=== PATIENT | female | born 1955 ===

== ENCOUNTER 2020-03-05 14:12 | Outpatient (REF) | payer MEDICARE, MEDICAID, SELFPAY ==
--- NOTE | 2020-03-05 15:22 | XR_ITS ---
EXAMINATION: XR CHEST CLINICAL INFORMATION: Asthma. COMPARISON: Chest x-ray 04/08/2008. TECHNIQUE: 2 views of the chest were obtained. FINDINGS: Lungs are clear. No pulmonary vascular congestion. There is no pleural effusion. The heart size is normal. The cardiac and mediastinal contours are normal. There are multilevel degenerative changes of dorsal spine. Orthopedic plate and screw at lower cervical spine. XR/XR chest 2V IMPRESSION: Unremarkable examination.
== END 2020-03-05 14:13 | disposition home or self-care (01) ==
LOC: HO.XRAY 14:12
PROVIDERS: PCP Internal Medicine; Visit Provider Internal Medicine
DX: J45.909 Unspecified asthma, uncomplicated (principal); R06.00 Dyspnea, unspecified; J98.4 Other disorders of lung; E66.9 Obesity, unspecified
CPT/HCPCS: 71046; 99202

== ENCOUNTER 2020-03-18 09:00 | Outpatient (RCR) | payer MEDICARE, MEDICAID, SELFPAY | END 2020-05-19 11:53 | disposition home or self-care (01) | LOC: HO.PTCHIC 09:00 | PROVIDERS: PCP Internal Medicine; Visit Provider Physician Assistant | DX: M54.5 Low back pain (principal) | CPT/HCPCS: 97014; 97110; 97140 ==

== ENCOUNTER 2020-04-08 08:39 | Outpatient (REF) | payer MEDICARE, MEDICAID, SELFPAY | END 2020-04-08 08:40 | disposition home or self-care (01) | LOC: HO.HMGCLDS 08:39 | PROVIDERS: PCP Internal Medicine; Visit Provider Internal Medicine | DX: Z20.828 Contact with and (suspected) exposure to other viral communicable diseases (principal) | CPT/HCPCS: C9803; U0003 ==

== ENCOUNTER 2020-05-01 09:34 | Outpatient (REF) | payer MEDICARE, MEDICAID, SELFPAY ==
[2020-05-01 11:25] LABS: Hematocrit 42.6 % (37-47); Hemoglobin 13.6 g/dl (12.0-16.0); Mean Corpuscular HGB Conc 31.9 g/dl (31.0-35.0); Mean Corpuscular Hemoglobin 28.5 pg (27.0-33.0); Mean Corpuscular Volume 89.1 fL (80-98); Mean Platelet Volume 11.4 fL (9.4-12.3); Platelet Count 288 X10*3/uL (160-400); Red Blood Count 4.78 X10*6/uL (4.20-5.50); Red Cell Distribution Width 13.7 % (11.0-16.0); White Blood Count 8.8 X10*3/uL (4.8-10.8)
[2020-05-01 11:38] LABS: Estimated Average Glucose 160 mg/dL; Hemoglobin A1c % 7.2 %
[2020-05-01 12:05] LABS: Thyroid Stimulating Hormone 2.32 uIU/mL (0.32-4.0)
[2020-05-01 12:07] LABS: Alanine Aminotransferase 25 U/L (0-31); Alkaline Phosphatase 86 U/L (39-117); Anion Gap 12 (12-20); Aspartate Amino Transferase 23 U/L (5-31); Bilirubin Direct 0.2 mg/dL (0.0-0.5); Bilirubin Total 0.4 mg/dL (0.0-1.0); Blood Urea Nitrogen 13 mg/dL (9-16); Calcium 8.9 mg/dL (8.4-10.2); Carbon Dioxide 31 mmol/L (22-29); Chloride 101 mmol/L (96-108); Cholesterol 164 mg/dL; Estimated Glomerular Filt Rate > 60; Glucose Random 167 mg/dL (60-115); HDL Cholesterol 66 mg/dL; LDL Cholesterol Calculated 79 mg/dl; Potassium 4.3 mmol/l (3.3-5.1); Sodium 140 mmol/L (135-145); Total Protein 6.4 g/dL (6.5-8.0); Triglycerides 99 mg/dL
== END 2020-05-01 09:35 | disposition home or self-care (01) ==
LOC: HO.HMGCLDS 09:34
PROVIDERS: PCP Internal Medicine; Visit Provider Internal Medicine
DX: E11.9 Type 2 diabetes mellitus without complications (principal); F33.2 Major depressive disorder, recurrent severe without psychotic features
CPT/HCPCS: 36415; 80048; 80061; 80076; 83036; 84443; 85027

== ENCOUNTER 2020-05-26 | Outpatient (REF) | payer MEDICARE, MEDICAID, SELFPAY ==
--- NOTE | 2020-05-26 11:56 | PFT_ITS ---
Forced vital capacity, FEV1, [id number], and MVV are all normal. Post bronchodilator therapy, there is no change. Total lung capacity is slightly decreased, the residual volume moderately decreased. Diffusion capacity normal. CONCLUSION: Mild restrictive pulmonary disorder. No evidence of obstructive airway disorder. Brissa Chirinos MD MSB/MODL / [id number]
== END 2020-05-26 00:01 | disposition home or self-care (01) ==
LOC: HO.RESP
PROVIDERS: PCP Internal Medicine; Visit Provider Internal Medicine
DX: R06.00 Dyspnea, unspecified (principal); F17.210 Nicotine dependence, cigarettes, uncomplicated; J45.909 Unspecified asthma, uncomplicated
CPT/HCPCS: 94060; 94727; 94729

== ENCOUNTER 2020-06-17 12:29 | Outpatient (REF) | payer MEDICARE, MEDICAID, SELFPAY ==
[2020-06-17 13:41] LABS: Anion Gap 15 (12-20); Blood Urea Nitrogen 13 mg/dL (9-16); Calcium 8.9 mg/dL (8.4-10.2); Carbon Dioxide 28 mmol/L (22-29); Chloride 103 mmol/L (96-108); Estimated Glomerular Filt Rate > 60; Glucose Random 139 mg/dL (60-115); Sodium 142 mmol/L (135-145)
== END 2020-06-17 12:30 | disposition home or self-care (01) ==
LOC: HO.LAB 12:29
PROVIDERS: PCP Internal Medicine; Visit Provider Internal Medicine Cardiovascular Disease
DX: I10 Essential (primary) hypertension (principal)
CPT/HCPCS: 36415; 80048

== ENCOUNTER → 2020-06-20 09:45 | Outpatient (BNVA) | payer MEDICARE, MEDICAID, SELFPAY | PROVIDERS: PCP Internal Medicine; Visit Provider Nurse Practitioner Gerontology | DX: E11.42 Type 2 diabetes mellitus with diabetic polyneuropathy (principal); I10 Essential (primary) hypertension; E78.5 Hyperlipidemia, unspecified; E66.9 Obesity, unspecified | CPT/HCPCS: 82947; 99212 ==

== ENCOUNTER → 2020-07-17 09:00 | Outpatient (BNVA) | payer MEDICARE, MEDICAID, SELFPAY | PROVIDERS: PCP Internal Medicine; Visit Provider Nurse Practitioner Gerontology | DX: Z13.89 Encounter for screening for other disorder (principal) | CPT/HCPCS: Q3014 ==

== ENCOUNTER → 2020-09-04 07:55 | Outpatient (REF) | payer MEDICARE, MEDICAID, SELFPAY ==
--- NOTE | ~2020-09-04 | NM_ITS ---
Myocardial perfusion study Indication: Chest pain to evaluate for myocardial ischemia Technique: The patient was brought in for a Lexiscan perfusion study on 09/04/2020. Patient performed low-level exercise and was injected 0.4 mg of Lexiscan intravenously. Within a minute of injection, 30 mCi of sestamibi was given intravenously. Images were obtained using the SPECT gamma camera interlaced with the gating device. Images were obtained in supine position. Resting perfusion study was performed on 09/05/2020. Patient was administered 30 mCi of sestamibi intravenously at rest. Images were then obtained in supine position. Images obtained with and without CT attenuation. Total DLP 112 mGy-cm. Images were processed with the software and compared side to side in short axis, horizontal long axis and vertical long axis views. Findings: The stress perfusion study showed non attenuated images show mildly to moderately reduced uptake in the lateral and anterolateral wall of the LV myocardium. Is also mildly reduced uptake in the basal inferior wall of the LV myocardium. Mildly reduced attenuation corrected images show some thinning of the distal anterior and mildly reduced uptake in the apex of the LV myocardium.. The gated study shows normal LV systolic function with calculated LVEF of 58%. LV cavity is mildly dilated size. The gated study shows normal systolic wall thickening and contraction of segments. Resting study shows non attenuated images show improved uptake in the lateral and anterolateral wall of the LV myocardium. Remainder of the LV myocardium is normally perfused. Attenuation corrected images show mildly reduced uptake in the apex of the LV myocardium.. Gating at rest reveals normal systolic wall motion with ejection fraction at 52%. The findings are consistent with mild to moderate intensity reversible defect of the lateral anterolateral wall non attenuated images, with normalized uptake on attenuated corrected images there is equivocal finding.. NM/NM misa perf SPECT rest & str Impression: 1. Myocardial perfusion imaging study shows equivocal for anterolateral and lateral ischemia. 2. Gated LVEF is 58% 3. Transient ischemic dilatation not present EKG is nondiagnostic for ischemia
--- NOTE | 2020-09-04 08:00 | CA_ITS ---
Acquisition Time: 2020-09-04 08:03:47 Total Exercise Time: 00:02:00 Test Indications: Chest Pain Medications: SEE H Protocol: LEXISCAN Max HR: 102 BPM 65% of Pred: 155 BPM Max BP: 124/070 mmHG Max Work Load: 1.6 METS Pharmacological stress test using Lexiscan while walking ontreadmill for 2 min. Pt tolerated well, Reports chest heaviness after Lexiscan injection 11/01, down to 3/10. Reserved with Aminophyline 75 mg IV. EKG with multiple multifocle PVC's, non-diagnostic for ischemia. Nuclear images to follow. Normotensive response to test. Test reviewed with Dr. Samuel. Referred By: Kris Barnes Overread By: Joana Bardales NP
== END ==
LOC: HO.CARD 07:55
PROVIDERS: PCP Internal Medicine; Visit Provider Internal Medicine Cardiovascular Disease
DX: R07.9 Chest pain, unspecified (principal)
CPT/HCPCS: 78452; 93016; 93017; 93018; A9500; J0280; J2785

== ENCOUNTER → 2020-09-16 09:52 | Outpatient (BNVA) | payer MEDICARE, MEDICAID, SELFPAY | PROVIDERS: PCP Internal Medicine; Visit Provider Nurse Practitioner Gerontology | DX: E11.42 Type 2 diabetes mellitus with diabetic polyneuropathy (principal); I10 Essential (primary) hypertension; E78.5 Hyperlipidemia, unspecified; E66.9 Obesity, unspecified | CPT/HCPCS: 82947; 99212 ==

== ENCOUNTER 2020-10-08 08:48 | Outpatient (REF) | payer MEDICARE, MEDICAID, SELFPAY ==
--- NOTE | ~2020-10-08 | XR_ITS ---
EXAMINATION: XR HIP, LEFT CLINICAL INFORMATION: Primary osteoarthritis. COMPARISON: None TECHNIQUE: Two views of the left hip. FINDINGS: There is minimal loss of left hip joint space without periarticular spurring. No loose bodies or joint effusion seen. There are enthesophytes along the greater trochanter. XR/XR hip LT min 2V IMPRESSION: Minimal loss of left hip joint space, likely early degenerative osteoarthritic changes. No visible acute fracture or dislocation. Mild enthesophytes along the greater trochanter.
== END 2020-10-08 08:49 | disposition home or self-care (01) ==
LOC: HO.XRAY 08:48
PROVIDERS: PCP Internal Medicine; Visit Provider Nurse Practitioner Family
DX: M53.3 Sacrococcygeal disorders, not elsewhere classified (principal); M16.12 Unilateral primary osteoarthritis, left hip
CPT/HCPCS: 73502; 99212

== ENCOUNTER → 2020-10-21 09:54 | Outpatient (BNVA) | payer MEDICARE, MEDICAID, SELFPAY | PROVIDERS: PCP Internal Medicine; Visit Provider Dietitian, Registered | DX: E11.42 Type 2 diabetes mellitus with diabetic polyneuropathy (principal) | CPT/HCPCS: 97802 ==

== ENCOUNTER → 2020-10-22 09:25 | Outpatient (BNVA) | payer MEDICARE, MEDICAID, SELFPAY | PROVIDERS: PCP Internal Medicine; Visit Provider Nurse Practitioner Family | DX: M53.3 Sacrococcygeal disorders, not elsewhere classified (principal); M16.12 Unilateral primary osteoarthritis, left hip | CPT/HCPCS: 99212 ==

== ENCOUNTER → 2020-11-07 08:49 | Outpatient (BNVA) | payer MEDICARE, MEDICAID, SELFPAY | PROVIDERS: PCP Internal Medicine; Visit Provider Nurse Practitioner Family | DX: M53.3 Sacrococcygeal disorders, not elsewhere classified (principal); M16.12 Unilateral primary osteoarthritis, left hip; Z79.899 Other long term (current) drug therapy | CPT/HCPCS: 99212 ==

== ENCOUNTER 2020-12-03 06:33 | Outpatient (REF) | payer MEDICARE, MEDICAID, SELFPAY ==
--- NOTE | ~2020-12-03 | FL_ITS ---
EXAMINATION: XR FLUOROSCOPY WITH IMAGES CLINICAL INFORMATION: M53.3 - Sacrococcygeal disorders, not elsewhere classified COMPARISON: MR lumbar spine 12/02/2017 TECHNIQUE: Fluoroscopy performed by Any Rodarte NP. Fluoroscopy time: 0.4 minutes DAP: 5.44 Gycm2 Images: 3 FINDINGS: There are spinal needles overlying the lower aspect of the left SI joint and the right SI joint. There is another needle coarsening midline, possibly overlying the patient. FL/FL guidance in treatment room IMPRESSION: Fluoroscopy for pain management procedures.
== END 2020-12-03 06:34 | disposition home or self-care (01) ==
LOC: HO.RADIR 06:33
PROVIDERS: Visit Provider Internal Medicine
DX: M53.3 Sacrococcygeal disorders, not elsewhere classified (principal)
CPT/HCPCS: 27096; J1040; Q9967

== ENCOUNTER → 2020-12-04 08:36 | Outpatient (BNVA) | payer MEDICARE, MEDICAID, SELFPAY | PROVIDERS: PCP Internal Medicine; Visit Provider Nurse Practitioner Family | DX: M53.3 Sacrococcygeal disorders, not elsewhere classified (principal); M16.12 Unilateral primary osteoarthritis, left hip | CPT/HCPCS: 99212 ==

== ENCOUNTER → 2021-01-02 13:57 | Outpatient (BNVA) | payer MEDICARE, MEDICAID, SELFPAY | PROVIDERS: PCP Internal Medicine; Visit Provider Nurse Practitioner Family | DX: M96.1 Postlaminectomy syndrome, not elsewhere classified (principal); M54.2 Cervicalgia; M54.16 Radiculopathy, lumbar region | CPT/HCPCS: 99212 ==

== ENCOUNTER → 2021-01-15 08:55 | Outpatient (BNVA) | payer MEDICARE, MEDICAID, SELFPAY | PROVIDERS: PCP Internal Medicine; Visit Provider Dietitian, Registered | DX: E11.42 Type 2 diabetes mellitus with diabetic polyneuropathy (principal) | CPT/HCPCS: 97803 ==

== ENCOUNTER → 2021-01-30 12:53 | Outpatient (BNVA) | payer MEDICARE, MEDICAID, SELFPAY | PROVIDERS: Visit Provider Nurse Practitioner Family | DX: Z51.81 Encounter for therapeutic drug level monitoring (principal); M53.3 Sacrococcygeal disorders, not elsewhere classified; M16.12 Unilateral primary osteoarthritis, left hip | CPT/HCPCS: 99212 ==

== ENCOUNTER → 2021-02-27 09:49 | Outpatient (BNVA) | payer MEDICARE, MEDICAID, SELFPAY | PROVIDERS: Visit Provider Nurse Practitioner Family | DX: Z51.81 Encounter for therapeutic drug level monitoring (principal); M54.16 Radiculopathy, lumbar region; M54.2 Cervicalgia; M96.1 Postlaminectomy syndrome, not elsewhere classified | CPT/HCPCS: 99212 ==

== ENCOUNTER → 2021-03-24 10:02 | Outpatient (BNVA) | payer MEDICARE, MEDICAID, SELFPAY | PROVIDERS: PCP Internal Medicine; Visit Provider Nurse Practitioner Gerontology | DX: M54.2 Cervicalgia (principal); M96.1 Postlaminectomy syndrome, not elsewhere classified; M47.819 Spondylosis without myelopathy or radiculopathy, site unspecified; E11.42 Type 2 diabetes mellitus with diabetic polyneuropathy; E78.5 Hyperlipidemia, unspecified; E66.9 Obesity, unspecified; I10 Essential (primary) hypertension; Z68.32 Body mass index [BMI] 32.0-32.9, adult | CPT/HCPCS: 82947; 99212; Q3014 ==

== ENCOUNTER 2021-04-14 06:12 | Outpatient (REF) | payer MEDICARE, MEDICAID, SELFPAY ==
--- NOTE | ~2021-04-14 | FL_ITS ---
EXAMINATION: XR FLUOROSCOPY WITH IMAGES CLINICAL INFORMATION: M47.819 - Spondylosis without myelopathy or radiculopathy COMPARISON: MR lumbar spine 12/02/2017 TECHNIQUE: Fluoroscopy performed by Dr. Olvin Quijano. Fluoroscopy time: 0.5 minutes DAP: 5.94 Gycm2 Images: 6 FINDINGS: There are spinal needles overlying the bilateral outer L3, L4, and L5 neural foramen. There is contrast seen in the respective nerve sheaths. Some early transforaminal epidural extension is suggested. No visible vascular communication. FL/FL guidance in treatment room IMPRESSION: Fluoroscopy for pain management procedures.
== END 2021-04-14 06:13 | disposition home or self-care (01) ==
LOC: HO.RADIR 06:12
PROVIDERS: Visit Provider Anesthesiology
DX: M47.816 Spondylosis without myelopathy or radiculopathy, lumbar region (principal); M54.2 Cervicalgia; M96.1 Postlaminectomy syndrome, not elsewhere classified
CPT/HCPCS: 64493; 64494; Q9967

== ENCOUNTER → 2021-04-28 16:29 | Outpatient (BNVA) | payer MEDICARE, MEDICAID, SELFPAY | PROVIDERS: PCP Internal Medicine; Visit Provider Nurse Practitioner Family | DX: M54.2 Cervicalgia (principal); M96.1 Postlaminectomy syndrome, not elsewhere classified; M47.819 Spondylosis without myelopathy or radiculopathy, site unspecified | CPT/HCPCS: Q3014 ==

== ENCOUNTER 2021-06-08 08:48 | Outpatient (REF) | payer MEDICARE, MEDICAID, SELFPAY ==
[2021-06-08 09:31] LABS: Hematocrit 43.4 % (37.0-47.0); Hemoglobin 14.3 g/dl (12.0-16.0); Mean Corpuscular HGB Conc 32.9 g/dl (31.0-35.0); Mean Corpuscular Hemoglobin 28.4 pg (27.0-33.0); Mean Corpuscular Volume 86.3 fL (80.0-98.0); Mean Platelet Volume 10.7 fL (9.4-12.3); Platelet Count 286 X10*3/uL (160-400); Red Blood Count 5.03 X10*6/uL (4.20-5.50); White Blood Count 8.4 X10*3/uL (4.8-10.8)
[2021-06-08 09:33] LABS: Appearance Urine CLEAR; Color Urine YELLOW; Glucose Urine UA NEG (NEG); Leukocyte Esterase Urine NEG (NEG); Nitrite Urine NEG (NEG); Specific Gravity - Urine >= 1.030 (1.005-1.025); Urine Blood 1+ (NEG); Urine Ketones NEG (NEG); Urine Protein TRACE MG/DL (NEG-TRACE)
[2021-06-08 09:54] LABS: Creatinine Urine 158.56 mg/dL; Microalbum/Creatinine Ratio Ur 64.3 ug/mg cr
[2021-06-08 09:58] LABS: Alanine Aminotransferase 19 U/L (0-31); Alkaline Phosphatase 98 U/L (39-117); Anion Gap 11 (12-20); Aspartate Amino Transferase 17 U/L (5-31); Bilirubin Direct 0.2 mg/dL (0.0-0.5); Bilirubin Total 0.5 mg/dL (0.0-1.0); Blood Urea Nitrogen 18 mg/dL (9-16); Calcium 9.2 mg/dL (8.4-10.2); Carbon Dioxide 29 mmol/L (22-29); Chloride 104 mmol/L (96-108); Cholesterol 212 mg/dL; Estimated Glomerular Filt Rate > 60; Glucose Random 117 mg/dL (60-115); HDL Cholesterol 69 mg/dL; LDL Cholesterol Calculated 111 mg/dl; Potassium 4.2 mmol/L (3.3-5.1); Sodium 140 mmol/L (135-145); Total Protein 6.5 g/dL (6.5-8.0); Triglycerides 161 mg/dL
[2021-06-08 10:04] LABS: Bacteria Urine TRACE /LPF; Squamous Epithelial Cell Urine 1+ /LPF
[2021-06-08 10:20] LABS: Thyroid Stimulating Hormone 1.34 uIU/mL (0.32-4.0)
[2021-06-08 10:35] LABS: Folate 6.7 ng/mL (> or = 4.0); Vitamin B12 390 pg/mL (200-900)
[2021-06-12 13:03] LABS: Vitamin D 25-OH, D2 <4 ng/mL; Vitamin D 25-OH, D3 27 ng/mL; Vitamin D 25-OH, Total 27 ng/mL (30-100)
== END 2021-06-08 08:49 | disposition home or self-care (01) ==
LOC: HO.LAB 08:48
PROVIDERS: Absent Provider Nurse Practitioner Gerontology; PCP Internal Medicine; Visit Provider Internal Medicine
DX: F09 Unspecified mental disorder due to known physiological condition (principal); E11.42 Type 2 diabetes mellitus with diabetic polyneuropathy
CPT/HCPCS: 36415; 80048; 80061; 80076; 81001; 82043; 82306; 82607; 82746; 84443; 85027

== ENCOUNTER 2021-06-17 11:48 | Day surgery (SDC) | payer MEDICARE, MEDICAID, SELFPAY ==
[2021-06-11 09:55] VITALS: BMI 32.3
--- NOTE | 2021-06-16 11:49 | P.CONAN_ITS ---
Documented by User: Amy Schulz NP 06/16/21 11:57 HPI - Anesthesia Eval Consult details Narrative: 65yo F for Bilateral L3-L4-DR L5 Medial Branches Radiofrequency AB Stable at 03/2021 cardiol office visit [facility] Active Problems Active Problems: All Active Problems (Updated 05/15/21 @ 10:47 by SAMRA Berger) Postlaminectomy syndrome, lumbar (Acute) Cervicalgia (Acute) Left lumbar radiculopathy (Acute) Left ear pain (Acute) Facet arthropathy, multilevel (Acute) Sinusitis (Acute) Otitis media of left ear (Acute) Chronic sinusitis (Acute) Osteopenia (Acute) Mild cognitive disorder (Acute) Type 2 diabetes mellitus with diabetic polyneuropathy (Acute) Essential hypertension (Acute) Hyperlipidemia LDL goal <70 (Acute) Obesity, Class I, BMI 30-34.9 (Acute) Endogenous depression (Acute) Asthma (Acute) Restrictive lung disease (Acute) Obesity (BMI 30-39.9) (Acute) Dyspnea on exertion (Acute) Asthma (Acute) Past Medical History Medical History (Updated 05/15/21 @ 10:47 by SAMRA Berger) Annual physical exam Asthma Asthma Dyspnea on exertion Endogenous depression Essential hypertension Fibromyalgia Hypercholesterolemia Hyperlipidemia LDL goal <70 Lower thoracic back pain Lumbar facet arthropathy Mild cognitive disorder Mitral valve prolapse Obesity (BMI 30-39.9) Obesity, Class I, BMI 30-34.9 Osteoarthritis of left hip Osteopenia Restrictive lung disease RLS (restless legs syndrome) Sacroiliac joint pain Type 2 diabetes mellitus with diabetic polyneuropathy Venous insufficiency Family History Family History Father Lung cancer Diabetes Mother Colon cancer Diabetes Maternal Grandmother Breast cancer Brother S/P triple vessel bypass Diabetes Family/Other Hypertension Hyperlipidemia Surgical History Surgical History (Updated 06/11/21 @ 09:54 by Brandy Stoner RN) H/O total cystectomy History of bone graft History of cataract surgery History of cervical spinal surgery History of cholecystectomy History of hand surgery History of hysterectomy History of lumbar surgery History of shoulder surgery History of total abdominal hysterectomy and bilateral salpingo-oophorectomy Hx of repair of rotator cuff Status post surgical removal of malignant neoplasm of skin Social History Social History Household Members: None Housing: House Are you a primary client care consultant to a significant other at home: No Do you presently have visiting nurse or other home services: Yes (SUPPORT SERVICES MANAGER 3x week) Alcohol intake: current Alcohol intake frequency: does not drink Patient Tobacco Use Status: Never used Tobacco e-Cigarette/Vaping Use: Never Used Second Hand Smoke Exposure: No Use of substances other than those prescribed or required for medical reasons: No Have you been hit, kicked, punched, or otherwise hurt by someone within the past year? If so, by whom?: No Are you DNR?: No Advance Directives: No Advance Directives Information Provided: Yes Advance Directives on File: No Recently lost weight without trying: No service: No Current occupational status: disabled Cognitive needs: Yes (cane) Hearing needs: Yes (hearing aides) Vision needs: Yes (Reading glasses) Meds Allergies Allergy/AdvReac Type Severity Reaction Status Date / Time duloxetine [Cymbalta] Allergy Intermediate spasms Verified 06/11/21 09:49 oxycodone [From PERCOCET] Allergy Intermediate sensitivity, Verified 06/11/21 09:49 dizziness Home Medications Medication Instructions Recorded Confirmed Last Taken Type lancets 28 gauge #100 ea 03/05/20 05/15/21 Unknown History carvedilol 6.25 mg tablet 6.25 mg PO BID 03/24/21 06/11/21 06/17/21 History atorvastatin 20 mg tablet 20 mg PO BEDTIME 06/11/21 06/11/21 Unknown History escitalopram oxalate 10 mg tablet 10 mg PO BEDTIME 06/11/21 06/11/21 Unknown History fluticasone propionate 50 1 spray INTRANASAL DAILY PRN 06/11/21 06/11/21 Unknown History mcg/actuation nasal spray,suspension (Flonase Allergy Relief) Exam Exam Date and Time: June 16, 2021 1149 Height,Weight and Vital Signs: Height 5 ft 6 in Weight 90.718 kg Narrative Narrative: NM misa perf SPECT rest & str 08/2020 Impression: ? 1.? Myocardial perfusion imaging study shows equivocal for anterolateral and lateral ischemia. 2.? Gated LVEF is 58% 3. Transient ischemic dilatation not present ? EKG is nondiagnostic for ischemia Per cardiology note, pt referred for cardiac cath which revealed nonobstruction. ECHO 10/2020 Overall LV systolic function is low-normal with EF 50-55% (No mitral regurg or stenosis) EKG 10/2020 NSR @ [address] abnormality Assessment and Plan Assessment Anesthesia Assessment: Chart Reviewed Documented by User: Bob Arevalo MD 06/17/21 15:53 [facility] Past Medical History Medical History (Updated 05/15/21 @ 10:47 by SAMRA Berger) Annual physical exam Asthma Asthma Dyspnea on exertion Endogenous depression Essential hypertension Fibromyalgia Hypercholesterolemia Hyperlipidemia LDL goal <70 Lower thoracic back pain Lumbar facet arthropathy Mild cognitive disorder Mitral valve prolapse Obesity (BMI 30-39.9) Obesity, Class I, BMI 30-34.9 Osteoarthritis of left hip Osteopenia Restrictive lung disease RLS (restless legs syndrome) Sacroiliac joint pain Type 2 diabetes mellitus with diabetic polyneuropathy Venous insufficiency Family History Family History Father Lung cancer Diabetes Mother Colon cancer Diabetes Maternal Grandmother Breast cancer Brother S/P triple vessel bypass Diabetes Family/Other Hypertension Hyperlipidemia Family history of problems with anesthesia: No Surgical History Surgical History (Updated 06/11/21 @ 09:54 by Brandy Stoner, JEAN) H/O total cystectomy History of bone graft History of cataract surgery History of cervical spinal surgery History of cholecystectomy History of hand surgery History of hysterectomy History of lumbar surgery History of shoulder surgery History of total abdominal hysterectomy and bilateral salpingo-oophorectomy Hx of repair of rotator cuff Status post surgical removal of malignant neoplasm of skin History of Problems with Anesthesia: Yes (Ponv ) Social History Social History Household Members: None Housing: House Are you a primary client care consultant to a significant other at home: No Do you presently have visiting nurse or other home services: Yes (SUPPORT SERVICES MANAGER 3x week) Alcohol intake: current Alcohol intake frequency: does not drink Patient Tobacco Use Status: Never used Tobacco e-Cigarette/Vaping Use: Never Used Second Hand Smoke Exposure: No Use of substances other than those prescribed or required for medical reasons: No Have you been hit, kicked, punched, or otherwise hurt by someone within the past year? If so, by whom?: No Are you DNR?: No Advance Directives: No Advance Directives Information Provided: Yes Advance Directives on File: No Recently lost weight without trying: No service: No Current occupational status: disabled Cognitive needs: Yes (cane) Hearing needs: Yes (hearing aides) Vision needs: Yes (Reading glasses) Meds Allergies Allergy/AdvReac Type Severity Reaction Status Date / Time duloxetine [Cymbalta] Allergy Intermediate spasms Verified 06/11/21 09:49 oxycodone [From PERCOCET] Allergy Intermediate sensitivity, Verified 06/11/21 09:49 dizziness Home Medications Medication Instructions Recorded Confirmed Last Taken Type lancets 28 gauge #100 ea 03/05/20 05/15/21 Unknown History carvedilol 6.25 mg tablet 6.25 mg PO BID 03/24/21 06/11/21 06/17/21 History atorvastatin 20 mg tablet 20 mg PO BEDTIME 06/11/21 06/11/21 Unknown History escitalopram oxalate 10 mg tablet 10 mg PO BEDTIME 06/11/21 06/11/21 Unknown History fluticasone propionate 50 1 spray INTRANASAL DAILY PRN 06/11/21 06/11/21 Unknown History mcg/actuation nasal spray,suspension (Flonase Allergy Relief) Exam Airway Mallampati Class: II TM Dist: >3cm Neck ROM: Full Denture: Upper Loose/Missing/Broken Teeth: Yes Heart: rrr Lungs: bl breath sounds Assessment and Plan Assessment Anesthesia Assessment: Anesthesia Plan Discussed Final Anesthetic Review Family History of Problems with Anesthesia: No History of Problems with Anesthesia: Yes (Ponv ) NPO: Yes ASA Class: III Final Preanesthetic Review: No Changes in Pt Med Stat, Meds/Allgs Chart Reviewed, Consent Obtained/Reviewed and Anes Risks/Benef Reviewed Patient Risk: High Procedure Risk: Intermediate Anesthetic Plan Anesthetic Plan: MAC: Disposition: Standard PACU
[2021-06-17] VITALS (9 sets, daily range): BP systolic 157–213; BP diastolic 69–105; PULSE 68–81; RESP 12–20; TEMP 36.5–37.7; O2SAT 93–97
--- NOTE | ~2021-06-17 | FL_ITS ---
EXAMINATION: FL guidance in OR INDICATION: Reason for Exam l3 l4 dr [id number] branches radiofrequency ab bilat COMPARISON: No pertinent prior studies are currently available for comparison. TECHNIQUE: Multiple fluoroscopic OR images were provided. FLUOROSCOPY TIME: 0.8 minutes DOSE AREA PRODUCT: 7.32 Gy-cm2 FINDINGS: Intraoperative fluoroscopy was provided. No radiologist was in attendance. Please refer to operative report for complete evaluation. FL/FL guidance in OR IMPRESSION: Intraoperative fluoroscopy was provided. No radiologist was in attendance. Please refer to operative report for complete evaluation.
[2021-06-17 12:22] LABS: Glucose, Whole Blood 109 mg/dL (60-115)
[2021-06-17] MEDS: Lactated Ringers 1,000 ML 100 ML IVCONT (12:28)
--- NOTE | 2021-06-17 13:25 | MHC.SHP ---
Pre-Procedural Eval Section A Date of Service: 06/17/21 The patient is an INPATIENT: No Changes since office visit: Yes Patient answered all questions The History & Physical has been completed within 30 days and I have reviewed it.: Yes Section B Chief Complaint: Facet Arthropathy, Multilevel Relevant Family History (Specify if Yes): No History of Previous Operations: No relevant previous surgery Allergies: Allergies Allergy/AdvReac Type Severity Reaction Status Date / Time duloxetine [Cymbalta] Allergy Intermediate spasms Verified 06/11/21 09:49 oxycodone [From PERCOCET] Allergy Intermediate sensitivity, Verified 06/11/21 09:49 dizziness Review of Systems Sugical H&P ROS: Negative: Constitution Plan Diagnosis/Plan: Unchanged I have reviewed the history and physical and performed a pertinent physical examination on my patient. No changes have occurred unless specified. Proceed with bilateral lumbar RFA of the medial branches; patient in agreement.
--- NOTE | 2021-06-17 13:26 | P.OP_ITS ---
Operative Note Operative Note Date of Service: 06/17/21 Narrative: Radiofrequency lesioning medial branch nerves, Bilateral L3, L4 medial branches and L5 dorsal ramus (L4/5 and L5/S1) (2 levels, 3 nerves) After obtaining written consent, pre-procedure blood pressure and heart rate were stable and recorded in the nursing record. Standard monitors were applied. The patient was placed in the prone position and sedated by the police and fire dispatcher. The lumbar area was prepped with chloraprep and draped in sterile fashion. The skin over the target for each medial branch nerve was anesthetized with 0.5% lidocaine. An 18 gauge radiofrequency cannula was advanced to each target site u nder fluoroscopic guidance. No paresthesias were elicited with needle placement and aspiration was negative for heme and CSF. Impedences were verified under 600 ohms. Motor testing (2 Hz) confirmed needle placement at each site within the appropriate voltage thresholds. Each site was injected with 0.5 ml 2% preservative-free lidocaine. Radiofrequency lesioning was performed for 90 seconds at 80 deg Celcius. The needle was removed, skin cleansed and a sterile bandage was applied. The patient tolerated the procedure well and no complications were encountered. Following the procedure the patient's vital signs were stable in the PACU. The patient was discharged home in good condition with post-procedural instructions. Time Out: Immediately prior to the procedure, the following was verbally co nfirmed that there is a signed consent form and that the correct patient, planned procedure, site and side are consistent with documentation and that necessary equipment and/or blood products are available prior to the start of the case. Complications: none EBL: <1 cc
--- NOTE | 2021-06-17 13:27 | P.BOP_ITS ---
Brief Operative Note Date of Service: 06/17/21 Pre-op diagnosis: Lumbar spondylosis Post-op diagnosis: same Procedure: Bilateral lumbar medial branch L3, L4, L5 Dorsal Ramus radiofrequency ablation Implants: None Surgeon: Herber Heart MD Anesthesia: MAC Was an Felt Hat Flanging Operator used for this Procedure?: No Estimated blood loss (mL): 1 Pathology: none sent Condition: stable Disposition: PACU
[2021-06-17] MEDS: hydrALAZINE HCl 20 MG/ML VIAL 5 MG IVPUSH ×3 (15:24→15:46)
--- NOTE | 2021-06-17 15:48 | PC.NURSE ---
PATIENT OOB AMBULATED TO BATHROOM TO VOID. DR. RENTERIA AWARE OF B/P SLIGHTLY IMPROVED ADDITIONAL DOSE OF IV HYDRALAZING ORDERED
[2021-06-17] MEDS: carvediloL 6.25 MG TABLET PO (16:11)
== END 2021-06-17 17:08 | disposition home or self-care (01) ==
PROVIDERS: PCP Internal Medicine; Visit Provider Internal Medicine
PROC: (CPT 64635; principal; 2021-06-17 13:20)
DX: M47.816 Spondylosis without myelopathy or radiculopathy, lumbar region (principal); M54.50 Low back pain, unspecified; M96.1 Postlaminectomy syndrome, not elsewhere classified; M54.2 Cervicalgia; Z98.890 Other specified postprocedural states; M53.3 Sacrococcygeal disorders, not elsewhere classified; M79.7 Fibromyalgia; M85.80 Other specified disorders of bone density and structure, unspecified site; M16.12 Unilateral primary osteoarthritis, left hip; I10 Essential (primary) hypertension; J45.909 Unspecified asthma, uncomplicated; E11.42 Type 2 diabetes mellitus with diabetic polyneuropathy; G31.84 Mild cognitive impairment of uncertain or unknown etiology; E66.9 Obesity, unspecified; Z79.4 Long term (current) use of insulin; Z79.51 Long term (current) use of inhaled steroids; Z79.899 Other long term (current) drug therapy; Z88.8 Allergy status to other drugs, medicaments and biological substances
CPT/HCPCS: 64635; 64636 ×2; 82947; J1100; J2250; J2405; J3010; J3300; Q9967

== ENCOUNTER → 2021-07-17 10:11 | Outpatient (BNVA) | payer MEDICARE, MEDICAID, SELFPAY | PROVIDERS: PCP Internal Medicine; Visit Provider Nurse Practitioner Family | DX: Z13.89 Encounter for screening for other disorder (principal) | CPT/HCPCS: Q3014 ==

== ENCOUNTER 2021-08-12 08:59 | Outpatient (REF) | payer MEDICARE, MEDICAID, SELFPAY ==
--- NOTE | ~2021-08-12 | MM_ITS ---
EXAMINATION: BONE DENSITOMETRY CLINICAL INDICATION: Osteopenia. COMPARISON: Previous BD dated 05/21/2011 and baseline BD dated 03/07/2009. TECHNIQUE: Using a [employer] DXA System (software version: 13.1) manufactured by [employer], dual-energy x-ray absorptiometry was performed of the lumbar spine and left hip. The images are of good technical quality. Summary results are attached. FINDINGS: AP SPINE L1-L4: Current: BMD 0.980 g/cm2, Z-score -1.1, T-score -1.7, osteopenia, 2.7% increase from previous, 0.6% increase from baseline (<5% change is not significant). Prior: BMD 0.954 g/cm2. Baseline: BMD 0.974 g/cm2. LEFT FEMUR, NECK: Current: BMD 0.885 g/cm2, Z-score -0.3, T-score -1.1, osteopenia. Prior: BMD 0.830 g/cm2. Baseline: BMD 0.870 g/cm2. LEFT FEMUR, TOTAL: Current: BMD 0.900 g/cm2, Z-score -0.3, T-score -0.9, normal, 3.1% increase from previous, 1.7% increase from baseline (<5% change is not significant). Prior: BMD 0.873 g/cm2. Baseline: BMD 0.885 g/cm2. IDENTIFIED RISK FACTORS: Early menopause, family history (parent hip fracture), height loss, bilateral oophorectomy, hysterectomy, osteoporosis, secondary osteoporosis. HISTORY OF FRACTURE: None listed. MEDICATIONS: Vitamin D. MM/XR DEXA axial skeleton IMPRESSION: 1. DIAGNOSIS: Osteopenia based on the lowest T-score value of -1.7 in the lumbar spine applying World Health Organization criteria. 2. 10-YEAR FRACTURE RISK PREDICTION, FRAX: Major osteoporotic fracture (clinical spine, forearm, hip or shoulder) 14.1%. Hip fracture 0.9%. 3. Treatment Recommendations: NOF guidelines recommend consideration for treatment in postmenopausal women and men age 50 and older presenting with the following: -A hip or vertebral (clinical or morphometric) fracture. -T-score less than or equal to -2.5 at the femoral neck or spine after appropriate evaluation to exclude secondary causes. -Low bone mass at the hip or spine and a 10-year fracture probability by FRAX of greater than or equal to 3% for hip fracture or greater than or equal to 20% for major osteoporotic fracture based on the [place] adapted WHO algorithm. 4. Other Recommendations: All treatment decisions require clinical judgment and consideration of individual patient factors, including patient preferences, comorbidities, previous drug use, risk factors not captured in the FRAX model (e.g. frailty, falls, vitamin D deficiency, increased bone turnover, interval significant decline in bone density) and possible under or overestimation of fracture risk by FRAX. Additional medical evaluation for secondary cause of low bone mineral density may be appropriate. FUTURE SCAN RECOMMENDATION: People with diagnosed cases of osteoporosis or at high risk for fracture should have regular bone mineral density tests. For patients eligible for Medicare, routine testing is allowed once every 2 years. The testing frequency can be increased to one year for patients who have rapidly progressing disease, those who are receiving or discontinuing medical therapy to restore bone mass, or have additional risk factors.
== END 2021-08-12 09:00 | disposition home or self-care (01) ==
LOC: HO.MAMMO 08:59
PROVIDERS: PCP Internal Medicine; Visit Provider Nurse Practitioner Family
DX: Z13.820 Encounter for screening for osteoporosis (principal); M85.80 Other specified disorders of bone density and structure, unspecified site; Z78.0 Asymptomatic menopausal state; Z90.722 Acquired absence of ovaries, bilateral; Z90.710 Acquired absence of both cervix and uterus
CPT/HCPCS: 77080

== ENCOUNTER 2021-10-22 10:00 | Outpatient (RCR) | payer MEDICARE, MEDICAID, SELFPAY ==
--- NOTE | 2021-07-28 08:58 | MHC.PT.EP ---
[facility] [place] Office [place] Office [place] Office [address] Rhett Banerjee [address] [phone] F: [phone] F: [phone] F: [phone] F: [phone] Physical Therapy Plan of Care Date of Evaluation: Date of Surgery: 06/17/21 Diagnosis: post laminectomy syndrome Assessment: Patient is a 65 year old R handed female who presents with s/s consistent with low back pain, post laminectomy syndrome. She does not work but has a new puppy she likes to walk during the day. This task has been getting more and more difficult as her functional mobility has deteriorated. Patient past medical history is complex, including multiple surgeries and comorbidities. Current impairments include pain, posture, ROM, strength, activity tolerance, flexibility, and functional mobility. Functional limitations include decreased ability to sit, stand, walk, lay supine, exercise, and tend to house/yard. Patient is motivated with good rehab potential. Skilled PT will address impairments and functional limitations in order to achieve goals. Frequency and Duration: The patient will be seen 2x/week for 5 weeks Short Term Goals: I with HEP - 2 weeks HS and gastroc flex WNL - 3 weeks Lumbar rotation 50% - 3 weeks [facility]ci Goals: Able to walk 20 minutes without increased pain, or rest - 5 weeks Oswestry 20% or less - 5 weeks Able to perform all ADLs 3/10 pain or less - 5 weeks Treatment Plan: Modalities to reduce pain, spasms and effusion. Manual therapy to restore motion and function. Therapeutic exercise to improve strength and flexibility. Neuromuscular re-education for posture and balance. Therapeutic activities to return to functional activities of daily living. Electronically signed by: Chauncey Shelton, PT Please sign and return to therapist. Thank you for your referral.
--- NOTE | 2022-01-14 09:58 | MHC.PT.DC ---
[facility] [place] Office [place] [facility] [place] [facility] [address] Rhett Banerjee [address] [phone] F: [phone] F: [phone] F: [phone] F: [phone] Physical Therapy Discharge Report Diagnosis: post laminectomy syndrome Date of Surgery: 06/17/21 Date of Evaluation: 07/28/21 Date of Discharge: 10/26/21 Treatments to Date: 16 Cancellations to Date: No Shows to Date: Discharge Status: Improved Function Independent with HEP Discharge Summary: ISsued updated HEP. having appt with MD and procedure so we will hold on PT at this time until pt follwos up. She is I with HEP. HS and gastroc flex wNL. Lumbar rotation 50% b/l. She is able to walk 10 minutes at this time before increased pain. She has been having more pain this week due to other reasons. Electronically signed by: Chauncey Shelton, PT Please sign and return to therapist. Thank you for your referral.
== END 2022-01-14 09:59 | disposition home or self-care (01) ==
LOC: HO.PTCHIC 10:00
PROVIDERS: PCP Internal Medicine; Visit Provider Nurse Practitioner Family
DX: M47.819 Spondylosis without myelopathy or radiculopathy, site unspecified (principal); M54.6 Pain in thoracic spine; M96.1 Postlaminectomy syndrome, not elsewhere classified
CPT/HCPCS: 97110; 97112; 97140; 97163

== ENCOUNTER 2021-12-10 13:44 | Outpatient (REF) | payer MEDICARE, MEDICAID, SELFPAY | END 2021-12-10 13:45 | disposition home or self-care (01) | LOC: HO.LNP 13:44 | PROVIDERS: Visit Provider Internal Medicine | DX: R31.9 Hematuria, unspecified (principal); M54.9 Dorsalgia, unspecified; R30.0 Dysuria | CPT/HCPCS: 87086; 87088; 87186 ==

== ENCOUNTER 2021-12-24 08:54 | Outpatient (REF) | payer MEDICARE, MEDICAID, SELFPAY ==
[2021-12-24 09:53] LABS: Hematocrit 44.4 % (37.0-47.0); Hemoglobin 14.6 g/dl (12.0-16.0); Mean Corpuscular HGB Conc 32.9 g/dl (31.0-35.0); Mean Corpuscular Hemoglobin 28.9 pg (27.0-33.0); Mean Corpuscular Volume 87.9 fL (80.0-98.0); Mean Platelet Volume 10.5 fL (9.4-12.3); Platelet Count 277 X10*3/uL (160-400); Red Blood Count 5.05 X10*6/uL (4.20-5.50); Red Cell Distribution Width 13.4 % (11.0-16.0); White Blood Count 10.3 X10*3/uL (4.8-10.8)
[2021-12-24 10:03] LABS: Estimated Average Glucose 146 mg/dL; Hemoglobin A1c % 6.7 %
[2021-12-24 10:32] LABS: Alanine Aminotransferase 20 U/L (0-31); Albumin Level 4.3 g/dL (3.5-5.0); Alkaline Phosphatase 100 U/L (39-117); Anion Gap 17 (12-20); Aspartate Amino Transferase 18 U/L (5-31); Bilirubin Direct 0.2 mg/dL (0.0-0.5); Bilirubin Total 0.5 mg/dL (0.0-1.0); Blood Urea Nitrogen 13 mg/dL (9-16); Calcium 9.5 mg/dL (8.4-10.2); Carbon Dioxide 27 mmol/L (22-29); Chloride 102 mmol/L (96-108); Cholesterol 211 mg/dL; Estimated Glomerular Filt Rate > 60; Glucose Random 141 mg/dL (60-115); HDL Cholesterol 69 mg/dL; LDL Cholesterol Calculated 112 mg/dl; Potassium 4.9 mmol/L (3.3-5.1); Sodium 141 mmol/L (135-145); Total Protein 6.8 g/dL (6.5-8.0); Triglycerides 153 mg/dL
[2021-12-24 12:04] LABS: Color Urine Yellow; Glucose Urine UA Negative (Negative); Leukocyte Esterase Urine Moderate (2+) (Negative); Nitrite Urine Negative (Negative); Urine Blood Negative (Negative); Urine Ketones Negative (Negative); Urine Protein Negative (Neg-Trace)
[2021-12-24 12:09] LABS: Appearance Urine Hazy
[2021-12-24 12:12] LABS: Bacteria Urine None Seen (None Seen); Hyaline Casts Urine 0-2 /LPF (0-2); RBC Urine 0-2 /HPF (0-2); WBC Urine 21-50 /HPF (0-5)
[2021-12-24 12:31] LABS: Creatinine Urine 151.02 mg/dL; Microalbum/Creatinine Ratio Ur 21.1 ug/mg cr
== END 2021-12-24 08:55 | disposition home or self-care (01) ==
LOC: HO.LAB 08:54
PROVIDERS: PCP Internal Medicine; Visit Provider Internal Medicine
DX: E11.42 Type 2 diabetes mellitus with diabetic polyneuropathy (principal); N20.0 Calculus of kidney
CPT/HCPCS: 36415; 80048; 80061; 80076; 81001; 81003; 82043; 83036; 85027

== ENCOUNTER 2022-01-19 11:03 | Outpatient (REF) | payer MEDICARE, MEDICAID, SELFPAY ==
--- NOTE | ~2022-01-19 | CT_ITS ---
EXAMINATION: CT ABDOMEN AND PELVIS WITHOUT CONTRAST CLINICAL INFORMATION: Kidney stone COMPARISON: Previous CT of the abdomen and pelvis May 2014 TECHNIQUE: Multidetector volumetric imaging was performed from the superior aspect of the liver through the pubic symphysis. Sagittal and coronal reformatted images were obtained on the technologist's workstation. This CT examination was performed using dose optimization techniques as appropriate, variously including the following: *Automated exposure control *Adjustment of mA and/or kV according to patient size (this includes techniques or standardized protocols for targeted exams where dose is matched to indication/reason for exam; i.e. extremities or head) *Use of iterative reconstruction technique DLP: 672 mGy-cm FINDINGS: LUNG BASES: The visualized lung bases are unremarkable. LIVER, GALLBLADDER, AND BILIARY TREE: The liver is normal in size, shape, and attenuation. No focal hepatic lesion or biliary ductal dilatation is present. The gallbladder has been removed. PANCREAS: There is a small 1 cm cyst tail of the pancreas. This is similar to May 2014 SPLEEN: Unremarkable. ADRENAL GLANDS: Unremarkable. KIDNEYS AND URETERS: The kidneys are normal in size, shape, and attenuation. No hydronephrosis, hydroureter, or calculi seen. No perinephric stranding. BLADDER: Unremarkable. GASTROINTESTINAL TRACT: The small and large bowel are unremarkable. The appendix is not seen. No inflammatory changes in the right lower quadrant. Normal stomach. ABDOMINAL WALL: Small umbilical hernia containing fat. LYMPH NODES: Normal. VASCULAR: Unremarkable. PELVIC VISCERA: The uterus appears to have been removed. No pelvic mass. OSSEOUS STRUCTURES: There are degenerative changes of the spine. Spinal stimulator has been removed. CT/CT abdomen pelvis wo IV con IMPRESSION: No renal stone. Stable small 1 cm cyst in the tail of the pancreas 2014 suggestive of a benign finding. Small umbilical hernia containing fat. Fleischner guidelines were followed.
== END 2022-01-19 11:04 | disposition home or self-care (01) ==
LOC: HO.CT 11:03
PROVIDERS: PCP Internal Medicine; Visit Provider Internal Medicine
DX: N20.0 Calculus of kidney (principal)
CPT/HCPCS: 74176

== ENCOUNTER 2022-02-15 12:12 | Outpatient (REF) | payer MEDICARE, MEDICAID, SELFPAY ==
[2022-02-15 13:42] LABS: Appearance Urine Cloudy; Color Urine Yellow; Glucose Urine UA Negative (Negative); Leukocyte Esterase Urine Large (3+) (Negative); Nitrite Urine Negative (Negative); UMIC TRIGGER UA YES; Urine Blood Trace (Negative); Urine Ketones Negative (Negative); Urine Protein Negative (Neg-Trace)
[2022-02-15 13:47] LABS: Bacteria Urine None Seen (None Seen); Hyaline Casts Urine 0-2 /LPF (0-2); RBC Urine 0-2 /HPF (0-2); Squamous Epithelial Cell Urine 0-2 /HPF (0-2); WBC Urine >50 /HPF (0-5)
== END 2022-02-15 12:13 | disposition home or self-care (01) ==
LOC: HO.LAB 12:12
PROVIDERS: PCP Internal Medicine; Visit Provider Internal Medicine
DX: N39.0 Urinary tract infection, site not specified (principal)
CPT/HCPCS: 81001

== ENCOUNTER 2022-04-12 09:18 | Outpatient (REF) | payer MEDICARE, MEDICAID, SELFPAY ==
[2022-04-12 12:46] LABS: Influenza A PCR NEGATIVE (Negative); Influenza B PCR NEGATIVE (Negative); Resp Syncy Virus RNA Qual PCR NEGATIVE (Negative); SARS COV2 PCR INHOUSE NEGATIVE (Negative)
== END 2022-04-12 09:19 | disposition home or self-care (01) ==
LOC: HO.LAB 09:18
PROVIDERS: Visit Provider Internal Medicine
DX: Z20.822 Contact with and (suspected) exposure to COVID-19 (principal); R09.89 Other specified symptoms and signs involving the circulatory and respiratory systems
CPT/HCPCS: 0241U

== ENCOUNTER 2022-05-11 13:05 | Outpatient (REF) | payer MEDICARE, MEDICAID, SELFPAY | END 2022-05-11 13:06 | disposition home or self-care (01) | LOC: HO.LAB 13:05 | PROVIDERS: PCP Internal Medicine; Visit Provider Physician Assistant Medical | DX: R06.02 Shortness of breath (principal) | CPT/HCPCS: 36415; 84443 ==

== ENCOUNTER 2022-06-28 16:03 | Outpatient (REF) | payer MEDICARE, MEDICAID, SELFPAY ==
[2022-06-28 16:31] LABS: Hematocrit 45.3 % (37.0-47.0); Hemoglobin 14.9 g/dl (12.0-16.0); Mean Corpuscular HGB Conc 32.9 g/dl (31.0-35.0); Mean Corpuscular Hemoglobin 29.2 pg (27.0-33.0); Mean Corpuscular Volume 88.6 fL (80.0-98.0); Mean Platelet Volume 10.5 fL (9.4-12.3); Platelet Count 276 X10*3/uL (160-400); Red Blood Count 5.11 X10*6/uL (4.20-5.50); Red Cell Distribution Width 12.4 % (11.0-16.0); White Blood Count 11.4 X10*3/uL (4.8-10.8)
[2022-06-28 16:38] LABS: Estimated Average Glucose 166 mg/dL; Hemoglobin A1c % 7.4 %
[2022-06-28 17:06] LABS: Alanine Aminotransferase 25 U/L (0-31); Albumin Level 4.3 g/dL (3.5-5.0); Alkaline Phosphatase 93 U/L (39-117); Anion Gap 13 (12-20); Aspartate Amino Transferase 17 U/L (5-31); Bilirubin Direct < 0.2 mg/dL (0.0-0.5); Bilirubin Total 0.4 mg/dL (0.0-1.0); Blood Urea Nitrogen 12 mg/dL (9-16); Calcium 9.1 mg/dL (8.4-10.2); Carbon Dioxide 29 mmol/L (22-29); Chloride 104 mmol/L (96-108); Cholesterol 204 mg/dL; Estimated Glomerular Filt Rate > 60; Glucose Random 169 mg/dL (60-115); HDL Cholesterol 67 mg/dL; LDL Cholesterol Calculated 116 mg/dl; Potassium 4.8 mmol/L (3.3-5.1); Sodium 141 mmol/L (135-145); Total Protein 6.6 g/dL (6.5-8.0); Triglycerides 106 mg/dL
[2022-06-28 17:23] LABS: Thyroid Stimulating Hormone 1.92 uIU/mL (0.32-4.0)
[2022-06-28 17:36] LABS: Appearance Urine Clear; Color Urine Yellow; Glucose Urine UA Negative (Negative); Leukocyte Esterase Urine Small (1+) (Negative); Nitrite Urine Negative (Negative); PH 6.5 (5.0-9.0); Specific Gravity - Urine 1.015 (1.005-1.025); UMIC TRIGGER UA YES; Urine Blood Negative (Negative); Urine Ketones Negative (Negative); Urine Protein Negative (Neg-Trace)
[2022-06-28 17:43] LABS: Bacteria Urine None Seen (None Seen); Hyaline Casts Urine 0-2 /LPF (0-2); RBC Urine 0-2 /HPF (0-2)
[2022-06-28 17:43] LABS: Creatinine Urine 93.62 mg/dL; Microalbum/Creatinine Ratio Ur 28.8 ug/mg cr
== END 2022-06-28 16:04 | disposition home or self-care (01) ==
LOC: HO.LAB 16:03
PROVIDERS: Visit Provider Internal Medicine
DX: E11.42 Type 2 diabetes mellitus with diabetic polyneuropathy (principal)
CPT/HCPCS: 36415; 80048; 80061; 80076; 81001; 82043; 83036; 84443; 85027

== ENCOUNTER → 2022-07-05 14:44 | Outpatient (BNVA) | payer MEDICARE, MEDICAID, SELFPAY | PROVIDERS: PCP Internal Medicine; Visit Provider Nurse Practitioner Family | DX: M47.812 Spondylosis without myelopathy or radiculopathy, cervical region (principal); M54.12 Radiculopathy, cervical region; M47.819 Spondylosis without myelopathy or radiculopathy, site unspecified; M96.1 Postlaminectomy syndrome, not elsewhere classified; M62.838 Other muscle spasm; M54.50 Low back pain, unspecified; M85.80 Other specified disorders of bone density and structure, unspecified site; G89.29 Other chronic pain | CPT/HCPCS: 99212 ==

== ENCOUNTER 2022-07-26 07:26 | Outpatient (REF) | payer MEDICARE, MEDICAID, SELFPAY ==
--- NOTE | ~2022-07-26 | MR_ITS ---
EXAMINATION: MR CERVICAL SPINE WITHOUT CONTRAST CLINICAL INFORMATION: Post laminectomy syndrome. COMPARISON: Cervical spine MRI 12/02/2017. TECHNIQUE: MRI of the cervical spine was obtained using routine sequences without contrast. FINDINGS: There are chronic postoperative changes of an anterior cervical discectomy and fusion with hardware and bridging bone fusing the C5-C7 vertebra. There is also bridging bone that fuses the articular facet joints at C2-C3. There is slight grade 1 anterolisthesis of C7 on T1 that appears to be related to advanced facet degenerative changes at this level. Alignment is otherwise normal. Vertebral heights are preserved. No acute bone marrow signal changes. There is disc desiccation at multiple levels without substantial loss of intervertebral disc height. The cervicomedullary junction is normal. Limited visualization of the posterior fossa reveals no abnormal finding. Occipital condyles and lateral C1 masses are intact. There is advanced degenerative arthrosis of the atlantodental joint. C1-C2 articular facets are unremarkable. At C2-C3 there is no canal or neuroforaminal compromise. At C3-C4 there is a diffusely bulging disc and buckling of ligamenta flava causing moderate canal stenosis. Uncovertebral joint spurring and facet degenerative change causes moderate to severe bilateral neural foramen encroachment. At C4-C5 there is a bulging disc and buckling of the ligamenta flava causing moderate canal stenosis. Uncovertebral joint spurring and facet degenerative change causes moderate to severe bilateral neuroforaminal encroachment. At C5-C6 there is no canal or neuroforaminal compromise. At C6-C7 there is no canal or neuroforaminal compromise. At C7-T1 there is a slightly bulging disc. Advanced facet degenerative change. No canal stenosis. Mild bilateral neuroforaminal encroachment. Visualized soft tissues of the neck are normal. Vascular flow voids are maintained. MR/MR cervical spine wo con IMPRESSION: There are chronic postoperative changes of an anterior cervical discectomy and fusion with hardware and bridging bone fusing the C5-C7 vertebra. There is also bridging bone that fuses the articular facet joints at C2-C3. There is junctional spondylosis resulting in moderate canal stenosis at C3-C4 and C4-C5. There is also moderate to severe neuroforaminal encroachment at each of these 2 levels. No overt cord compression and no abnormal intramedullary signal changes.
== END 2022-07-26 07:27 | disposition home or self-care (01) ==
LOC: HO.MRI 07:26
PROVIDERS: PCP Internal Medicine; Visit Provider Nurse Practitioner Family
DX: M47.812 Spondylosis without myelopathy or radiculopathy, cervical region (principal); M96.1 Postlaminectomy syndrome, not elsewhere classified
CPT/HCPCS: 72141

== ENCOUNTER → 2022-07-27 14:36 | Outpatient (BNVA) | payer MEDICARE, MEDICAID, SELFPAY | PROVIDERS: PCP Internal Medicine; Visit Provider Nurse Practitioner Family | DX: M96.1 Postlaminectomy syndrome, not elsewhere classified (principal); M54.12 Radiculopathy, cervical region; M47.812 Spondylosis without myelopathy or radiculopathy, cervical region; M48.02 Spinal stenosis, cervical region | CPT/HCPCS: Q3014 ==

== ENCOUNTER → 2022-08-20 09:52 | Outpatient (BNVA) | payer MEDICARE, MEDICAID, SELFPAY | PROVIDERS: PCP Nurse Practitioner Family; Visit Provider Physician Assistant | DX: M96.1 Postlaminectomy syndrome, not elsewhere classified (principal); M47.812 Spondylosis without myelopathy or radiculopathy, cervical region; M54.12 Radiculopathy, cervical region; M54.81 Occipital neuralgia; M48.02 Spinal stenosis, cervical region | CPT/HCPCS: 99202; Q3014 ==

== ENCOUNTER 2022-09-03 11:11 | Day surgery (SDC) | payer MEDICARE, MEDICAID, SELFPAY ==
--- NOTE | 2022-09-02 11:00 | HO.ANESPROP2 ---
Documented by User: Amy Schulz NP 09/02/22 11:04 HPI - Anesthesia Eval Consult details Narrative: 66yo F for Bilateral Therapeutic C2-C3-C4 Medial Branch Block, Bilateral Lesser and greater Occipital Nerve Block Follows Dr Barnes for cardiology. Last office visit 08/24/22, htn, venous insufficiency, SOB, DM, Leg swelling stable s/p lumbar medial branch RFA 05/2021 with [facility] Active Problems Active Problems: All Active Problems (Updated 09/01/22 @ 14:22 by Porsche Young, JEAN) Asthma (Acute) Postlaminectomy syndrome, lumbar (Acute) Cervicalgia (Acute) Left lumbar radiculopathy (Acute) Left ear pain (Acute) Facet arthropathy, multilevel (Acute) Chronic sinusitis (Acute) Thoracic back pain (Acute) Post-menopausal (Acute) Adult general medical exam (Acute) Blood in urine (Acute) Mid back pain (Acute) Dysuria (Acute) Pyelonephritis (Acute) Chronic lower back pain (Acute) Renal calculus (Acute) Tinea corporis (Acute) Urinary tract infection (Acute) URI (upper respiratory infection) (Acute) Cervical spondylosis (Acute) Cervical radiculopathy (Acute) Failed back syndrome of cervical spine (Acute) Muscle spasms of neck (Acute) Degenerative cervical spinal stenosis (Acute) Carpal tunnel syndrome (Acute) Bilateral occipital neuralgia (Acute) Osteopenia (Acute) Mild cognitive disorder (Acute) Type 2 diabetes mellitus with diabetic polyneuropathy (Acute) Essential hypertension (Acute) Hyperlipidemia LDL goal <70 (Acute) Obesity, Class I, BMI 30-34.9 (Acute) Endogenous depression (Acute) Restrictive lung disease (Acute) Obesity (BMI 30-39.9) (Acute) Dyspnea on exertion (Acute) Asthma (Acute) Past Medical History Medical History (Updated 09/01/22 @ 14:22 by Porsche Yougn RN) Asthma Bilateral occipital neuralgia Dyspnea on exertion Endogenous depression Essential hypertension Fibromyalgia Hypercholesterolemia Hyperlipidemia LDL goal <70 Lower thoracic back pain Lumbar facet arthropathy Mild cognitive disorder Mitral valve prolapse Obesity (BMI 30-39.9) Obesity, Class I, BMI 30-34.9 Osteoarthritis of left hip Osteopenia Otitis media of left ear Restrictive lung disease RLS (restless legs syndrome) Sacroiliac joint pain Sinusitis Type 2 diabetes mellitus with diabetic polyneuropathy Venous insufficiency Family History Family History Father Lung cancer Diabetes Mother Colon cancer Diabetes Maternal Grandmother Breast cancer Brother S/P triple vessel bypass Diabetes Family/Other Hypertension Hyperlipidemia Family history of problems with anesthesia: No Surgical History Surgical History H/O total cystectomy History of back surgery History of bone graft History of cataract surgery History of cervical spinal surgery History of cholecystectomy History of colonoscopy History of hand surgery History of hysterectomy History of lumbar surgery History of shoulder surgery History of total abdominal hysterectomy and bilateral salpingo-oophorectomy Hx of repair of rotator cuff Status post surgical removal of malignant neoplasm of skin History of Problems with Anesthesia: Yes Social History Social History Household Members: None Housing: House Are you a primary health care sanitary technician to a significant other at home: No Do you presently have visiting nurse or other home services: Yes ([employer] EXPL[employer] 3x week) Alcohol intake: current Alcohol intake frequency: holidays/special occasions only Patient Tobacco Use Status: Never used Tobacco e-Cigarette/Vaping Use: Never Used Second Hand Smoke Exposure: No service: No Current occupational status: disabled Cognitive needs: Yes Hearing needs: Yes (hearing aides) Vision needs: Yes (Reading glasses) Meds Allergies Allergy/AdvReac Type Severity Reaction Status Date / Time duloxetine [Cymbalta] Allergy Intermediate spasms Verified 08/20/22 15:05 oxycodone [From PERCOCET] Allergy Intermediate sensitivity, Verified 08/20/22 15:05 dizziness Exam Exam Date and Time: September 02, 2022 1100 Pertinent Lab Results Pertinent Lab Results: Laboratory Tests 06/28/22 06/28/22 16:19 16:19 WBC 11.4 H Hgb 14.9 Hct 45.3 Plt Count 276 Sodium 141 Potassium 4.8 Chloride 104 Carbon Dioxide 29 BUN 12 Creatinine 0.79 Narrative Narrative: NM misa perf SPECT rest & str 2020 Impression: ? 1.? Myocardial perfusion imaging study shows equivocal for anterolateral and lateral ischemia. 2.? Gated LVEF is 58% 3. Transient ischemic dilatation not present ? EKG is nondiagnostic for ischemia Assessment and Plan Assessment Anesthesia Assessment: Chart Reviewed Final Anesthetic Review Family History of Problems with Anesthesia: No History of Problems with Anesthesia: Yes Documented by User: Renu Braxton MD 09/03/22 12:23 [facility] Past Medical History Medical History (Updated 09/01/22 @ 14:22 by Porsche Young, JEAN) Asthma Bilateral occipital neuralgia Dyspnea on exertion Endogenous depression Essential hypertension Fibromyalgia Hypercholesterolemia Hyperlipidemia LDL goal <70 Lower thoracic back pain Lumbar facet arthropathy Mild cognitive disorder Mitral valve prolapse Obesity (BMI 30-39.9) Obesity, Class I, BMI 30-34.9 Osteoarthritis of left hip Osteopenia Otitis media of left ear Restrictive lung disease RLS (restless legs syndrome) Sacroiliac joint pain Sinusitis Type 2 diabetes mellitus with diabetic polyneuropathy Venous insufficiency Family History Family History Father Lung cancer Diabetes Mother Colon cancer Diabetes Maternal Grandmother Breast cancer Brother S/P triple vessel bypass Diabetes Family/Other Hypertension Hyperlipidemia Surgical History Surgical History H/O total cystectomy History of back surgery History of bone graft History of cataract surgery History of cervical spinal surgery History of cholecystectomy History of colonoscopy History of hand surgery History of hysterectomy History of lumbar surgery History of shoulder surgery History of total abdominal hysterectomy and bilateral salpingo-oophorectomy Hx of repair of rotator cuff Status post surgical removal of malignant neoplasm of skin Social History Social History Household Members: None Housing: House Are you a primary health care sanitary technician to a significant other at home: No Do you presently have visiting nurse or other home services: Yes (W[employer] EXPLOSION 3x week) Alcohol intake: current Alcohol intake frequency: holidays/special occasions only Patient Tobacco Use Status: Never used Tobacco e-Cigarette/Vaping Use: Never Used Second Hand Smoke Exposure: No service: No Current occupational status: disabled Cognitive needs: Yes Hearing needs: Yes (hearing aides) Vision needs: Yes (Reading glasses) Meds Allergies Allergy/AdvReac Type Severity Reaction Status Date / Time duloxetine [Cymbalta] Allergy Intermediate spasms Verified 08/20/22 15:05 oxycodone [From PERCOCET] Allergy Intermediate sensitivity, Verified 08/20/22 15:05 dizziness Exam Airway Mallampati Class: II TM Dist: >3cm Neck ROM: Full Denture: Upper Heart: rrr Lungs: cta Assessment and Plan Assessment Anesthesia Assessment: Anesthesia Plan Discussed Final Anesthetic Review NPO: Yes ASA Class: III Final Preanesthetic Review: No Changes in Pt Med Stat, Meds/Allgs Chart Reviewed, Consent Obtained/Reviewed and Anes Risks/Benef Reviewed Patient Risk: Low Procedure Risk: Intermediate Anesthetic Plan Anesthetic Plan: MAC: Disposition: Standard PACU
--- NOTE | ~2022-09-03 | FL_ITS ---
EXAMINATION: XR FLUOROSCOPY WITH IMAGES CLINICAL INFORMATION: Bilateral cervical MBB. Pain management. COMPARISON: MR cervical spine 07/26/2022 TECHNIQUE: Fluoroscopy Supervised By: Dr. Olvin Quijano. Fluoroscopy Time: 0.8 minutes. Cumulative Dose: 8.62 mGy. DAP: 2.35 Gycm2. Images: 6. FINDINGS: There are spinal needles overlying the bilateral lateral masses cervical spine approximately C2, C3, C4. There is contrast in the paraspinal soft tissues and nerve sheaths. No visible vascular communication. FL/FL guidance in OR IMPRESSION: Fluoroscopy for pain management procedures.
[2022-09-03 11:59] VITALS: BMI 33.9
[2022-09-03 12:02] VITALS: BP 187/107; PULSE 71; RESP 18; TEMP 36.3; O2SAT 96
--- NOTE | 2022-09-03 12:09 | MHC.SHP ---
Pre-Procedural Eval Section A Date of Service: 09/03/22 The patient is an INPATIENT: No Changes since office visit: Yes Patient answered all questions The History & Physical has been completed within 30 days and I have reviewed it.: No Section B Chief Complaint: Occipital neuralgia,Spondylosis without myelopathy Details of Present Illness: as above Relevant Family History (Specify if Yes): No Relevant Social History: None Present Medications: see Short Stay Collaborative assessment Medical History: No relevant PMH History of Previous Operations: No relevant previous surgery Allergies: Allergies Allergy/AdvReac Type Severity Reaction Status Date / Time duloxetine [Cymbalta] Allergy Intermediate spasms Verified 08/20/22 15:05 oxycodone [From PERCOCET] Allergy Intermediate sensitivity, Verified 08/20/22 15:05 dizziness Review of Systems Sugical H&P ROS: Negative: Constitution, Cardiovascular, Respiratory, Neurological, Psychiatric, Hem-Onc, Allergic/Immunologic, Gastrointestinal, Genitourinary, Musculoskeletal, Integumentary, Endocrine and Eyes/Ears/Nose/Throat Exam Surgical H&P Exam: Normal: HEENT, Normal: Heart, Normal: Lungs, Normal: Extremities, Normal: Abdomen, Normal: Skin and Normal: Neurological Plan Diagnosis/Plan: Unchanged I have reviewed the history and physical and performed a pertinent physical examination on my patient. No changes have occurred unless specified. Time Spent With Patient Time: Total time managing care of this patient today ____ minutes.
[2022-09-03 12:17] LABS: Glucose, Whole Blood 103 mg/dL (60-115)
[2022-09-03] MEDS: Lactated Ringers 1,000 ML 100 ML IVCONT (12:31)
[2022-09-03 13:25] VITALS: BP 183/88; PULSE 69; RESP 18; TEMP 36.9; O2SAT 95
[2022-09-03 13:40] VITALS: BP 183/96; PULSE 66; RESP 18; TEMP 36.9; O2SAT 95
--- NOTE | 2022-09-03 14:15 | PM.OP ---
Brief Operative Note Date of Service: 09/03/22 Pre-op diagnosis: occipital neuralgia, cpondylosis cervical spne. Post-op diagnosis: same Procedure: C2-C3 C4 bilateral medial branch block therapeutic, bilateral occipital greater and lesser nerves block therapeutic. Implants: None Surgeon: Olvin Quijano MD Anesthesia: MAC Was an Personal Property Assessor used for this Procedure?: No Estimated blood loss (mL): 0 Condition: stable Disposition: PACU
--- NOTE | 2022-09-03 14:17 | W.PM.OPN ---
Operative Note Operative Note Date of Service: 09/03/22 Narrative: bilateral medial branch block C2-C3 C4 therapeutic as well as bilateral greater and lesser occipital nerve block therapeutic. Time-out was performed where all risks and benefits were explained to the patient. Bleeding infection , peripheral nerve damage were discussed, benefits of the procedure were discussed as well. The patient came to the operating room she was positioned prone on the operating table. [place] [employer] monitors were applied and patient was minimally sedated. She was able to stay in contact and follow the commands. The posterior upper neck was prepped with ChloraPrep and draped with sterile utility towels. C-arm was brought over the operating field and sq picture of the C2-C3 C4 vertebras was delineated on the screen. Lateral masses of the above-mentioned vertebra is were located and the waistline of all lateral masses bilaterally were chosen as the needle targets. The projection of the targets to the skin were injected with lidocaine 2% mixed with ropivacaine 0.5% 1:1. after that 22 gauge 3-1/2 inch needle were driven toward the targets in tunnel vision fashion. When needle gently contacted the bone small amount of the contrast was injected into the needles demonstrating no intravascular, no intrathecal spread of the contrast. After that injection of 1 cc of ropivacaine 0.5% mixed with Kenalog was performed into the area total dose of Kenalog was 40 mg divided between 6 sites of the injections. After that the sterile Band-Aids were applied and drapes were removed. Attention was redirected to occipital area where copious ChloraPrep was used to prep the occipital area after that nuchal ridge was palpated under the skin and the distance between center of the nuchal ridge and mastoid process on the right as well as on the left was detected and divided by half. those points were presumably locations of greater occipital nerve bilaterally. After that injection into that point bilaterally was performed using 25 gaugens. 1/2 inch needle in fan-like fashion bilaterally with ropivacaine 0.5% mixed with trace amount of Kenalog. after that attention was concentrated on the nuchal ridge bilaterally between the needle insertions for the greater occipital nerve and bilateral mastoid was thus. at those points again 25 gauge 1/2 inch needle was used to insert toward the presumable location of lesser occipital nerve bilateral in fan-like fashion. After that the patient was transferred on the stretcher supine and transferred to PACU where she recovered uneventfully. She went home without immediate complications.
== END 2022-09-03 14:30 | disposition home or self-care (01) ==
PROVIDERS: PCP Internal Medicine; Visit Provider Anesthesiology
PROC: (CPT 64490; principal; 2022-09-03 12:30)
DX: M47.22 Other spondylosis with radiculopathy, cervical region (principal); M54.81 Occipital neuralgia; M48.02 Spinal stenosis, cervical region; M96.1 Postlaminectomy syndrome, not elsewhere classified; E11.9 Type 2 diabetes mellitus without complications; I10 Essential (primary) hypertension; J45.909 Unspecified asthma, uncomplicated; Z88.5 Allergy status to narcotic agent
CPT/HCPCS: 64490; 64491; 64492; 64405; 64450; 82947; J2250; J3301; Q9965; Q9967

== ENCOUNTER → 2022-10-04 15:01 | Outpatient (BNVA) | payer MEDICARE, MEDICAID, SELFPAY | PROVIDERS: PCP Internal Medicine; Visit Provider Anesthesiology | DX: M96.1 Postlaminectomy syndrome, not elsewhere classified (principal); M47.812 Spondylosis without myelopathy or radiculopathy, cervical region; M54.12 Radiculopathy, cervical region; M54.81 Occipital neuralgia; M48.02 Spinal stenosis, cervical region | CPT/HCPCS: 99212 ==

== ENCOUNTER 2022-10-18 09:00 | Outpatient (RCR) | payer MEDICARE, MEDICAID, SELFPAY ==
--- NOTE | 2022-09-13 10:39 | MHC.PT.EP ---
[facility] [place] Office [place] Office [place] Office [address]uc[address] Banerjee [address] [phone] F: [phone] F: [phone] F: [phone] F: [phone] Physical Therapy Plan of Care Date of Evaluation: Date of Surgery: history of fusion Diagnosis: cervical radiculopathy Assessment: Patient is a 66 year old R handed female who presents with s/s consistent with cervical radiculopathy, neck pain. She does not work but does like to keep up with her 10 year old grandchild. Patient past medical history includes cervical fusion, back surgery and multiple other surgeries. Current impairments include pain, posture, ROM, strength, activity tolerance and functional mobility. Functional limitations include decreased ability to turn head, drive, lift, carry, push, pull, and sleep. Patient is motivated with good rehab potential. Skilled PT will address impairments and functional limitations in order to achieve goals. Frequency and Duration: The patient will be seen 2x/week for 5 weeks Short Term Goals: I with HEP - 2 weeks AROM rotation 45 b/l - 3 weeks Communication And Outreach Manager Goals: AROM rotation 50 b/l - 5 weeks flex/ext arc 45 - 5 weeks NPDI 20% or better - 5 weeks Treatment Plan: Modalities to reduce pain, spasms and effusion. Manual therapy to restore motion and function. Therapeutic exercise to improve strength and flexibility. Neuromuscular re-education for posture and balance. Therapeutic activities to return to functional activities of daily living. Electronically signed by: Chauncey Shelton PT Please sign and return to therapist. Thank you for your referral.
--- NOTE | 2023-02-07 10:42 | MHC.PT.EP ---
[facility] [place] Office [place] Office [place] Office [address] Rhett Banerjee [address] [phone] F: [phone] F: [phone] F: [phone] F: [phone] Physical Therapy Plan of Care Date of Evaluation: 09/13/22 Date of Surgery: history of fusion Diagnosis: cervical radiculopathy Assessment: Patient is a 66 year old R handed female who presents with s/s consistent with cervical radiculopathy, neck pain. She does not work but does like to keep up with her 10 year old grandchild. Patient past medical history includes cervical fusion, back surgery and multiple other surgeries. Current impairments include pain, posture, ROM, strength, activity tolerance and functional mobility. Functional limitations include decreased ability to turn head, drive, lift, carry, push, pull, and sleep. Patient is motivated with good rehab potential. Skilled PT will address impairments and functional limitations in order to achieve goals. Frequency and Duration: The patient will be seen 2x/week for 5 weeks Short Term Goals: I with HEP - 2 weeks AROM rotation 45 b/l - 3 weeks Manager Grocery Goals: AROM rotation 50 b/l - 5 weeks flex/ext arc 45 - 5 weeks NPDI 20% or better - 5 weeks Treatment Plan: Modalities to reduce pain, spasms and effusion. Manual therapy to restore motion and function. Therapeutic exercise to improve strength and flexibility. Neuromuscular re-education for posture and balance. Therapeutic activities to return to functional activities of daily living. Electronically signed by: Chauncey Shelton, PT Please sign and return to therapist. Thank you for your referral.
== END 2023-02-07 10:43 | disposition home or self-care (01) ==
LOC: HO.PTCHIC 09:00
PROVIDERS: PCP Nurse Practitioner Family; Visit Provider Physician Assistant
DX: M54.12 Radiculopathy, cervical region (principal)
CPT/HCPCS: 97110; 97140; 97163

== ENCOUNTER 2022-10-21 14:08 | Outpatient (REF) | payer MEDICARE, MEDICAID, SELFPAY ==
--- NOTE | 2022-10-21 14:15 | EMG_ITS ---
Please see scanned EMG / Nerve Conduction Report. MTDD
== END 2022-10-21 14:09 | disposition home or self-care (01) ==
LOC: HO.NEURO 14:08
PROVIDERS: PCP Internal Medicine; Visit Provider Physician Assistant
DX: R20.0 Anesthesia of skin (principal); R53.1 Weakness; G56.00 Carpal tunnel syndrome, unspecified upper limb
CPT/HCPCS: 95885; 95913

== ENCOUNTER 2022-11-23 13:18 | Outpatient (AMB) | payer MEDICARE, MEDICAID, SELFPAY ==
--- NOTE | 2022-11-23 14:13 | A.SPINEOV_ITS ---
Intake Intake Visit Reasons: EMG f/u Intake Note: Mrs. Nair is here for her EMG results. Allergies duloxetine [Cymbalta] Allergy (Intermediate, Verified 10/04/22 15:15) spasms oxycodone [From PERCOCET] Allergy (Intermediate, Verified 10/04/22 15:15) sensitivity, dizziness Assessment & Plan Assessment & Plan (1) Carpal tunnel syndrome: Code(s): G56.00 - Carpal tunnel syndrome, unspecified upper limb Plan Mrs. Nair is here today in follow-up. I saw her previously for degenerative disc disease of the cervical spine with C4-5 moderate stenosis. She has been treating her symptoms nonsurgically with injections etc.. During the course of our visit I discovered part of the tingling in her hand was coming from what I suspected was carpal tunnel syndrome. EMG confirms this. She is back today to discuss the risks and benefits of surgery. We discussed carpal tunnel release of the right hand. I quoted 80-90% success rate for improvement of the tingling and numbness. We also discussed recovery, activity guidelines etc.. I have put her on for surgery on January 18. Dr. Wylie met with the patient and also discussed the surgery at length. Total amount of time spent in this visit was 20 minutes in discussion of symptoms, he EMG results and subsequent plan of care Eduard Wylie MD,PhD [facility] Coding Level of Care Code Est Pt Level 3 (08974) Diagnoses Carpal tunnel syndrome G56.00
== END 2022-11-23 14:50 | disposition home or self-care (01) ==
PROVIDERS: PCP Internal Medicine; Visit Provider Physician Assistant
DX: G56.00 Carpal tunnel syndrome, unspecified upper limb (principal)
CPT/HCPCS: 99213

== ENCOUNTER → 2022-11-23 13:18 | Outpatient (BNVA) | payer MEDICARE, MEDICAID, SELFPAY | PROVIDERS: PCP Internal Medicine; Visit Provider Physician Assistant | DX: G56.01 Carpal tunnel syndrome, right upper limb (principal) | CPT/HCPCS: 99212 ==

== ENCOUNTER 2022-11-24 10:26 | Outpatient (AMB) | payer MEDICARE, MEDICAID, SELFPAY ==
--- NOTE | 2022-11-24 10:27 | A.OFFPC_ITS ---
Vital Signs 11/24/22 10:28 Height 5 ft 6 in Weight 219 lb BMI 35.3 BP 126/78 Blood Pressure Location Lt brachial Position Sitting Pulse 76 Pulse Source Pulse Oximeter Temp Source Skin Pulse Oximetry (%) 97 Oxygen Delivery Method Room Air Intake Visit Reasons: Transfer Care from Dr. Joshua ROGERS) Smoke Jumper Supervisor Required: No Allergies duloxetine [Cymbalta] Allergy (Intermediate, Verified 11/24/22 10:41) spasms oxycodone [From PERCOCET] Allergy (Intermediate, Verified 11/24/22 10:41) sensitivity, dizziness Medication List - Last Reconciled 11/24/22 by Tenisha Harris, LABOR RELATIONS DIRECTOR albuterol sulfate 90 mcg/actuation 2 puffs inhalation Q4-6H PRN amlodipine 5 mg PO DAILY atorvastatin 20 mg PO BEDTIME blood sugar diagnostic (FreeStyle Lite Strips) As directed three times a day blood-glucose meter (FreeStyle Lite Meter kit) As directed to test bg 2 times a day diclofenac sodium 1% (Voltaren Arthritis Pain) 4 grams topical QID 30 days dulaglutide (Trulicity) 0.75 mg (0.5 mL) subcut QWEEK escitalopram oxalate 10 mg PO BEDTIME fluticasone propionate 50 mcg/actuation (Flonase Allergy Relief) 1 spray intranasal DAILY gabapentin 300 mg PO TID 90 days insulin degludec (Tresiba FlexTouch U-200 insulin) 50 units (0.25 mL) subcut BED TIME ketoconazole 2% 1 appl topical DAILY lancets As directed lisinopril 20 mg PO DAILY meloxicam 15 mg PO DAILY miscellaneous medical supply 1 ea miscellaneous DAILY 12 months pen needle, diabetic (BD Tayler 2nd Gen Pen Needle) USE WITH BASAGLAR tizanidine 4 mg PO BID PRN Tobacco use date assessed: 11/24/22 Fall risk assessment: No Falls in past year Last assessed Fall Risk: 11/24/22 Dental Screening Dental Screen Date: 11/24/22 Did you have a dental visit in the last 12 months?: Yes Did you have a dental problem in the last 6 months where you did not have access to dental care?: No Was dental information given to patient?: Patient has dentist HPI Transfer Care from Dr. Joshua ROGERS) HPI Details Patient is a 66-year-old female who presents today to transfer care from Dr. Holbrook. Medical history significant for asthma, obesity- interested in dietitian referral, hyperlipidemia, hypertension - followed by Cardiology Dr. Barnes, diabetes type 2, osteopenia, carpal tunnel syndrome- right hand-plan for carpal tunnel surgery with [facility]; failed back syndrome of cervical spine-followed by [facility], cervicalgia among others. Patient reports ongoing multiple joint pains, she reports pains in her elbows, wrists, neck, knees, and ankles for long time now. She reports that gabapentin does not help her much with her pain, she will follow-up with pain management in regards to this. She reports that diclofenac cream somewhat helps knees pain. Patient denies shortness of breath or chest pain. Patient is due for blood work. Patient reports left ear ringing sensation, this have resolved after having neck injection although came back. [facility] Medical History (Updated 11/24/22 @ 11:28 by SAMRA Berger) Asthma Bilateral occipital neuralgia Dyspnea on exertion Endogenous depression Essential hypertension Fibromyalgia Hypercholesterolemia Hyperlipidemia LDL goal <70 Lower thoracic back pain Lumbar facet arthropathy Mild cognitive disorder Mitral valve prolapse Obesity (BMI 30-39.9) Obesity, Class I, BMI 30-34.9 Osteoarthritis of left hip Osteopenia Otitis media of left ear Restrictive lung disease RLS (restless legs syndrome) Sacroiliac joint pain Sinusitis Type 2 diabetes mellitus with diabetic polyneuropathy URI (upper respiratory infection) Urinary tract infection Venous insufficiency Surgical History H/O total cystectomy History of back surgery History of bone graft History of cataract surgery History of cervical spinal surgery History of cholecystectomy History of colonoscopy History of hand surgery History of hysterectomy History of lumbar surgery History of shoulder surgery History of total abdominal hysterectomy and bilateral salpingo-oophorectomy Hx of repair of rotator cuff Status post surgical removal of malignant neoplasm of skin Family History Father Lung cancer Diabetes Mother Colon cancer Diabetes Maternal Grandmother Breast cancer Brother S/P triple vessel bypass Diabetes Family/Other Hypertension Hyperlipidemia Social History Household Members: None Housing: House Are you a primary home care scheduler to a significant other at home: No Do you presently have visiting nurse or other home services: Yes (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 1. Little interest or pleasure in doing things: not at all 2. Feeling down, depressed, or hopeless: several days 3. Trouble falling or staying asleep, or sleeping too much: several days 4. Feeling tired or having little energy: several days 5. Poor appetite or overeating: several days 6. Feeling bad about yourself - or that you are a failure or have let yourself or your family down: more than half the days 7. Trouble concentrating on things, such as reading the newspaper or watching television: several days 8. Moving or speaking so slowly that other people could have noticed. Or the opposite - being so fidgety or restless that you have been moving around a lot more than usual: several days 9. Thoughts that you would be better off or of hurting yourself in some way: not at all Total score: 8 Depression Screening Interpretation: Negative 47011 - PHQ-9 Billing: Yes Source: Developed by Drs. Maximino Snow, Elinor Turner, Shaggy Olguin and colleagues, with an educational nasir from [employer]. Thrive Questionnaire Date Thrive assessed: 06/28/22 AUDIT C Alcohol Use Questionnaire (AUDIT-C) 1. How often do you have a drink containing alcohol?: Never 3. How often do you have six or more drinks on one occasion?: Never Total Score: 0 Score Reviewed/Action Taken: No MARLENI-7 AMB Questionnaire MARLENI-7 Date MARLENI - 7 assessed: 06/28/22 Feeling nervous, anxious, or on edge: 2 = More than half the days Not being able to stop or control worryin = Nearly every day Worrying too much about different things: 3 = Nearly every day Trouble relaxin = Nearly every day Being so restless that it is hard to sit still: 3 = Nearly every day Becoming easily annoyed or irritable: 2 = More than half the days Feeling afraid as if something awful might happen: 2 = More than half the days Total MARLENI-7 score (0-4 normal; 5-9 mild; 10-14 moderate; 15-21 severe): 18 Source: Developed by Drs. Maximino Snow, Elinor Turner, Shaggy Olguin and colleagues, with an educational nasir from [employer]. MARLENI-7 Assessment Billing MARLENI-7 Assessment Tool: MARLENI-7 Assessment 00550 Review of Systems Const Denies body aches, Denies chills, Denies fever(s) and Denies headache(s) Eyes Denies change in vision ENT Denies dizziness, Denies otalgia, Denies headache(s), Denies nasal discharge, Denies sinus pain and Denies sore throat Card Denies chest pain, Denies edema, Denies lightheadedness and Denies dyspnea Resp Denies cough, Denies dyspnea and Denies wheezing GI Denies constipation, Denies diarrhea, Denies nausea and Denies vomiting Denies dysuria Musc Reports as per HPI, Reports back pain, Denies myalgias and Reports arthralgias Skin/Breast Denies rash Neuro Denies dizziness and Denies headache(s) Aller/Immun Denies wheezing Physical exam (Primary Care) Vital Signs: Last Vital Signs Pulse 76 11/24/22 10:28 BP 126/78 11/24/22 10:28 Pulse Ox 97 11/24/22 10:28 Oxygen Delivery Method Room Air 11/24/22 10:28 BMI result Body Mass Index 35.3 Tobacco/Smoking Status: Tobacco use Status Tobacco use date assessed 11/24/22 11/24/22 10:29 Patient Tobacco Use Status Never used Tobacco 11/24/22 10:29 e-Cigarette/Vaping Use Never Used 11/24/22 10:29 PHQ-9: PHQ-9 Score PHQ-9: Total score 8 11/24/22 10:40 Depression Screening Interpretation: Negative Thrive Assessment: Date of Thrive Assessment Date Thrive assessed 06/28/22 11/24/22 10:29 Const General: cooperative and no acute distress Orientation/consciousness: patient oriented x3 HENMT Head: Yes normocephalic and Yes atraumatic Face and sinus: Yes sinuses nontender Mouth: oropharynx normal and moist mucous membranes Throat: Yes posterior oropharynx normal Eyes General: appearance normal, both eyes and all related structures Pupils: Equal, round and reactive pupils present EOM: EOMs intact bilaterally Neck Neck: Yes normal visual inspection, Yes full ROM and Yes no lymphadenopathy Thyroid: Thyroid normal Resp Effort & Inspection: normal respiratory effort and able to speak in complete sentences Auscultation: clear to auscultation bilaterally, no crackles, no rales, no rhonchi and no wheezes Cardio Rate: regular rate Rhythm: regular rhythm Heart sounds: S1 normal heart sound present, S2 normal heart sound present and no murmurs GI Palpation (GI): Soft to palpation, not firm, nontender, no guarding, not rigid and no hepatosplenomegaly Auscultation: normal bowel sounds Skin General skin exam: no rashes or lesions noted Neuro General: patient oriented x3 Cranial nerves: Yes Equal, round and reactive pupils present Gait exam (Neuro): Normal gait present Extrem General: Yes full ROM and No edema Results AMB Hemoglobin A1c AMB Hemoglobin A1c 6.1 % Last Edit by BRETT Razo on 11/24/22 10:41 Results Reviewed Results Reviewed: Laboratory Last Values Hgb A1c (Clinic) 6.1 % (4.0-6.0) H 11/24/22 10:36 Assessment and Plan Assessment & Plan (1) Asthma: Code(s): J45.909 - Unspecified asthma, uncomplicated Plan: Stable Continue albuterol inhaler p.r.n. (2) Cervicalgia: Code(s): M54.2 - Cervicalgia Plan: Continue to follow-up with [facility] Patient is on gabapentin, reports history cervical spine injections in the past (3) Type 2 diabetes mellitus with diabetic polyneuropathy: Code(s): E11.42 - Type 2 diabetes mellitus with diabetic polyneuropathy Qualifiers: Diabetes mellitus superintendent container terminal insulin use: without custodial use Qualified Code(s): E11.42 - Type 2 diabetes mellitus with diabetic polyneuropathy Plan: A1c 6.1 today Diabetic eye exam 05/2022 Continue Martin Low-carbohydrate diet Dietitian referral (4) Essential hypertension: Code(s): I10 - Essential (primary) hypertension Plan: Goal BP equal or less than 140/90 Continue amlodipine and lisinopril Low-sodium diet and weight loss Continue to follow-up with cardiology Dr. Barnes (5) Hyperlipidemia LDL goal <70: Code(s): E78.5 - Hyperlipidemia, unspecified Plan: Continue atorvastatin 20 mg at bedtime Low-cholesterol diet (6) Obesity (BMI 30-39.9): Code(s): E66.9 - Obesity, unspecified Plan: Healthy food choices and exercise as tolerated Dietitian referral (7) Anxiety: Code(s): F41.9 - Anxiety disorder, unspecified Plan: Stable with escitalopram at bedtime Plan Follow-up in 3 months or sooner as needed Orders: Orders Vitamin B12 and Folate Today E11.42 - Type 2 diabetes mellitus with diabetic polyneuropathy Comprehensive [place]. Panel Fast Today E11.42 - Type 2 diabetes mellitus with diabetic polyneuropathy Lipid Panel Today E78.5 - Hyperlipidemia, unspecified Rheumatoid Factor Today M54.2 - Cervicalgia TSH reflex Free T4 Today E11.42 - Type 2 diabetes mellitus with diabetic polyneuropathy Vitamin D 25-OH Total Today E11.42 - Type 2 diabetes mellitus with diabetic polyneuropathy Microalbumin, Random (w Creat) Today E11.42 - Type 2 diabetes mellitus with diabetic polyneuropathy Complete Blood Count Auto Diff Today E11.42 - Type 2 diabetes mellitus with diabetic polyneuropathy DEBBIE Reflex Titer and Pattern Today M54.2 - Cervicalgia AMB Hemoglobin A1c Today E11.42 - Type 2 diabetes mellitus with diabetic polyneuropathy Referrals Nutrition/Dietitian Referral E11.42 - Type 2 diabetes mellitus with diabetic polyneuropathy, E66.9 - Obesity, unspecified Medications: Refilled blood sugar diagnostic (FreeStyle Lite Strips) As directed three times a day 100 ea 11RF E11.42 - Type 2 diabetes mellitus with diabetic polyneuropathy diclofenac sodium 1% (Voltaren Arthritis Pain) Apply 1-3 grams (pumps) to the affected area 3-4 times daily. 4 grams topical QID 30 days 180 grams 1RF pain M47.812 - Spondylosis without myelopathy or radiculopathy, cervical region, M47.819 - Spondylosis without myelopathy or radiculopathy, site unspecified, M54.12 - Radiculopathy, cervical region, M62.838 - Other muscle spasm, M96.1 - Postlaminectomy syndrome, not elsewhere classified Coding Level of Care Code Est Pt Level 4 (94543) Diagnoses Asthma J45.909 Cervicalgia M54.2 Type 2 diabetes mellitus with diabetic polyneuropathy E11.42 Diabetes mellitus custodial insulin use: without superintendent container terminal use Essential hypertension I10 Hyperlipidemia LDL goal <70 E78.5 Obesity (BMI 30-39.9) E66.9 Anxiety F41.9 Additional Codes MARLENI-7 Assessment Billing - MARLENI-7 Assessment Tool: MARLENI-7 Assessment [id number] ([id number])
[2022-11-24 10:28] VITALS: BP 126/78; PULSE 76; O2SAT 97; BMI 35.3
== END 2022-11-24 11:03 | disposition home or self-care (01) ==
PROVIDERS: Visit Provider Nurse Practitioner Family
DX: J45.909 Unspecified asthma, uncomplicated (principal); E11.42 Type 2 diabetes mellitus with diabetic polyneuropathy; I10 Essential (primary) hypertension; F41.9 Anxiety disorder, unspecified; M54.2 Cervicalgia; E78.5 Hyperlipidemia, unspecified; E66.9 Obesity, unspecified
CPT/HCPCS: 83036; 99214

== ENCOUNTER 2022-11-29 08:45 | Outpatient (AMB) | payer MEDICARE, MEDICAID, SELFPAY ==
[2022-11-29 08:49] VITALS: BMI 35.9
--- NOTE | 2022-11-29 08:49 | A.OFFVIS_ITS ---
Intake VS Expanded 11/29/22 08:49 Height 5 ft 6 in Weight 222 lb 7.143 oz BMI 35.9 Intake Visit Reasons: DM & Obesity Allergies duloxetine [Cymbalta] Allergy (Intermediate, Verified 11/29/22 10:33) spasms oxycodone [From PERCOCET] Allergy (Intermediate, Verified 11/29/22 10:33) sensitivity, dizziness HPI Nutrition Presentation Details Pt presents for MNT for T2DM. Pt was last seen for nutrition in 2020 Typical meal intake 8-9 am B: 1/2 [place] muffin and peanut butter, water or 1 egg no bread, water L: [place]: mari/ham/cheese/ lettuce/tomato, 1% milk or water , whole wheat or white bread S: chicken or pork or hamburger steak , rice or potato or pasta and vegetables zucchini , carrots , water food frequency fried foods: 0-1x/wk juice drinks: 0-1/d fruits : 0-1/d vegetables 2-3 serving/d protein foods : 8-10 oz/d starches > 15 serving/d fluids: 12 -16 oz/d Pt reports currently on Trulicity 0.75 mg and Tresiba 50 units/d, Reports BG ranging from 80-120s Reports gaining weight, 9 lbs in 2-3 months NPK-Ohhanjt-Nc.Jeor Equation Height 5 ft 6 in Weight 222 lb Resting Metabolic Rate 1558.16 Calculated Activity Level Sedentary Calories Needed to Maintain Weight 1869.79 Diagnosis Nutrition problem #1 excessive energy intake As related to (etiology) #1 diagnosis As evidenced by (sign/symptom) #1 high BMI (35.9 on 11/29/22 and reports of wt gain 9 lbs in 2-3 months) Most Recent Diabetes Results: No Data to Display [facility] Medical History Asthma Bilateral occipital neuralgia Dyspnea on exertion Endogenous depression Essential hypertension Fibromyalgia Hypercholesterolemia Hyperlipidemia LDL goal <70 Lower thoracic back pain Lumbar facet arthropathy Mild cognitive disorder Mitral valve prolapse Obesity (BMI 30-39.9) Obesity, Class I, BMI 30-34.9 Osteoarthritis of left hip Osteopenia Otitis media of left ear Restrictive lung disease RLS (restless legs syndrome) Sacroiliac joint pain Sinusitis Type 2 diabetes mellitus with diabetic polyneuropathy URI (upper respiratory infection) Urinary tract infection Venous insufficiency Surgical History H/O total cystectomy History of back surgery History of bone graft History of cataract surgery History of cervical spinal surgery History of cholecystectomy History of colonoscopy History of hand surgery History of hysterectomy History of lumbar surgery History of shoulder surgery History of total abdominal hysterectomy and bilateral salpingo-oophorectomy Hx of repair of rotator cuff Status post surgical removal of malignant neoplasm of skin Family History Father Lung cancer Diabetes Mother Colon cancer Diabetes Maternal Grandmother Breast cancer Brother S/P triple vessel bypass Diabetes Family/Other Hypertension Hyperlipidemia Social History Household Members: None Housing: House Are you a primary occasional caregiver to a significant other at home: No Do you presently have visiting nurse or other home services: Yes (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) Alcohol intake: current Alcohol intake frequency: holidays/special occasions only Patient Tobacco Use Status: Never used Tobacco e-Cigarette/Vaping Use: Never Used Second Hand Smoke Exposure: No service: No Current occupational status: disabled Cognitive needs: Yes Hearing needs: Yes (hearing aides) Vision needs: Yes (Reading glasses) Assessment & Plan Assessment & Plan (1) Type 2 diabetes mellitus with diabetic polyneuropathy: Code(s): E11.42 - Type 2 diabetes mellitus with diabetic polyneuropathy Qualifiers: Diabetes mellitus correction insulin use: without parts counterman use Qualified Code(s): E11.42 - Type 2 diabetes mellitus with diabetic polyneuropathy Plan: wt: 101 Est kcal needs as per MSJ: 1800 (40% carb, 30% protein/fat) Est fluid needs as per 25-30 ml/d: 2522 Est prot per day as per 1 g/kg bw: 101g Recommend fiber intake : 8-10 g per day and gradually increase to 25-28 g per day for women and 35-38 g for men or as tolerated Recommend sodium intake per day : less than 2000 mg Educated patient on: ( R = reviewed V = verbalizes understanding N/R = needs review N/A = not applicable * Food sources of carbohydrate, adequate serving sizes and its role in various health conditions: R V * Differences between complex carbohydrates a simple carbohydrates, role of fiber in diet: R V * Differences between types of fats and role in diet (mono on saturated fat fatty acids, saturated fatty acids, trans fats): R * Food sources of sodium in salt and healthy modifications for heart health in kidney health: R * Vitamins and minerals: R * Healthy plate method concept: R V * Physical activity: Benefits a precaution: R * Hypoglycemia protocol (rule of 15): R V * Dietary prevention of Hyperglycemia: NR Patient Instructions: Check blood sugar if having symptoms of hypoglycemia, treat following rule of 5 and contact your doctor to notifiy low blood sugar reactions for further assessment Reduce on fat intake from pastries, fried foods: use air fryer, remove skins, reduce on amount of sauces/gravies and add vinegars, herbs spices for flavor instead make a routine of having a fruit instead of pastries at dinner time Coding Level of Care Code Nutr Indiv Intake (51799) Diagnoses Type 2 diabetes mellitus with diabetic polyneuropathy E11.42 Diabetes mellitus correction insulin use: without parts counterman use Time Spent (min) 30
[2022-12-06 08:33] VITALS: BMI 35.8
== END 2022-11-29 10:04 | disposition home or self-care (01) ==
PROVIDERS: PCP Internal Medicine; Visit Provider Dietitian, Registered
DX: E11.42 Type 2 diabetes mellitus with diabetic polyneuropathy (principal)

== ENCOUNTER → 2022-11-29 08:45 | Outpatient (BNVA) | payer MEDICARE, MEDICAID, SELFPAY | PROVIDERS: PCP Internal Medicine; Visit Provider Dietitian, Registered | DX: M47.812 Spondylosis without myelopathy or radiculopathy, cervical region (principal); M96.1 Postlaminectomy syndrome, not elsewhere classified; M54.2 Cervicalgia; M62.838 Other muscle spasm; M54.81 Occipital neuralgia; M48.02 Spinal stenosis, cervical region; E11.42 Type 2 diabetes mellitus with diabetic polyneuropathy | CPT/HCPCS: 97802; 99212 ==

== ENCOUNTER 2022-11-29 10:25 | Outpatient (AMB) | payer MEDICARE, MEDICAID, SELFPAY ==
--- NOTE | 2022-11-29 10:28 | MHC.OFFVIS ---
Intake Vital Signs 11/29/22 10:33 Height 5 ft 6 in Weight 225 lb BMI 36.3 BP 176/96 H Blood Pressure Location Rt brachial Position Sitting Pulse 69 Pulse Source Pulse Oximeter Pulse Oximetry (%) 98 Oxygen Delivery Method Room Air Intake Visit Reasons: Follow up/Neck pain Intake Note: Pain today 12/02 Media Job Titles Required: No Accompanied by: Self / Same As Patient Allergies duloxetine [Cymbalta] Allergy (Intermediate, Verified 11/29/22 10:33) spasms oxycodone [From PERCOCET] Allergy (Intermediate, Verified 11/29/22 10:33) sensitivity, dizziness HPI HPI Comments History of Present Illness Details Patient ppresents today for follow up for chronic neck pain with right hand numbness and tingling. She reports upcoming right carpal tunnel release surgery in December by Dr. Wylie. 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 Patient requests to repeat cervical therapeutic MBBs injections and occipital nerve blocks. Her last injections were on 09/03/22 which provided her less than one month pain relief which she still appreciates. She reports these injections allowed her to be less symptomatic and more functional for past 3 months. She is planning to wean herself off gabapentin due to weight gain and is currently working with Nut[employer] provider. Patient has TENS unit but has not used it for a while. She is asking for something stronger than gabapentin. I have informed patient that our office does not offer opioid prescribing at this time. Patient also is interested in repeating SCS trial which she had in the past but was told if she reconsiders SCS trial, this has to be performed by neurosurgeon due to extensive scar tissue. Patient reports she will follow up with [facility] on this. Discussed behavioral assessment prior to SCS trial. Denies any recent cough, cold, infection, fever or other significant changes in medical history since last office visit. Patient denies any bladder or bowel incontinence or saddle anesthesia. PRIOR: Patient presents today via telehealth encounter to discuss response to gabapentin and potential increase in medication. Center came to the office today to assess the results of the bilateral medial branch blocks C2-C3 C4 as well as bilateral lesser and greater occipital nerve block which was performed on 09/03/2022. She reported 70% pain improvement for the past months since injection. She reported her level pick of pain today 08/02. She reports better mobility and less headache. She reports better activities of daily living. She Is starting physical therapy at this time. I explained her limitations about steroid injections. I explained to her that we will not be able to repeat those injections more often than once in 3 months. I explained to her that it will be better yet if her injection will be further apart. When her pain will come back she will give us a call and we will schedule her for repeat of the procedure. PRIOR: Patient is a pleasant 66 years old female, right hand dominant with a history of anterior cervical fusion C5-C7 presents today with worsening neck pain that radiates to both of her shoulders, arms and hands. Patient was previously seen in this office by Any for lower back pain with the last visit in June 2021. Patient also reports numbness and tingling with decreased viscosity worker and grasp strengths in both of her hands with previous tendon surgery on the right at [facility]. Movements, walking, sitting, standing and weather changes exacerbate her pain. Patient reports previous treatments of neck pain with physical therapy, massage, acupuncture, TENS unit, NSAIDs, muscle relaxants, heat therapy, activity modifications and rest with minimal pain relief. Pain is described as constant and progressively worsening with average pain intensity rated at 8/10. Pain presents with limited range of motion of her cervical spine, worse with limited extension than flexion and significant muscle tenderness throughout bilateral trapezius muscles. Her last follow up with neurosurgeon's office was in 2020. Patient also reports previous back surgery. Patient denies any fever, weight loss, visual disturbances, shortness of breaths, chest pain, gait imbalance, bladder or bowel incontinence or saddle anesthesia. PRIOR 07/17/21 Any MANAGER RESIDENTIAL: Today's visit was conducted via telephone to review the effectiveness of bilateral L3 L4 DR L5 radiofrequency ablation performed on 06/17/2021 by . Addie reported increase in pain initially but over the past 2 weeks she has noticed 70% pain relief. She is requesting a referral to physical therapy for core strengthening as she feels she would benefit greatly after her procedure. Of note, she does report an increase in right-sided neck pain as well as numbness in all digits of the right hand. She recently underwent a tendon release procedure the right at [facility] and is unsure if this numbness is related. I encouraged her to follow-up with her surgeon to rule out any complications due to surgery. [facility] Medical History Asthma Bilateral occipital neuralgia Dyspnea on exertion Endogenous depression Essential hypertension Fibromyalgia Hypercholesterolemia Hyperlipidemia LDL goal <70 Lower thoracic back pain Lumbar facet arthropathy Mild cognitive disorder Mitral valve prolapse Obesity (BMI 30-39.9) Obesity, Class I, BMI 30-34.9 Osteoarthritis of left hip Osteopenia Otitis media of left ear Restrictive lung disease RLS (restless legs syndrome) Sacroiliac joint pain Sinusitis Type 2 diabetes mellitus with diabetic polyneuropathy URI (upper respiratory infection) Urinary tract infection Venous insufficiency Surgical History H/O total cystectomy History of back surgery History of bone graft History of cataract surgery History of cervical spinal surgery History of cholecystectomy History of colonoscopy History of hand surgery History of hysterectomy History of lumbar surgery History of shoulder surgery History of total abdominal hysterectomy and bilateral salpingo-oophorectomy Hx of repair of rotator cuff Status post surgical removal of malignant neoplasm of skin Family History Father Lung cancer Diabetes Mother Colon cancer Diabetes Maternal Grandmother Breast cancer Brother S/P triple vessel bypass Diabetes Family/Other Hypertension Hyperlipidemia Social History Household Members: None Housing: House Are you a primary home care associate to a significant other at home: No Do you presently have visiting nurse or other home services: Yes (NURSE EXAMINER 3x week) Alcohol intake: current Alcohol intake frequency: holidays/special occasions only Patient Tobacco Use Status: Never used Tobacco e-Cigarette/Vaping Use: Never Used Second Hand Smoke Exposure: No service: No Current occupational status: disabled Cognitive needs: Yes Hearing needs: Yes (hearing aides) Vision needs: Yes (Reading glasses) Review of Systems Const All systems reviewed & are unremarkable except as noted in HPI and below Physical Exam Vital Signs: Last Vital Signs Pulse 69 11/29/22 10:33 BP 176/96 H 11/29/22 10:33 Pulse Ox 98 11/29/22 10:33 Oxygen Delivery Method Room Air 11/29/22 10:33 BMI result Body Mass Index 36.3 General: Appears afebrile. Alert and oriented. Mood and affect appropriate. Follows and participates in conversation appropriately. Respiratory effort is unlabored. No nasal discharge. Able to transition from sit to stand unassisted. Ambulates with bilaterally normal heel strike and toe off. HEENT Head: Yes normal to inspection, Yes normocephalic, Yes atraumatic and Yes occipital foramen tenderness Neck Neck: Yes normal visual inspection, Yes no lymphadenopathy, Yes no meningeal signs, Yes supple, No anterior neck swelling, No torticollis, Yes no JVD and Yes prominent dorsocervical fat pad Back/Spine/Pelvis Cervical Spine: loss of normal cervical lordosis, cervical muscular tenderness, pain with cervical ROM, Cervical spine scars present, cervical spasm, No Cervical spine tenderness and No step off deformity Thoracic/Lumbar Spine: thoracic and lumbar spine normal to inspection, Thoracic/lumbar spine scar(s), pain with thoraco-lumbar ROM, thoraco-lumbar ROM limited, No thoracic spinal tenderness and No lumbar spinal tenderness Neuro General: no meningeal signs Results Reviewed Results Reviewed: MR CERVICAL SPINE WITHOUT CONTRAST 07/26/22 CLINICAL INFORMATION: Post laminectomy syndrome. COMPARISON: Cervical spine MRI 12/02/2017. TECHNIQUE: MRI of the cervical spine was obtained using routine sequences without contrast. FINDINGS: There are chronic postoperative changes of an anterior cervical discectomy and fusion with hardware and bridging bone fusing the C5-C7 vertebra. There is also bridging bone that fuses the articular facet joints at C2-C3. There is slight grade 1 anterolisthesis of C7 on T1 that appears to be related to advanced facet degenerative changes at this level. Alignment is otherwise normal. Vertebral heights are preserved. No acute bone marrow signal changes. There is disc desiccation at multiple levels without substantial loss of intervertebral disc height. The cervicomedullary junction is normal. Limited visualization of the posterior fossa reveals no abnormal finding. Occipital condyles and lateral C1 masses are intact. There is advanced degenerative arthrosis of the atlantodental joint. C1-C2 articular facets are unremarkable. At C2-C3 there is no canal or neuroforaminal compromise. At C3-C4 there is a diffusely bulging disc and buckling of ligamenta flava causing moderate canal stenosis. Uncovertebral joint spurring and facet degenerative change causes moderate to severe bilateral neural foramen encroachment. At C4-C5 there is a bulging disc and buckling of the ligamenta flava causing moderate canal stenosis. Uncovertebral joint spurring and facet degenerative change causes moderate to severe bilateral neuroforaminal encroachment. At C5-C6 there is no canal or neuroforaminal compromise. At C6-C7 there is no canal or neuroforaminal compromise. At C7-T1 there is a slightly bulging disc. Advanced facet degenerative change. No canal stenosis. Mild bilateral neuroforaminal encroachment. Visualized soft tissues of the neck are normal. Vascular flow voids are maintained. IMPRESSION: There are chronic postoperative changes of an anterior cervical discectomy and fusion with hardware and bridging bone fusing the C5-C7 vertebra. There is also bridging bone that fuses the articular facet joints at C2-C3. There is junctional spondylosis resulting in moderate canal stenosis at C3-C4 and C4-C5. There is also moderate to severe neuroforaminal encroachment at each of these 2 levels. No overt cord compression and no abnormal intramedullary signal changes. Assessment & Plan Assessment & Plan (1) Postlaminectomy syndrome, lumbar: Code(s): M96.1 - Postlaminectomy syndrome, not elsewhere classified (2) Cervicalgia: Code(s): M54.2 - Cervicalgia (3) Muscle spasms of neck: Code(s): M62.838 - Other muscle spasm (4) Bilateral occipital neuralgia: Code(s): M54.81 - Occipital neuralgia (5) Degenerative cervical spinal stenosis: Code(s): M48.02 - Spinal stenosis, cervical region Plan 1. Script provided for cyclobenzaprine. Stop tizanidine. Monitor for any side effects. 2. Patient requests to repeat neck injections that were done in 09/03/[address] Quijano with 70% pain improvement. Patient reports daily neck pain with cervical flexion and extension with weakness, numbness and tingling in her hands. She is scheduled to undergo right CTS release surgery next month with Dr. Wylie. 3. Schedule for repeat Bilateral C2/C3/C4 Therapeutic Medial Branch Blocks and Bilateral Lesser and Greater Occipital Nerve Block with local and fluoroscopy. Expectations, risks and benefits were reviewed. Most recent A1C was 6.1 on 11/24/22. All questions and concerns have been answered and patient agreed with the plan. Follow up after injections and sooner as needed. Medications: New cyclobenzaprine 10 mg (2 x 5 mg) PO BEDTIME 30 days PRN 60 tabs 1RF muscle spasm M54.2 - Cervicalgia, M62.838 - Other muscle spasm, M96.1 - Postlaminectomy syndrome, not elsewhere classified Changed From diclofenac sodium 1% (Voltaren Arthritis Pain) Apply 1-3 grams (pumps) to the affected area 3-4 times daily. 4 grams topical QID 30 days 180 grams 1RF pain M47.812 - Spondylosis without myelopathy or radiculopathy, cervical region, M47.819 - Spondylosis without myelopathy or radiculopathy, site unspecified, M54.12 - Radiculopathy, cervical region, M62.838 - Other muscle spasm, M96.1 - Postlaminectomy syndrome, not elsewhere classified To diclofenac sodium 1% (Voltaren Arthritis Pain) apply pea-sized amount 3-5 times daily to painful areas as needed 4 grams topical QID 180 grams 1RF pain 30 days M47.812 - Spondylosis without myelopathy or radiculopathy, cervical region, M47.819 - Spondylosis without myelopathy or radiculopathy, site unspecified, M54.12 - Radiculopathy, cervical region, M62.838 - Other muscle spasm, M96.1 - Postlaminectomy syndrome, not elsewhere classified Discontinued tizanidine Discontinued Reason: Patient Completed Course 4 mg PO BID PRN 60 tabs 0RF for muscle spasm M48.02 - Spinal stenosis, cervical region, M62.838 - Other muscle spasm, M96.1 - Postlaminectomy syndrome, not elsewhere classified Coding Level of Care Code Est Pt Level 4 (26331) Diagnoses Postlaminectomy syndrome, lumbar M96.1 Cervicalgia M54.2 Muscle spasms of neck M62.838 Bilateral occipital neuralgia M54.81 Degenerative cervical spinal stenosis M48.02
[2022-11-29 10:33] VITALS: BP 176/96; PULSE 69; O2SAT 98; BMI 36.3
== END 2022-11-29 10:50 | disposition home or self-care (01) ==
PROVIDERS: PCP Internal Medicine; Visit Provider Nurse Practitioner Family
DX: M96.1 Postlaminectomy syndrome, not elsewhere classified (principal); M54.2 Cervicalgia; M62.838 Other muscle spasm; M47.812 Spondylosis without myelopathy or radiculopathy, cervical region; M54.81 Occipital neuralgia; M48.02 Spinal stenosis, cervical region
CPT/HCPCS: 99214

== ENCOUNTER 2023-02-08 10:00 | Outpatient (RCR) | payer MEDICARE, MEDICAID, SELFPAY | END 2023-03-11 07:36 | disposition home or self-care (01) | LOC: HO.PTCHIC 10:00 | PROVIDERS: PCP Nurse Practitioner Family; Visit Provider Physician Assistant Surgical | DX: M75.41 Impingement syndrome of right shoulder (principal); M75.42 Impingement syndrome of left shoulder | CPT/HCPCS: 97014; 97110; 97140; 97161; 97162 ==

== ENCOUNTER 2023-02-23 08:02 | Outpatient (REF) | payer MEDICARE, MEDICAID, SELFPAY ==
[2023-02-23 08:16] LABS: MANUAL DIFF FLAG NO
[2023-02-23 09:04] LABS: Basophils Absolute Auto 0.1 X10*3/uL (0.0-0.2); Basophils Percent Auto 0.6 % (0-2); Eosinophils Absolute Auto 0.1 X10*3/uL (0.0-0.4); Eosinophils Percent Auto 1.3 % (0-4); Hematocrit 46.4 % (37.0-47.0); Hemoglobin 15.3 g/dl (12.0-16.0); Imm Gran Abs Auto 0.08 X10*3/uL (0.00-0.03); Imm Gran Pct Auto 0.8 % (0.0-0.4); Lymphocytes Absolute Auto 2.6 X10*3/uL (1.2-4.9); Lymphocytes Percent Auto 26.7 % (20-40); Mean Corpuscular Hemoglobin 29.1 pg (27.0-33.0); Mean Corpuscular Volume 88.2 fL (80.0-98.0); Mean Platelet Volume 10.8 fL (9.4-12.3); Monocytes Absolute Auto 0.6 X10*3/uL (0.1-1.2); Monocytes Percent Auto 5.8 % (2-11); Neutrophils Absolute Auto 6.4 x10*3/uL (2.0-8.3); Neutrophils Percent Auto 64.8 % (45-73); Platelet Count 277 X10*3/uL (160-400); Red Blood Count 5.26 X10*6/uL (4.20-5.50); Red Cell Distribution Width 13.6 % (11.0-16.0); White Blood Count 9.8 X10*3/uL (4.8-10.8)
[2023-02-23 09:57] LABS: Rheumatoid Factor < 13.0 IU/mL (<15.0)
[2023-02-23 10:05] LABS: Alanine Aminotransferase 19 U/L (0-31); Albumin Level 4.1 g/dL (3.5-5.0); Alkaline Phosphatase 74 U/L (39-117); Anion Gap 13 (12-20); Aspartate Amino Transferase 15 U/L (5-31); Bilirubin Total 0.4 mg/dL (0.0-1.0); Blood Urea Nitrogen 13 mg/dL (9-16); Calcium 9.7 mg/dL (8.4-10.2); Carbon Dioxide 28 mmol/L (22-29); Chloride 105 mmol/L (96-108); Cholesterol 205 mg/dL (<200); Estimated Glomerular Filt Rate > 60; Glucose Fasting 126 mg/dL (60-99); HDL Cholesterol 70 mg/dL (>40); LDL Cholesterol Calculated 115 mg/dL (<100); Potassium 4.3 mmol/L (3.3-5.1); Sodium 142 mmol/L (135-145); Triglycerides 104 mg/dL (<150)
[2023-02-23 10:22] LABS: TSH reflex Free T4 1.66 uIU/mL (0.32-4.0); Vitamin D 25-OH Total 55.9 ng/mL (>30)
[2023-02-23 10:26] LABS: Folate 8.8 ng/mL (> or = 4.0); Vitamin B12 659 pg/mL (200-900)
[2023-02-23 10:48] LABS: Creatinine Urine 110.56 mg/dL; Microalbum/Creatinine Ratio Ur 28.9 ug/mg cr (<30)
[2023-02-25 12:24] LABS: Anti Nuclear Antibody Screen NEGATIVE (NEGATIVE)
== END 2023-02-23 08:03 | disposition home or self-care (01) ==
LOC: HO.LAB 08:02
PROVIDERS: PCP Nurse Practitioner Family; Visit Provider Nurse Practitioner Family
DX: E11.42 Type 2 diabetes mellitus with diabetic polyneuropathy (principal); M54.2 Cervicalgia; E78.5 Hyperlipidemia, unspecified; M85.80 Other specified disorders of bone density and structure, unspecified site; F41.9 Anxiety disorder, unspecified
CPT/HCPCS: 36415; 80053; 80061; 82043; 82306; 82570; 82607; 82746; 84443; 85025; 86038; 86431

== ENCOUNTER 2023-03-16 09:28 | Outpatient (REF) | payer MEDICARE, MEDICAID, SELFPAY ==
--- NOTE | ~2023-03-16 | MR_ITS ---
EXAMINATION: MR SHOULDER WITHOUT CONTRAST, RIGHT CLINICAL INFORMATION: Right shoulder pain. COMPARISON: None available. TECHNIQUE: MRI of the shoulder without contrast was performed on a high-field scanner. FINDINGS: ROTATOR CUFF: There is moderate supraspinatus tendinosis with bursal surface fraying. More mild infraspinatus tendinosis is noted with a small 3 x 2 mm focus of concealed interstitial delamination. No surfacing tears. Mild subscapularis tendinosis. No muscle atrophy or fatty infiltration. There is a 3.3 x 1.8 x 1.8 cm focus of fat signal intensity within the anterior fibers of the deltoid muscle, consistent with an intramuscular lipoma. No suspicious features. BICEPS: Normal. CORACOACROMIAL ARCH: The undersurface of the acromion is remodeled and flat, most consistent with a prior acromioplasty. Blunting of the distal clavicle is likely the result of a prior distal clavicular resection. No significant subacromial-subdeltoid bursal fluid. LABRUM/CAPSULE: The labrum is diminutive posterosuperiorly, posteriorly, and inferiorly, likely degenerative in nature. There is an ill-defined degenerative tear of the glenoid labrum inferiorly. Joint capsule is intact. GLENOHUMERAL JOINT/MARROW: Small marginal osteophytes. No fracture or malalignment. Mild chondral thinning of the glenohumeral head articular cartilage. No fracture or malalignment. No joint effusion MR/MR shoulder RT wo con IMPRESSION: 1. Moderate supraspinatus tendinosis with bursal surface fraying. More mild infraspinatus and subscapularis tendinosis. No significant rotator cuff tears. 2. Mild glenohumeral osteoarthritis with degenerative tearing of the glenoid labrum. 3. 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 4. Prior acromioplasty and distal clavicular resection.
== END 2023-03-16 09:29 | disposition home or self-care (01) ==
LOC: HO.MRI 09:28
PROVIDERS: PCP Nurse Practitioner Family; Visit Provider Physician Assistant Surgical
DX: M25.511 Pain in right shoulder (principal)
CPT/HCPCS: 73221

== ENCOUNTER 2023-04-07 10:47 | Outpatient (AMB) | payer MEDICARE, MEDICAID, SELFPAY ==
--- NOTE | 2023-04-07 10:49 | MHC.OFFVIS ---
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 Patient reports increased appetite on current dose of gabapentin 300 mg which she now takes once daily instead TID and would like to decrease this to 100 mg TID. Patient reports Flexeril has been effective for neck pain and spasms. She tolerated both medications well without any other side effects except weight gain and increased appetite on gabapentin. Patient reports good results with recent right shoulder cortisone injections and she is holding off on carpal tunnel release surgery at this time. Denies any recent cough, cold, infection, fever or other significant changes in medical history since last office visit. Past Procedures: 09/03/22:Bilateral C2/C3/C4 Therapeutic Medial Branch Blocks and Bilateral Lesser and Greater Occipital Nerve Block-70% pain relief PRIOR: Patient presents today for follow up for chronic neck pain with right hand numbness and tingling. She reports upcoming right carpal tunnel release surgery in December by Dr. Wylie. 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 Patient requests to repeat cervical therapeutic MBBs injections and occipital nerve blocks. Her last injections were on 09/03/22 which provided her less than one month pain relief which she still appreciates. She reports these injections allowed her to be less symptomatic and more functional for past 3 months. She is planning to wean herself off gabapentin due to weight gain and is currently working with [employer] provider. Patient has TENS unit but has not used it for a while. She is asking for something stronger than gabapentin. I have informed patient that our office does not offer opioid prescribing at this time. Patient also is interested in repeating SCS trial which she had in the past but was told if she reconsiders SCS trial, this has to be performed by neurosurgeon due to extensive scar tissue. Patient reports she will follow up with [facility] on this. Discussed behavioral assessment prior to SCS trial. Denies any recent cough, cold, infection, fever or other significant changes in medical history since last office visit. Patient denies any bladder or bowel incontinence or saddle anesthesia. PRIOR: Patient presents today via telehealth encounter to discuss response to gabapentin and potential increase in medication. Center came to the office today to assess the results of the bilateral medial branch blocks C2-C3 C4 as well as bilateral lesser and greater occipital nerve block which was performed on 09/03/2022. She reported 70% pain improvement for the past months since injection. She reported her level pick of pain today 08/02. She reports better mobility and less headache. She reports better activities of daily living. She Is starting physical therapy at this time. I explained her limitations about steroid injections. I explained to her that we will not be able to repeat those injections more often than once in 3 months. I explained to her that it will be better yet if her injection will be further apart. When her pain will come back she will give us a call and we will schedule her for repeat of the procedure. PRIOR: Patient is a pleasant 66 years old female, right hand dominant with a history of anterior cervical fusion C5-C7 presents today with worsening neck pain that radiates to both of her shoulders, arms and hands. Patient was previously seen in this office by [facility] for lower back pain with the last visit in June 2021. 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 Movements, walking, sitting, standing and weather changes exacerbate her pain. Patient reports previous treatments of neck pain with physical therapy, massage, acupuncture, TENS unit, NSAIDs, muscle relaxants, heat therapy, activity modifications and rest with minimal pain relief. Pain is described as constant and progressively worsening with average pain intensity rated at 8/10. Pain presents with limited range of motion of her cervical spine, worse with limited extension than flexion and significant muscle tenderness throughout bilateral trapezius muscles. Her last follow up with neurosurgeon's office was in 2020. Patient also reports previous back surgery. Patient denies any fever, weight loss, visual disturbances, shortness of breaths, chest pain, gait imbalance, bladder or bowel incontinence or saddle anesthesia. PRIOR 07/17/21 Any CABRALES: Today's visit was conducted via telephone to review the effectiveness of bilateral L3 L4 DR L5 radiofrequency ablation performed on 06/17/2021 by . Addie reported increase in pain initially but over the past 2 weeks she has noticed 70% pain relief. She is requesting a referral to physical therapy for core strengthening as she feels she would benefit greatly after her procedure. Of note, she does report an increase in right-sided neck pain as well as numbness in all digits of the right hand. She recently underwent a tendon release procedure the right at [facility] and is unsure if this numbness is related. I encouraged her to follow-up with her surgeon to rule out any complications due to surgery. 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 Restrictive lung disease Obesity (BMI 30-39.9) Dyspnea on exertion Asthma Hypercholesterolemia Surgical History History of colonoscopy History of back surgery Hx of repair of rotator cuff History of hand surgery Status post surgical removal of malignant neoplasm of skin History of lumbar surgery History of bone graft History of cholecystectomy History of total abdominal hysterectomy and bilateral salpingo-oophorectomy H/O total cystectomy History of cervical spinal surgery History of shoulder surgery History of cataract surgery History of hysterectomy Family History Father Lung cancer Diabetes Mother Colon cancer Diabetes Maternal Grandmother Breast cancer Brother S/P triple vessel bypass Diabetes Family/Other Hypertension Hyperlipidemia Social History Household Members: None Housing: House Are you a primary director day care center to a significant other at home: No Do you presently have visiting nurse or other home services: Yes ([employer] 3x week) Alcohol intake: current Alcohol intake frequency: holidays/special occasions only Patient Tobacco Use Status: Never used Tobacco e-Cigarette/Vaping Use: Never Used Second Hand Smoke Exposure: No service: No Current occupational status: disabled Cognitive needs: Yes Hearing needs: Yes (hearing aides) Vision needs: Yes (Reading glasses) Review of Systems Const All systems reviewed & are unremarkable except as noted in HPI and below Physical Exam Vital Signs: Last Vital Signs Pulse 72 04/07/23 10:54 BP 149/83 H 04/07/23 10:54 Pulse Ox 97 04/07/23 10:54 Oxygen Delivery Method Room Air 04/07/23 10:54 BMI result Body Mass Index 35.1 General: Appears afebrile. Alert and oriented. Mood and affect appropriate. Follows and participates in conversation appropriately. Respiratory effort is unlabored. No nasal discharge. Able to transition from sit to stand unassisted. Ambulates with bilaterally normal heel strike and toe off. Neck Neck: Yes normal visual inspection, Yes no lymphadenopathy, Yes supple, No anterior neck swelling and Yes no JVD Back/Spine/Pelvis Cervical Spine: loss of normal cervical lordosis, cervical muscular tenderness, pain with cervical ROM, Cervical spine scars present, cervical spasm, No Cervical spine tenderness and No step off deformity Thoracic/Lumbar Spine: thoracic and lumbar spine normal to inspection, Thoracic/lumbar spine scar(s), pain with thoraco-lumbar ROM, thoraco-lumbar ROM limited, No thoracic spinal tenderness and No lumbar spinal tenderness Results Reviewed Results Reviewed: MR CERVICAL SPINE WITHOUT CONTRAST 07/26/22 CLINICAL INFORMATION: Post laminectomy syndrome. COMPARISON: Cervical spine MRI 12/02/2017. FINDINGS: There are chronic postoperative changes of an anterior cervical discectomy and fusion with hardware and bridging bone fusing the C5-C7 vertebra. There is also bridging bone that fuses the articular facet joints at C2-C3. There is slight grade 1 anterolisthesis of C7 on T1 that appears to be related to advanced facet degenerative changes at this level. Alignment is otherwise normal. Vertebral heights are preserved. No acute bone marrow signal changes. There is disc desiccation at multiple levels without substantial loss of intervertebral disc height. The cervicomedullary junction is normal. Limited visualization of the posterior fossa reveals no abnormal finding. Occipital condyles and lateral C1 masses are intact. There is advanced degenerative arthrosis of the atlantodental joint. C1-C2 articular facets are unremarkable. At C2-C3 there is no canal or neuroforaminal compromise. At C3-C4 there is a diffusely bulging disc and buckling of ligamenta flava causing moderate canal stenosis. Uncovertebral joint spurring and facet degenerative change causes moderate to severe bilateral neural foramen encroachment. At C4-C5 there is a bulging disc and buckling of the ligamenta flava causing moderate canal stenosis. Uncovertebral joint spurring and facet degenerative change causes moderate to severe bilateral neuroforaminal encroachment. At C5-C6 there is no canal or neuroforaminal compromise. At C6-C7 there is no canal or neuroforaminal compromise. At C7-T1 there is a slightly bulging disc. Advanced facet degenerative change. No canal stenosis. Mild bilateral neuroforaminal encroachment. Visualized soft tissues of the neck are normal. Vascular flow voids are maintained. IMPRESSION: There are chronic postoperative changes of an anterior cervical discectomy and fusion with hardware and bridging bone fusing the C5-C7 vertebra. There is also bridging bone that fuses the articular facet joints at C2-C3. There is junctional spondylosis resulting in moderate canal stenosis at C3-C4 and C4-C5. There is also moderate to severe neuroforaminal encroachment at each of these 2 levels. No overt cord compression and no abnormal intramedullary signal changes. Assessment & Plan Assessment & Plan (1) Postlaminectomy syndrome, lumbar: Code(s): M96.1 - Postlaminectomy syndrome, not elsewhere classified (2) Cervicalgia: Code(s): M54.2 - Cervicalgia (3) Muscle spasms of neck: Code(s): M62.838 - Other muscle spasm (4) Bilateral occipital neuralgia: Code(s): M54.81 - Occipital neuralgia Plan 1. Refills provided for Flexeril and Gabapentin. Continue to monitor for any side effects. 2. Patient will reach out to our office if she is interested in repeating neck injections. Last time she had Bilateral C2/C3/C4 Therapeutic Medial Branch Blocks and Bilateral Lesser and Greater Occipital Nerve Block on 09/03/[address] Quijano which provided her 70% pain improvement. She is not interested in neuromodulation with SCS trial at this time. All questions and concerns have been answered. Follow up as needed. Medications: Changed From cyclobenzaprine 10 mg (2 x 5 mg) PO BEDTIME 30 days PRN 60 tabs 1RF muscle spasm M54.2 - Cervicalgia, M62.838 - Other muscle spasm, M96.1 - Postlaminectomy syndrome, not elsewhere classified To cyclobenzaprine 10 mg (2 x 5 mg) PO BEDTIME 90 days PRN 60 tabs 3RF muscle spasm M54.2 - Cervicalgia, M62.838 - Other muscle spasm, M96.1 - Postlaminectomy syndrome, not elsewhere classified From gabapentin 300 mg PO TID 90 days 270 caps 1RF pain M54.2 - Cervicalgia, M96.1 - Postlaminectomy syndrome, not elsewhere classified To gabapentin 100 mg PO TID 30 days 90 caps 1RF pain M54.2 - Cervicalgia, M96.1 - Postlaminectomy syndrome, not elsewhere classified Coding Level of Care Code Est Pt Level 4 (05721) Diagnoses Postlaminectomy syndrome, lumbar M96.1 Cervicalgia M54.2 Muscle spasms of neck M62.838 Bilateral occipital neuralgia M54.81
[2023-04-07 10:54] VITALS: BP 149/83; PULSE 72; O2SAT 97; BMI 35.1
== END 2023-04-07 11:26 | disposition home or self-care (01) ==
PROVIDERS: PCP Nurse Practitioner Family; Visit Provider Nurse Practitioner Family
DX: M96.1 Postlaminectomy syndrome, not elsewhere classified (principal); M54.2 Cervicalgia; M62.838 Other muscle spasm; M54.81 Occipital neuralgia
CPT/HCPCS: 99214

== ENCOUNTER → 2023-04-07 10:47 | Outpatient (BNVA) | payer MEDICARE, MEDICAID, SELFPAY | PROVIDERS: PCP Nurse Practitioner Family; Visit Provider Nurse Practitioner Family | DX: Z51.81 Encounter for therapeutic drug level monitoring (principal); M96.1 Postlaminectomy syndrome, not elsewhere classified; M54.2 Cervicalgia; M62.838 Other muscle spasm; M54.81 Occipital neuralgia; Z79.899 Other long term (current) drug therapy | CPT/HCPCS: 99212 ==

== ENCOUNTER 2023-12-30 09:56 | Outpatient (REF) | payer MEDICARE, MEDICAID, SELFPAY ==
--- NOTE | ~2023-12-30 | XR_ITS ---
EXAMINATION: XR BILATERAL HIPS WITH AP PELVIS CLINICAL INFORMATION: Low back pain. Pain in both hips COMPARISON: X-ray left hip September 2020 TECHNIQUE: AP pelvis and AP and lateral views of both hips FINDINGS: Right hip: Hip joint and surrounding bones and soft tissues are normal. Left hip: The left hip joint and surrounding bones and soft tissues are normal. Pelvis: There is some ossification adjacent to the left superior iliac spine prepped related to old adjacent soft tissue trauma. Remaining bones joints and soft tissues of the pelvis normal. Minimal spondylosis of the partially visualized lumbar sacral spine. XR/XR hip BI w PEL1V IMPRESSION: RIGHT HIP: Normal. LEFT HIP: Normal. PELVIS: Ossification adjacent to the left superior iliac spine likely related to old soft tissue trauma. Electronically signed by: Samm Valadez MD 01/05/2024 12:17 PM EDT
== END 2023-12-30 09:57 | disposition home or self-care (01) ==
LOC: HO.XRAY 09:56
PROVIDERS: PCP Nurse Practitioner Family; Visit Provider Nurse Practitioner Family
DX: M54.50 Low back pain, unspecified (principal); G89.29 Other chronic pain; M25.551 Pain in right hip; M25.552 Pain in left hip; M53.3 Sacrococcygeal disorders, not elsewhere classified
CPT/HCPCS: 73521; 99212

== ENCOUNTER 2023-12-30 09:56 | Outpatient (AMB) | payer MEDICARE, MEDICAID, SELFPAY ==
--- NOTE | 2023-12-30 09:58 | MHC.OFFVIS ---
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 Denies any recent trauma, injury or falls. Patient reports lumbar medial branch RFA done in 2021 has provided her about 2 years of pain relief. She is intersted to repeat RFA for axial low back pain. Patient reports increasing bilateral hip pain, low back pain with radiation into right buttock and sacral area and into right lower extremity but not below knee level. Denies numbness, tingling, bladder or bowel dysfunction or saddle anesthesia. She also reports right groin pain, occasionally left groin pain with weight bearing, walking or climbing stairs. Sleeping on her sides also increase her hip pain. Patient walks 2 miles daily and has been taking gabapentin 100 mg at bedtime and Tylenol prn with minimal pain relief. She does report good appetite when taking gabapentin. Denies any recent cough, cold, infection, fever or other significant changes in medical history since last office visit. Past Procedures: 09/03/22:Bilateral C2/C3/C4 Therapeutic Medial Branch Blocks and Bilateral Lesser and Greater Occipital Nerve Block-70% pain relief 06/17/21: Bilateral L3 L4 DR L5 RFA-70% pain relief >2 years PRIOR: Patient presents today for follow up for chronic neck pain with right hand numbness and tingling. She reports upcoming right carpal tunnel release surgery in December by Dr. Wylie. 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 Patient requests to repeat cervical therapeutic MBBs injections and occipital nerve blocks. Her last injections were on 09/03/22 which provided her less than one month pain relief which she still appreciates. She reports these injections allowed her to be less symptomatic and more functional for past 3 months. She is planning to wean herself off gabapentin due to weight gain and is currently working with [facility] provider. Patient has TENS unit but has not used it for a while. She is asking for something stronger than gabapentin. I have informed patient that our office does not offer opioid prescribing at this time. Patient also is interested in repeating SCS trial which she had in the past but was told if she reconsiders SCS trial, this has to be performed by neurosurgeon due to extensive scar tissue. Patient reports she will follow up with [facility] on this. Discussed behavioral assessment prior to SCS trial. Denies any recent cough, cold, infection, fever or other significant changes in medical history since last office visit. Patient denies any bladder or bowel incontinence or saddle anesthesia. PRIOR: Patient presents today via telehealth encounter to discuss response to gabapentin and potential increase in medication. Center came to the office today to assess the results of the bilateral medial branch blocks C2-C3 C4 as well as bilateral lesser and greater occipital nerve block which was performed on 09/03/2022. She reported 70% pain improvement for the past months since injection. She reported her level pick of pain today 08/02. She reports better mobility and less headache. She reports better activities of daily living. She Is starting physical therapy at this time. I explained her limitations about steroid injections. I explained to her that we will not be able to repeat those injections more often than once in 3 months. I explained to her that it will be better yet if her injection will be further apart. When her pain will come back she will give us a call and we will schedule her for repeat of the procedure. PRIOR: Patient is a pleasant 66 years old female, right hand dominant with a history of anterior cervical fusion C5-C7 presents today with worsening neck pain that radiates to both of her shoulders, arms and hands. Patient was previously seen in this office by Any for lower back pain with the last visit in June 2021. Patient also reports numbness and tingling with decreased autocutter and grasp strengths in both of her hands with previous tendon surgery on the right at [facility]. Movements, walking, sitting, standing and weather changes exacerbate her pain. Patient reports previous treatments of neck pain with physical therapy, massage, acupuncture, TENS unit, NSAIDs, muscle relaxants, heat therapy, activity modifications and rest with minimal pain relief. Pain is described as constant and progressively worsening with average pain intensity rated at 8/10. Pain presents with limited range of motion of her cervical spine, worse with limited extension than flexion and significant muscle tenderness throughout bilateral trapezius muscles. Her last follow up with neurosurgeon's office was in 2020. Patient also reports previous back surgery. Patient denies any fever, weight loss, visual disturbances, shortness of breaths, chest pain, gait imbalance, bladder or bowel incontinence or saddle anesthesia. PRIOR 07/17/21 Any CABRALES: Today's visit was conducted via telephone to review the effectiveness of bilateral L3 L4 DR L5 radiofrequency ablation performed on 06/17/2021 by . Addie reported increase in pain initially but over the past 2 weeks she has noticed 70% pain relief. She is requesting a referral to physical therapy for core strengthening as she feels she would benefit greatly after her procedure. Of note, she does report an increase in right-sided neck pain as well as numbness in all digits of the right hand. She recently underwent a tendon release procedure the right at [facility] and is unsure if this numbness is related. I encouraged her to follow-up with her surgeon to rule out any complications due to surgery. [facility] Medical History (Updated 12/30/23 @ 10:19 by SAMRA Strong) Sacroiliac joint pain Bilateral occipital neuralgia URI (upper respiratory infection) Urinary tract infection Otitis media of left ear Sinusitis Osteopenia Mild cognitive disorder Lumbar facet arthropathy Osteoarthritis of left hip Lower thoracic back pain Mitral valve prolapse Venous insufficiency RLS (restless legs syndrome) Fibromyalgia Essential hypertension Hyperlipidemia LDL goal <70 Obesity, Class I, BMI 30-34.9 Type 2 diabetes mellitus with diabetic polyneuropathy Endogenous depression Restrictive lung disease Obesity (BMI 30-39.9) Dyspnea on exertion Asthma Hypercholesterolemia Surgical History History of colonoscopy History of back surgery Hx of repair of rotator cuff History of hand surgery Status post surgical removal of malignant neoplasm of skin History of lumbar surgery History of bone graft History of cholecystectomy History of total abdominal hysterectomy and bilateral salpingo-oophorectomy H/O total cystectomy History of cervical spinal surgery History of shoulder surgery History of cataract surgery History of hysterectomy Family History Father Lung cancer Diabetes Mother Colon cancer Diabetes Maternal Grandmother Breast cancer Brother S/P triple vessel bypass Diabetes Family/Other Hypertension Hyperlipidemia Social History Household Members: None Housing: House Are you a primary career and transition teacher to a significant other at home: No Do you presently have visiting nurse or other home services: Yes ([employer] AP[employer]ENT[employer] 3x week) Alcohol intake: current Alcohol intake frequency: holidays/special occasions only Patient Tobacco Use Status: Never used Tobacco e-Cigarette/Vaping Use: Never Used Second Hand Smoke Exposure: No service: No Current occupational status: disabled Cognitive needs: Yes Hearing needs: Yes (hearing aides) Vision needs: Yes (Reading glasses) Review of Systems Const All systems reviewed & are unremarkable except as noted in HPI and below Physical Exam Vital Signs: Last Vital Signs Pulse 73 12/30/23 10:02 BP 150/80 H 12/30/23 10:02 Pulse Ox 97 12/30/23 10:02 Oxygen Delivery Method Room Air 12/30/23 10:02 BMI result Body Mass Index 33.7 General: Appears afebrile. Alert and oriented. Mood and affect appropriate. Follows and participates in conversation appropriately. Respiratory effort is unlabored. No nasal discharge. Able to transition from sit to stand unassisted. Ambulates with bilaterally normal heel strike and toe off. Neck Neck: Yes normal visual inspection, Yes no lymphadenopathy, Yes supple, No anterior neck swelling and Yes no JVD General: Yes no CVA tenderness Back/Spine/Pelvis Other: Limited lumbar ROM due to pain. Lumbar extension and axial rotations reproduce moderate pain, right>left. Mild pain with lumbar flexion or bending down. Demonstrates 5/5 left and 4/5 right strength of quadriceps bilaterally as well as flexion/dorsiflexion of bilateral feet against resistance. 2+ pedal pulses bilaterally. Seated straight leg rise with dorsiflexion reproduces right SIJ area pain. +1 patellar and achilles reflexes bilaterally. Facet loading test positive bilaterally. Serena sign, Brent?s, Gaenslen, Pelvic compression and Stinchfield tests are positive on the right. Minimal groin pain with I/E hip rotations bilaterally. Mild TTP to bilateral GTB. Valsalva maneuver negative. Back: no CVA tenderness Cervical Spine: cervical muscular tenderness, Cervical spine scars present and No Cervical spine tenderness Thoracic/Lumbar Spine: thoracic and lumbar spine normal to inspection, Thoracic/lumbar spine scar(s), Lasegue's sign negative, straight leg raise negative bilaterally, pain with thoraco-lumbar ROM, thoraco-lumbar ROM limited, No thoracic spinal tenderness and lumbar spinal tenderness (L4-S1) Pelvis: buttock tenderness on the right and no sciatic notch tenderness Sacroiliac joints: on the right tender to palpation and on the left nontender Results Reviewed Results Reviewed: CT abdomen pelvis wo IV con 01/19/22 OSSEOUS STRUCTURES: There are degenerative changes of the spine. Spinal stimulator has been removed. MM/XR DEXA axial skeleton 08/12/21 IMPRESSION: 1. DIAGNOSIS: Osteopenia based on the lowest T-score value of -1.7 in the lumbar spine applying World Health Organization criteria. MR LUMBAR SPINE WITHOUT AND WITH CONTRAST 12/02/2017 CLINICAL INFORMATION: Bilateral leg pain. COMPARISON: X-ray lumbar spine from 09/14/2016. FINDINGS: VERTEBRAL BODIES AND PARASPINAL STRUCTURES: Postsurgical changes are present in the subcutaneous tissues of the patient's mid lower back at the site of a previous neurostimulator device. There is a very mild rightward curvature of the mid lumbar spine. An intraosseous hemangioma is noted within the L3 vertebral body and the left L1 pedicle. The marrow signal is otherwise within normal limits. There are no compression fractures or subluxations. The imaged bony pelvis appears normal. CONUS MEDULLARIS AND CAUDA EQUINA: Normal, terminating at the level of L1. No lower cord signal abnormality is seen. The cauda equina nerve roots appear normal. There is no abnormal leptomeningeal or cord enhancement. There is a small fatty filum. SPINAL LEVELS: L1-L2: No disc pathology, central canal stenosis, or foraminal narrowing. Mild facet arthropathy. L2-L3: Mild right lateralized disc bulge without significant foraminal encroachment. No central canal stenosis. L3-L4: Kxpi-mw-rwlcwlog hypertrophic facet arthropathy present with a minimal annular bulge. Patent foramina. Mild central canal stenosis. L4-L5: Diffuse disc bulge and moderate facet arthropathy with chronic postlaminectomy changes on the right side. Mild central canal stenosis. No foraminal narrowing. L5-S1: Chronic postlaminectomy changes on the left side with hypertrophic facet arthropathy. No disc protrusion. Very mild annular bulge. Patent foramina. IMPRESSION: Chronic postlaminectomy changes in the lower lumbar spine without evidence of a residual or recurrent disc protrusion. Minimal annular bulges without foraminal narrowing. Mild central canal stenosis at L3-L4 and L4-L5 with facet arthropathy. Assessment & Plan Assessment & Plan (1) Sacroiliac joint pain: Code(s): M53.3 - Sacrococcygeal disorders, not elsewhere classified Category: Medical (2) Chronic lower back pain: Code(s): M54.50 - Low back pain, unspecified; G89.29 - Other chronic pain Category: Medical (3) Bilateral hip pain: Code(s): M25.551 - Pain in right hip; M25.552 - Pain in left hip Category: Medical (4) Postlaminectomy syndrome, lumbar: Code(s): M96.1 - Postlaminectomy syndrome, not elsewhere classified Category: Medical Plan Patient's pain is consistent with post-laminectomy syndrome, axial low back pain and SI joint pain with bilateral hip pain. We will proceed with obtaining hip with pelvic you x-ray imaging to assess degree of arthritis. Patient is considering to repeat lumbar medial branch RFA as this has provided her almost 2 years of pain relief. She is not interested in neuromodulation spinal cord stimulation re-trial at this time. Patient would like to undergo Left therapeutic SI joint injection with local and fluoroscopy. We also discussed peripheral nerve stimulation, RFA and SI joint fusion procedures. Expectations, risks and benefits were reviewed. Patient is aware she will be contacted to schedule this procedure. All questions were answered and the patient is in agreement of plan. Follow-up after injections and sooner as needed. Orders: Orders XR hip BI w PEL1V Today G89.29 - Other chronic pain, M25.551 - Pain in right hip, M25.552 - Pain in left hip, M53.3 - Sacrococcygeal disorders, not elsewhere classified, M54.50 - Low back pain, unspecified Coding Level of Care Code Est Pt Level 4 (59070) Complex EM visit Add On G2211 Diagnoses Sacroiliac joint pain M53.3 Chronic lower back pain M54.50; G89.29 Bilateral hip pain M25.551; M25.552 Postlaminectomy syndrome, lumbar M96.1
[2023-12-30 10:02] VITALS: BP 150/80; PULSE 73; O2SAT 97; BMI 33.7
== END 2023-12-30 10:35 | disposition home or self-care (01) ==
PROVIDERS: PCP Nurse Practitioner Family; Visit Provider Nurse Practitioner Family
DX: M53.3 Sacrococcygeal disorders, not elsewhere classified (principal); M54.50 Low back pain, unspecified; G89.29 Other chronic pain; M25.551 Pain in right hip; M25.552 Pain in left hip; M96.1 Postlaminectomy syndrome, not elsewhere classified
CPT/HCPCS: 99214; G2211

== ENCOUNTER 2024-02-02 06:09 | Outpatient (REF) | payer MEDICARE, MEDICAID, SELFPAY | END 2024-02-02 06:10 | disposition home or self-care (01) | LOC: CF 06:09 | PROVIDERS: Visit Provider Internal Medicine | DX: M53.3 Sacrococcygeal disorders, not elsewhere classified (principal) | CPT/HCPCS: 27096; J2003; J2795; J3301 ==

== ENCOUNTER 2024-02-02 09:18 | Outpatient (AMB) | payer MEDICARE, MEDICAID, SELFPAY ==
--- NOTE | 2024-02-02 09:27 | A.OFFVIS_ITS ---
Vital Signs 02/02/24 09:28 02/02/24 10:06 BP 140/74 H 173/81 H Blood Pressure Location Lt brachial Lt brachial Position Sitting Sitting Pulse 78 77 Pulse Source Pulse Oximeter Pulse Oximeter Pulse Oximetry (%) 95 96 Oxygen Delivery Method Room Air Room Air Intake Visit Reasons: right theraputic SIJ inj Allergies duloxetine [Cymbalta] Allergy (Intermediate, Verified 12/30/23 10:02) spasms oxycodone [From PERCOCET] Allergy (Intermediate, Verified 12/30/23 10:02) sensitivity, dizziness HPI HPI right theraputic SIJ inj: Details: Patient presents for scheduled procedure. Denies any recent cough, cold, infection, fever or other significant changes in medical history since last office visit. [facility], [facility] Medical History (Updated 12/30/23 @ 10:19 by SAMRA Strong) Sacroiliac joint pain Bilateral occipital neuralgia URI (upper respiratory infection) Urinary tract infection Otitis media of left ear Sinusitis Osteopenia Mild cognitive disorder Lumbar facet arthropathy Osteoarthritis of left hip Lower thoracic back pain Mitral valve prolapse Venous insufficiency RLS (restless legs syndrome) Fibromyalgia Essential hypertension Hyperlipidemia LDL goal <70 Obesity, Class I, BMI 30-34.9 Type 2 diabetes mellitus with diabetic polyneuropathy Endogenous depression Restrictive lung disease Obesity (BMI 30-39.9) Dyspnea on exertion Asthma Hypercholesterolemia Surgical History History of colonoscopy History of back surgery Hx of repair of rotator cuff History of hand surgery Status post surgical removal of malignant neoplasm of skin History of lumbar surgery History of bone graft History of cholecystectomy History of total abdominal hysterectomy and bilateral salpingo-oophorectomy H/O total cystectomy History of cervical spinal surgery History of shoulder surgery History of cataract surgery History of hysterectomy Family History Father Lung cancer Diabetes Mother Colon cancer Diabetes Maternal Grandmother Breast cancer Brother S/P triple vessel bypass Diabetes Family/Other Hypertension Hyperlipidemia Social History Household Members: None Housing: House Are you a primary career consultant to a significant other at home: No Do you presently have visiting nurse or other home services: Yes (L[employer]MER 3x week) Alcohol intake: current Alcohol intake frequency: holidays/special occasions only Patient Tobacco Use Status: Never used Tobacco e-Cigarette/Vaping Use: Never Used Second Hand Smoke Exposure: No service: No Current occupational status: disabled Cognitive needs: Yes Hearing needs: Yes (hearing aides) Vision needs: Yes (Reading glasses) Physical Exam Vital Signs: Last Vital Signs Pulse 77 02/02/24 10:06 BP 173/81 H 02/02/24 10:06 Pulse Ox 96 02/02/24 10:06 Oxygen Delivery Method Room Air 02/02/24 10:06 Office Procedures Joint Injection/Aspiration Joint Injection/Aspiration Details: Therapeutic Sacroiliac Joint Injection, Right The procedure, its benefits, and its risks were explained and written informed consent was obtained from the patient. Immediately prior to starting the procedure, a time-out safety check was conducted. The patient's identification, procedure name, procedure site, and procedure laterality were confirmed with the patient. ? Patient was placed prone on the fluoroscopy table and the lumbosacral area was prepped using ChloraPrep and draped with sterile drapein standard fashion. The C-arm was rotated in a contralateral oblique fashion until the medial border of the iliac crest no longer foreshadowed the posterior sacroiliac joint line. The skin and subcutaneous tissue was anesthetized using 1 mL of 0.75% plain lidocaine with 1.5-inch 25-gauge needle in the middle region of the joint line.? A 3.5-inch 22-gauge spinal needle with small bend on the tip was slowly advanced towards the joint line, coaxial to the x-ray beam. Once bony content was obtained, the needle was easily slid into the intra-articular space.? Intra- articular needle position was confirmed using lateral fluoroscopy.? A total volume of 2.5mL of solution containing 40 mg triamcinolone and rest 0.5% of ropivacaine was injected intra-articularly. The stylet was reinserted and needle was removed. The patient tolerated the procedure well. Patient denied any lower extremity weakness or numbness. Patient was observed for 30 min and was discharged after fulfilling the standard discharge criteria. Coding 70706 - Sacroiliac Procedure code (CPT) selection complete Assessment & Plan Assessment & Plan (1) Sacroiliac joint pain: Code(s): M53.3 - Sacrococcygeal disorders, not elsewhere classified Category: Medical Plan Patient is status post right therapeutic sacroiliac joint injection. Patient tolerated procedure well and was discharged home in stable condition with discharge instructions. All questions were answered. We will follow-up via telephone or in clinic to assess response to therapy. A follow-up appointment was made during today's visit. Orders: Orders FL guidance in treatment room Today M53.3 - Sacrococcygeal disorders, not elsewhere classified Coding Level of Care Code Procedure Only Diagnoses Sacroiliac joint pain M53.3 CPT Codes Coding - Joint 9: 96637 - Sacroiliac ([id number])
[2024-02-02 09:28] VITALS: BP 140/74; PULSE 78; O2SAT 95
[2024-02-02 10:06] VITALS: BP 173/81; PULSE 77; O2SAT 96
== END 2024-02-02 10:08 | disposition home or self-care (01) ==
LOC: HO.PMCPRC 09:18
PROVIDERS: PCP Nurse Practitioner Family; Visit Provider Internal Medicine
DX: M53.3 Sacrococcygeal disorders, not elsewhere classified (principal)
CPT/HCPCS: 27096

== ENCOUNTER 2024-02-27 10:12 | Outpatient (AMB) | payer MEDICARE, MEDICAID, SELFPAY ==
--- NOTE | 2024-02-27 10:14 | A.OFFVIS_ITS ---
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 Heart. Patient reports ongoing 80-85% pain relief since injection with significant improvement in her daily activities and functioning, mobility and sleep. She reports increase in her mid and lower back pain especially after COVID illness and excessive coughing 3 months ago. Denies any recent cough, cold, infection, fever, bladder or bowel dysfunction, saddle anesthesia or other significant changes in medical history since last office visit. Past Procedures: 02/02/24: Right Therapeutic SIJ [id number]% ongoing pain relief 09/03/22:Bilateral C2/C3/C4 Therapeutic Medial Branch Blocks and Bilateral Lesser and Greater Occipital Nerve Block-70% pain relief 06/17/21: Bilateral L3 L4 DR L5 RFA-70% pain relief >2 years PRIOR: Patient presents today for follow up for chronic neck pain with right hand numbness and tingling. She reports upcoming right carpal tunnel release surgery in December by Dr. Wylie. 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 Patient requests to repeat cervical therapeutic MBBs injections and occipital nerve blocks. Her last injections were on 09/03/22 which provided her less than one month pain relief which she still appreciates. She reports these injections allowed her to be less symptomatic and more functional for past 3 months. She is planning to wean herself off gabapentin due to weight gain and is currently working with Nutri[employer] provider. Patient has TENS unit but has not used it for a while. She is asking for something stronger than gabapentin. I have informed patient that our office does not offer opioid prescribing at this time. Patient also is interested in repeating SCS trial which she had in the past but was told if she reconsiders SCS trial, this has to be performed by neurosurgeon due to extensive scar tissue. Patient reports she will follow up with [facility] on this. Discussed behavioral assessment prior to SCS trial. Denies any recent cough, cold, infection, fever or other significant changes in medical history since last office visit. Patient denies any bladder or bowel incontinence or saddle anesthesia. PRIOR: Patient presents today via telehealth encounter to discuss response to gabapentin and potential increase in medication. Center came to the office today to assess the results of the bilateral medial branch blocks C2-C3 C4 as well as bilateral lesser and greater occipital nerve block which was performed on 09/03/2022. She reported 70% pain improvement for the past months since injection. She reported her level pick of pain today 08/02. She reports better mobility and less headache. She reports better activities of daily living. She Is starting physical therapy at this time. I explained her limitations about st eroid injections. I explained to her that we will not be able to repeat those injections more often than once in 3 months. I explained to her that it will be better yet if her injection will be further apart. When her pain will come back she will give us a call and we will schedule her for repeat of the procedure. PRIOR: Patient is a pleasant 66 years old female, right hand dominant with a history of anterior cervical fusion C5-C7 presents today with worsening neck pain that radiates to both of her shoulders, arms and hands. Patient was previously seen in this office by Any for lower back pain with the last visit in June 2021. 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 Movements, walking, sitting, standing and weather changes exacerbate her pain. Patient reports previous treatments of neck pain with physical therapy, massage, acupuncture, TENS unit, NSAIDs, muscle relaxants, heat therapy, activity modifications and rest with minimal pain relief. Pain is described as constant and progressively worsening with average pain intensity rated at 8/10. Pain presents with limited range of motion of her cervical spine, worse with limited extension than flexion and significant muscle tenderness throughout bilateral trapezius muscles. Her last follow up with neurosurgeon's office was in 2020. Patient also reports previous back surgery. Patient denies any fever, weight loss, visual disturbances, shortness of breaths, chest pain, gait imbalance, bladder or bowel incontinence or saddle anesthesia. PRIOR 07/17/21 Any CABRALES: Today's visit was conducted via telephone to review the effectiveness of bilateral L3 L4 DR L5 radiofrequency ablation performed on 06/17/2021 by . Addie reported increase in pain initially but over the past 2 weeks she has noticed 70% pain relief. She is requesting a referral to physical therapy for core strengthening as she feels she would benefit greatly after her procedure. Of note, she does report an increase in right-sided neck pain as well as numbness in all digits of the right hand. She recently underwent a tendon release procedure the right at [facility] and is unsure if this numbness is related. I encouraged her to follow-up with her surgeon to rule out any complications due to surgery. [facility] Medical History Sacroiliac joint pain Bilateral occipital neuralgia URI (upper respiratory infection) Urinary tract infection Otitis media of left ear Sinusitis Osteopenia Mild cognitive disorder Lumbar facet arthropathy Osteoarthritis of left hip Lower thoracic back pain Mitral valve prolapse Venous insufficiency RLS (restless legs syndrome) Fibromyalgia Essential hypertension Hyperlipidemia LDL goal <70 Obesity, Class I, BMI 30-34.9 Type 2 diabetes mellitus with diabetic polyneuropathy Endogenous depression Restrictive lung disease Obesity (BMI 30-39.9) Dyspnea on exertion Asthma Hypercholesterolemia Surgical History History of colonoscopy History of back surgery Hx of repair of rotator cuff History of hand surgery Status post surgical removal of malignant neoplasm of skin History of lumbar surgery History of bone graft History of cholecystectomy History of total abdominal hysterectomy and bilateral salpingo-oophorectomy H/O total cystectomy History of cervical spinal surgery History of shoulder surgery History of cataract surgery History of hysterectomy Family History Father Lung cancer Diabetes Mother Colon cancer Diabetes Maternal Grandmother Breast cancer Brother S/P triple vessel bypass Diabetes Family/Other Hypertension Hyperlipidemia Social History Household Members: None Housing: House Are you a primary care companion to a significant other at home: No Do you presently have visiting nurse or other home services: Yes ([employer] 3x week) Alcohol intake: current Alcohol intake frequency: holidays/special occasions only Patient Tobacco Use Status: Never used Tobacco e-Cigarette/Vaping Use: Never Used Second Hand Smoke Exposure: No service: No Current occupational status: disabled Cognitive needs: Yes Hearing needs: Yes (hearing aides) Vision needs: Yes (Reading glasses) Review of Systems Const All systems reviewed & are unremarkable except as noted in HPI and below Physical Exam Vital Signs: Last Vital Signs Pulse 71 02/27/24 10:17 BP 142/82 H 02/27/24 10:17 Pulse Ox 98 02/27/24 10:17 Oxygen Delivery Method Room Air 02/27/24 10:17 BMI result Body Mass Index 33.2 General: Appears afebrile. Alert and oriented. Mood and affect appropriate. Follows and participates in conversation appropriately. Respiratory effort is unlabored. No nasal discharge. Able to transition from sit to stand unassisted. Ambulates with bilaterally normal heel strike and toe off. General: Yes no CVA tenderness Back/Spine/Pelvis Other: Limited lumbar ROM due to pain. Lumbar extension and axial rotations reproduce mild pain. Mild pain with lumbar flexion or bending down. Demonstrates 5/5 strength of quadriceps bilaterally as well as flexion/dorsiflexion of bilateral feet against resistance. 2+ pedal pulses bilaterally. No midline tenderness in the thoracic or lumbar spine. Back: no CVA tenderness Cervical Spine: cervical ROM normal, Cervical spine scars present, No Cervical spine tenderness and No step off deformity Thoracic/Lumbar Spine: thoracic and lumbar spine normal to inspection, Thoracic/lumbar spine scar(s), Lasegue's sign negative, straight leg raise negative bilaterally, pain with thoraco-lumbar ROM, paraspinal muscle tenderness, thoraco-lumbar ROM limited, No thoracic spinal tenderness and lumbar spinal tenderness (L4-S1) Pelvis: no buttock tenderness and no sciatic notch tenderness Sacroiliac joints: on the right tender to palpation and on the left nontender Results Reviewed Results Reviewed: CT abdomen pelvis wo IV con 01/19/22 OSSEOUS STRUCTURES: There are degenerative changes of the spine. Spinal stimulator has been removed. MM/XR DEXA axial skeleton 08/12/21 IMPRESSION: 1. DIAGNOSIS: Osteopenia based on the lowest T-score value of -1.7 in the lumbar spine applying World Health Organization criteria. MR LUMBAR SPINE WITHOUT AND WITH CONTRAST 12/02/2017 CLINICAL INFORMATION: Bilateral leg pain. COMPARISON: X-ray lumbar spine from 09/14/2016. FINDINGS: VERTEBRAL BODIES AND PARASPINAL STRUCTURES: Postsurgical changes are present in the subcutaneous tissues of the patient's mid lower back at the site of a previous neurostimulator device. There is a very mild rightward curvature of the mid lumbar spine. An intraosseous hemangioma is noted within the L3 vertebral body and the left L1 pedicle. The marrow signal is otherwise within normal limits. There are no compression fractures or subluxations. The imaged bony pelvis appears normal. CONUS MEDULLARIS AND CAUDA EQUINA: Normal, terminating at the level of L1. No lower cord signal abnormality is seen. The cauda equina nerve roots appear normal. There is no abnormal leptomeningeal or cord enhancement. There is a small fatty filum. SPINAL LEVELS: L1-L2: No disc pathology, central canal stenosis, or foraminal narrowing. Mild facet arthropathy. L2-L3: Mild right lateralized disc bulge without significant foraminal encroachment. No central canal stenosis. L3-L4: [id number] hypertrophic facet arthropathy present with a minimal annular bulge. Patent foramina. Mild central canal stenosis. L4-L5: Diffuse disc bulge and moderate facet arthropathy with chronic postlaminectomy changes on the right side. Mild central canal stenosis. No foraminal narrowing. L5-S1: Chronic postlaminectomy changes on the left side with hypertrophic facet arthropathy. No disc protrusion. Very mild annular bulge. Patent foramina. IMPRESSION: Chronic postlaminectomy changes in the lower lumbar spine without evidence of a residual or recurrent disc protrusion. Minimal annular bulges without foraminal narrowing. Mild central canal stenosis at L3-L4 and L4-L5 with facet arthropathy. Assessment & Plan Assessment & Plan (1) Postlaminectomy syndrome, lumbar: Code(s): M96.1 - Postlaminectomy syndrome, not elsewhere classified Category: Medical (2) Thoracic back pain: Code(s): M54.6 - Pain in thoracic spine Category: Medical (3) Sacroiliac joint pain: Code(s): M53.3 - Sacrococcygeal disorders, not elsewhere classified Category: Medical (4) Facet arthropathy, multilevel: Code(s): M47.819 - Spondylosis without myelopathy or radiculopathy, site unspecified Category: Medical Plan Patient is one month status post right therapeutic SIJ injection with significant improvement in her ADLs, functioning and mobility. She will continue to monitor her symptoms and notify our office when left SIJ pain returns to baseline. Briefly discussed SI joint fusion, PNS and RFA procedures for a longer term pain relief. We will obtain thoracic and lumbar spine to assess degree of degenerative changes, any subluxation, listhesis, compression fractures or pars defects to follow up on recent increase in her mid and lower spine pain since recent COVID illness and cough 3 months ago. All questions and concerns have been answered and patient agreed with the plan. Follow up for xray results and sooner as needed. Orders: Orders XR lumbar spine 4V min Today M54.6 - Pain in thoracic spine, M96.1 - Postlaminectomy syndrome, not elsewhere classified XR thoracic spine 2V Today M54.6 - Pain in thoracic spine Coding Level of Care Code Est Pt Level 4 (32582) Complex EM visit Add On G2211 Diagnoses Postlaminectomy syndrome, lumbar M96.1 Thoracic back pain M54.6 Sacroiliac joint pain M53.3 Facet arthropathy, multilevel M47.819
[2024-02-27 10:17] VITALS: BP 142/82; PULSE 71; O2SAT 98; BMI 33.2
== END 2024-02-27 10:36 | disposition home or self-care (01) ==
LOC: HO.PMC 10:12
PROVIDERS: PCP Nurse Practitioner Family; Visit Provider Nurse Practitioner Family
DX: M96.1 Postlaminectomy syndrome, not elsewhere classified (principal); M54.6 Pain in thoracic spine; M53.3 Sacrococcygeal disorders, not elsewhere classified; M47.819 Spondylosis without myelopathy or radiculopathy, site unspecified
CPT/HCPCS: 99214; G2211

== ENCOUNTER → 2024-02-27 10:12 | Outpatient (BNVA) | payer MEDICARE, MEDICAID, SELFPAY | PROVIDERS: PCP Nurse Practitioner Family; Visit Provider Nurse Practitioner Family | DX: M96.1 Postlaminectomy syndrome, not elsewhere classified (principal); M54.6 Pain in thoracic spine; M53.3 Sacrococcygeal disorders, not elsewhere classified; M47.819 Spondylosis without myelopathy or radiculopathy, site unspecified | CPT/HCPCS: 99212 ==

== ENCOUNTER 2024-12-20 10:05 | Outpatient (AMB) | payer MEDICARE, MEDICAID, SELFPAY ==
--- NOTE | 2024-12-20 10:24 | MHC.OFFVIS ---
Vital Signs 12/20/24 10:26 Height 5 ft 6 in Weight 202 lb 6 oz BMI 32.7 BP 175/79 H Blood Pressure Location Rt brachial Position Sitting Pulse 69 Pulse Source Pulse Oximeter Pulse Oximetry (%) 99 Oxygen Delivery Method Room Air Intake Visit Reasons: Back pain Intake Note: Pain today 08/02 Supervisor Advertising Dispatch Clerks Required: No Allergies duloxetine (Cymbalta) Allergy (Intermediate, Verified 12/20/24 10:28) spasms oxycodone (From PERCOCET) Allergy (Intermediate, Verified 12/20/24 10:28) sensitivity, dizziness HPI Comments Details: The patient is a 69-year-old female presenting with chronic lower back pain, left knee pain, and neck pain. The chronic lower back pain has been persistent, with the patient reporting that the pain radiates to the left leg, specifically the buttock and back of the leg, consistent with an L5-S1 distribution. The patient has a history of lumbar radiofrequency ablation (RFA) performed three years ago, which provided pain relief for two years. She also underwent a sacroiliac (SI) joint injection on the right side last year, which was effective. The left knee pain is a result of a bone grafting procedure performed 40 years ago. Recently, the patient experienced a snapping sensation while walking, leading to severe pain and difficulty standing or bending the knee. The neck pain is described as a burning sensation, particularly when engaging in activities such as cooking. The patient reports that this is a new development, as she previously did not experience significant neck pain. The patient has a history of chronic left-sided radiculopathy post-laminectomy and has undergone multiple surgeries on the left side, with no root damage reported. She also has a history of using a spinal cord stimulator, which was removed by another provider. Patient reports she used to walk up to 2 miles per day and was able to loose 20 lbs but more recently she is not able to walk long distances and has gained 2 lbs. She states her diabetes is well-controlled, with a recent A1C of 5. She has been taking gabapentin 100 mg BID and is interested to increase it to 200 mg BID. Denies any recent cough, cold, infection, fever or any significant changes in medical history since last office visit. PRIOR: atruby presents today to assess response to Right Therapeutic SIJ injection on 02/02/[address] Heart. Patient reports ongoing 80-85% pain relief since injection with significant improvement in her daily activities and functioning, mobility and sleep. She reports increase in her mid and lower back pain especially after COVID illness and excessive coughing 3 months ago. Denies any recent cough, cold, infection, fever, bladder or bowel dysfunction, saddle anesthesia or other significant changes in medical history since last office visit. Past Procedures: 02/02/24: Right Therapeutic SIJ pukprnans-45-64% ongoing pain relief 09/03/22:Bilateral C2/C3/C4 Therapeutic Medial Branch Blocks and Bilateral Lesser and Greater Occipital Nerve Block-70% pain relief 06/17/21: Bilateral L3 L4 DR L5 RFA-70% pain relief >2 years PRIOR: Patient presents today for follow up for chronic neck pain with right hand numbness and tingling. She reports upcoming right carpal tunnel release surgery in December by Dr. Wylie. 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 Patient requests to repeat cervical therapeutic MBBs injections and occipital nerve blocks. Her last injections were on 09/03/22 which provided her less than one month pain relief which she still appreciates. She reports these injections allowed her to be less symptomatic and more functional for past 3 months. She is planning to wean herself off gabapentin due to weight gain and is currently working with Nutriotionist provider. Patient has TENS unit but has not used it for a while. She is asking for something stronger than gabapentin. I have informed patient that our office does not offer opioid prescribing at this time. Patient also is interested in repeating SCS trial which she had in the past but was told if she reconsiders SCS trial, this has to be performed by neurosurgeon due to extensive scar tissue. Patient reports she will follow up with [facility] on this. Discussed behavioral assessment prior to SCS trial. Denies any recent cough, cold, infection, fever or other significant changes in medical history since last office visit. Patient denies any bladder or bowel incontinence or saddle anesthesia. PRIOR: Patient presents today via telehealth encounter to discuss response to gabapentin and potential increase in medication. Center came to the office today to assess the results of the bilateral medial branch blocks C2-C3 C4 as well as bilateral lesser and greater occipital nerve block which was performed on 09/03/2022. She reported 70% pain improvement for the past months since injection. She reported her level pick of pain today 4/10. She reports better mobility and less headache. She reports better activities of daily living. She Is starting physical therapy at this time. I explained her limitations about steroid injections. I explained to her that we will not be able to repeat those injections more often than once in 3 months. I explained to her that it will be better yet if her injection will be further apart. When her pain will come back she will give us a call and we will schedule her for repeat of the procedure. PRIOR: Patient is a pleasant 66 years old female, right hand dominant with a history of anterior cervical fusion C5-C7 presents today with worsening neck pain that radiates to both of her shoulders, arms and hands. Patient was previously seen in this office by Any for lower back pain with the last visit in June 2021. 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 Movements, walking, sitting, standing and weather changes exacerbate her pain. Patient reports previous treatments of neck pain with physical therapy, massage, acupuncture, TENS unit, NSAIDs, muscle relaxants, heat therapy, activity modifications and rest with minimal pain relief. Pain is described as constant and progressively worsening with average pain intensity rated at 8/10. Pain presents with limited range of motion of her cervical spine, worse with limited extension than flexion and significant muscle tenderness throughout bilateral trapezius muscles. Her last follow up with neurosurgeon's office was in 2020. Patient also reports previous back surgery. Patient denies any fever, weight loss, visual disturbances, shortness of breaths, chest pain, gait imbalance, bladder or bowel incontinence or saddle anesthesia. PRIOR 07/17/21 Any UNARMED SECURITY OFFICER: Today's visit was conducted via telephone to review the effectiveness of bilateral L3 L4 DR L5 radiofrequency ablation performed on 06/17/2021 by . Addie reported increase in pain initially but over the past 2 weeks she has noticed 70% pain relief. She is requesting a referral to physical therapy for core strengthening as she feels she would benefit greatly after her procedure. Of note, she does report an increase in right-sided neck pain as well as numbness in all digits of the right hand. She recently underwent a tendon release procedure the right at [facility] and is unsure if this numbness is related. I encouraged her to follow-up with her surgeon to rule out any complications due to surgery. 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 Restrictive lung disease Obesity (BMI 30-39.9) Dyspnea on exertion Asthma Hypercholesterolemia Surgical History History of colonoscopy History of back surgery Hx of repair of rotator cuff History of hand surgery Status post surgical removal of malignant neoplasm of skin History of lumbar surgery History of bone graft History of cholecystectomy History of total abdominal hysterectomy and bilateral salpingo-oophorectomy H/O total cystectomy History of cervical spinal surgery History of shoulder surgery History of cataract surgery History of hysterectomy Family History Father Lung cancer Diabetes Mother Colon cancer Diabetes Maternal Grandmother Breast cancer Brother S/P triple vessel bypass Diabetes Family/Other Hypertension Hyperlipidemia Social History Household Members: None Housing: House Are you a primary managed care manager to a significant other at home: No Do you presently have visiting nurse or other home services: Yes ([employer]OWERHOU[employer] 3x week) Alcohol intake: current Alcohol intake frequency: holidays/special occasions only Patient Tobacco Use Status: Never used Tobacco e-Cigarette/Vaping Use: Never Used Second Hand Smoke Exposure: No service: No Current occupational status: disabled Cognitive needs: Yes Hearing needs: Yes (hearing aides) Vision needs: Yes (Reading glasses) Review of Systems Const Details: - Musculoskeletal: Reports chronic lower back pain, left knee pain, and neck pain - Neurological: Reports left-sided radiculopathy, denies new neurological deficits - Endocrine: Denies issues with diabetes, reports well-controlled with A1c of 5 All systems reviewed & are unremarkable except as noted in HPI and below Physical Exam Vital Signs: Last Vital Signs Pulse 69 12/20/24 10:26 BP 175/79 H 12/20/24 10:26 Pulse Ox 99 12/20/24 10:26 Oxygen Delivery Method Room Air 12/20/24 10:26 BMI result Body Mass Index 32.7 General: Appears afebrile. Alert and oriented. Mood and affect appropriate. Follows and participates in conversation appropriately. Respiratory effort is unlabored. No cough. Able to transition from sit to stand unassisted. Ambulates with bilaterally normal heel strike and toe off. General: Yes no CVA tenderness Back/Spine/Pelvis Other: Limited lumbar ROM due to pain. Lumbar extension and axial rotations reproduce mild pain. Mild pain with lumbar flexion or bending down. Demonstrates 5/5 strength of quadriceps bilaterally as well as flexion/dorsiflexion of bilateral feet against resistance. 2+ pedal pulses bilaterally. No midline tenderness in the thoracic or lumbar spine. Back: no CVA tenderness Cervical Spine: cervical ROM normal, pain with cervical ROM, Cervical spine scars present, No Cervical spine tenderness and No step off deformity Thoracic/Lumbar Spine: thoracic and lumbar spine normal to inspection, Thoracic/lumbar spine scar(s), Lasegue's sign positive on the left and localized, pain with thoraco-lumbar ROM, paraspinal muscle tenderness, thoraco-lumbar ROM limited, No thoracic spinal tenderness and lumbar spinal tenderness (L4-S1) Pelvis: buttock tenderness on the left Sacroiliac joints: bilaterally tender to palpation Extrem General: Yes capillary refill normal, Yes no clubbing, cyanosis or edema and Yes no calf tenderness Results Reviewed Results Reviewed: CT abdomen pelvis wo IV con 01/19/22 OSSEOUS STRUCTURES: There are degenerative changes of the spine. Spinal stimulator has been removed. MM/XR DEXA axial skeleton 08/12/21 IMPRESSION: 1. DIAGNOSIS: Osteopenia based on the lowest T-score value of -1.7 in the lumbar spine applying World Health Organization criteria. MR LUMBAR SPINE WITHOUT AND WITH CONTRAST 12/02/2017 CLINICAL INFORMATION: Bilateral leg pain. COMPARISON: X-ray lumbar spine from 09/14/2016. FINDINGS: VERTEBRAL BODIES AND PARASPINAL STRUCTURES: Postsurgical changes are present in the subcutaneous tissues of the patient's mid lower back at the site of a previous neurostimulator device. There is a very mild rightward curvature of the mid lumbar spine. An intraosseous hemangioma is noted within the L3 vertebral body and the left L1 pedicle. The marrow signal is otherwise within normal limits. There are no compression fractures or subluxations. The imaged bony pelvis appears normal. CONUS MEDULLARIS AND CAUDA EQUINA: Normal, terminating at the level of L1. No lower cord signal abnormality is seen. The cauda equina nerve roots appear normal. There is no abnormal leptomeningeal or cord enhancement. There is a small fatty filum. SPINAL LEVELS: L1-L2: No disc pathology, central canal stenosis, or foraminal narrowing. Mild facet arthropathy. L2-L3: Mild right lateralized disc bulge without significant foraminal encroachment. No central canal stenosis. L3-L4: Lzfo-ay-cexlkewg hypertrophic facet arthropathy present with a minimal annular bulge. Patent foramina. Mild central canal stenosis. L4-L5: Diffuse disc bulge and moderate facet arthropathy with chronic postlaminectomy changes on the right side. Mild central canal stenosis. No foraminal narrowing. L5-S1: Chronic postlaminectomy changes on the left side with hypertrophic facet arthropathy. No disc protrusion. Very mild annular bulge. Patent foramina. IMPRESSION: Chronic postlaminectomy changes in the lower lumbar spine without evidence of a residual or recurrent disc protrusion. Minimal annular bulges without foraminal narrowing. Mild central canal stenosis at L3-L4 and L4-L5 with facet arthropathy. Assessment & Plan Assessment & Plan (1) Sacroiliac joint pain: Code(s): M53.3 - Sacrococcygeal disorders, not elsewhere classified Category: Medical (2) Postlaminectomy syndrome, lumbar: Code(s): M96.1 - Postlaminectomy syndrome, not elsewhere classified Category: Medical (3) Left lumbar radiculopathy: Code(s): M54.16 - Radiculopathy, lumbar region Category: Medical (4) Facet arthropathy, multilevel: Code(s): M47.819 - Spondylosis without myelopathy or radiculopathy, site unspecified Category: Medical Plan During the visit, we discussed the management of chronic lower back pain, including updating lumbar spine MRI to assess for neural integrity and compression and follow up on previous MRI findings. We also reviewed the patient's current use of gabapentin and agreed to adjust the dosage to 200 mg twice daily to better manage her pain. The patient was advised to follow up with her Orthopedic surgeon regarding the left knee pain, especially given the recent exacerbation of symptoms. All questions and concerns have been answered and patient agreed with the treatment plan. Follow up for MRI results and sooner as needed. Patient was informed and verbally consented to the use of an ambient scribe for clinic note documentation during this visit. Orders: Orders MR lumbar spine wo con 12/20/24 M47.819 - Spondylosis without myelopathy or radiculopathy, site unspecified, M54.16 - Radiculopathy, lumbar region, M96.1 - Postlaminectomy syndrome, not elsewhere classified Medications: Changed From gabapentin 100 mg PO TID 30 days 90 caps 1RF pain M53.3 - Sacrococcygeal disorders, not elsewhere classified, M54.16 - Radiculopathy, lumbar region, M96.1 - Postlaminectomy syndrome, not elsewhere classified To gabapentin Take half a tab twice daily. 400 mg PO Q12H 30 days 30 tabs 1RF pain M53.3 - Sacrococcygeal disorders, not elsewhere classified, M54.16 - Radiculopathy, lumbar region, M96.1 - Postlaminectomy syndrome, not elsewhere classified From gabapentin Take half a tab twice daily. 400 mg PO Q12H 30 days 30 tabs 1RF pain M53.3 - Sacrococcygeal disorders, not elsewhere classified, M96.1 - Postlaminectomy syndrome, not elsewhere classified To gabapentin 200 mg (2 x 100 mg) PO BID 120 caps 0RF pain 30 days M53.3 - Sacrococcygeal disorders, not elsewhere classified, M96.1 - Postlaminectomy syndrome, not elsewhere classified Coding Level of Care Code Est Pt Level 4 (82986) Complex EM visit Add On G2211 Diagnoses Sacroiliac joint pain M53.3 Postlaminectomy syndrome, lumbar M96.1 Left lumbar radiculopathy M54.16 Facet arthropathy, multilevel M47.819
[2024-12-20 10:26] VITALS: BP 175/79; PULSE 69; O2SAT 99; BMI 32.7
--- OUTSIDE RECORDS SUMMARY | 2024-12-20 11:22 | XMS_ITS | Encounter Summary ---
Author Organization [facility] Address [address] [address] Phone Care Team Providers Care Manager Software Development Name Role Phone Delmar Victoria DO Primary Care Provider [phone] Reason for Referral * MRI/CAT Scan - Closed Specialty Diagnoses / Procedures Referred By Mauro arechiga Referred To Contact Radiology Diagnoses Chest pain, unspecified type Procedures NC Myocardial Perfusion Stress Single NC Myocardial Perfusion Pharmacologic Stress Multiple Rikki Thapa MD Phone: tel: fax: mailto: Referral ID Status Reason Start Date Expiration Date Visits Re quested Visits Authorized [id number] Closed 07/05/2018 07/05/2019 1 1 Encounter Details Date Type Department Care Team (Latest Contact Info) Description 07/27/2018 Ancillary Orders [facility] [address] [place] [address] 3rd [facility], [address] [place] [id number] Rikki Thapa MD [address] [place] [address], [address] [phone] [email or web address] Chest pain, unspecified type Social History Tobacco Use Types Packs/Day Years Used Date Smoking Tobacco: Never Assessed Comments Unknown Sex and Gender Information Value Date Recorded Sex Assigned at Not on file Legal Sex Female 1:23 PM EDT Gender Identity Not on file Sexual Orientation Not on file documented as of this encounter Plan of Treatment Not on file documented as of this encounter Results * NC Myocardial Perfusion Stress Single (07/27/2018 10:53 AM EDT) Nuc Stress EF 60 % LV Systolic Volume Index 41 mL/m2 LV Diastolic Volume Index 101 mL/m2 Anatomical Region Laterality Modality Heart Ultrasound Narrative 07/28/2018 10:00 AM EDT Normal study. There is no evidence of myocardial infarction or ischemia. Normal LV size and function with no regional wall motion abnormalities. Very low likelihood of hemodynamically significant coronary artery disease. Low risk study for myocardial events or cardiac in the next two years. Nuclear Study Quality TYPE OF STUDY: Myocardial Perfusion Imaging after Regadenoson protocol with gated SPECT. PROTOCOL USED: Regadenoson stress protocol only in the supine and prone position. Images were obtained in gated tomographic technique. Images were processed in SPECT format, reconstructed tomographically and compared [id number] in short axis, horizontal long axis and vertical long axis. DOSE: Technetium 99m Sestamibi 12.2 mCi injected intravenously during stress on 07/27/2018 with post injection scan time of 45 minutes. Overall image quality is good. Breast attenuation artifact is present. Study was gated successfully. Response to Stress BMI: 32.29 Patient was unable to walk on TM due to chronic back pain. The patient was infused with 0.4 mg of Regadenoson (Lexiscan) intravenously over 10 seconds followed immediately by the injection of the Tc99m Sestamibi. Patient tolerated infusion without complications. Test terminated due to completion of protocol. SUMMARY: 1. RESTING ECG: sinus rhythm HR 76 bpm with occasional isolated PVCs. 2. EXERCISE ECG: No ECG changes that meet criteria for ischemia with Lexiscan injection. 3. SYMPTOMS: patient reported 5/10 central chest pressure with Lexiscan injection that resolved after caffeine intake in late recovery. 4. PHYSIOLOGY: Appropriate physiologic response to Lexiscan injection. Resting HR of 71 bpm yesica to a max HR of 93 bpm. Vital signs stable and returned to baseline prior to discharge from the lab. 5. ARRHYTHMIA: frequent PVCs of at least 5 different morphologies, occasional ventricular bigeminy and trigeminy, and a few brief runs of accelerated idiopathic ventricular rhythm at about 90 bpm. CONCLUSION: Abnormal ECG portion of pharmacologic nuclear stress test. Patient reported symptoms concerning for angina without ECG changes suggestive of ischemia, however there was a significant increase in ventricular ectopy with PVCs of multiple morphologies and a few runs of AIVR. Patient tolerated Lexiscan injection without complication. Nuclear images and report to follow. Keely Mary PA-C . Stress Function Comments Post-stress ejection fraction was 60%. Stress end diastolic index: 101 mL/m2. Stress end systolic index: 41 mL/m2. Perfusion Scoring Stress Summed Score: 0 Percent Normal: 0.00% The left ventricular perfusion is normal. Procedure Note Erik Lozano MD / Rikki Thapa MD - 07/28/2018 Normal study. There is no evidence of myocardial infarction or ischemia. Normal LV size and function with no regional wall motion abnormalities. Very low likelihood of hemodynamically significant coronary arterydisease. Low risk study for myocardial events or cardiac in the next twoyears. us Rikki Thapa MD CV NM CARDIAC Final Resul t documented in this encounter Visit Diagnoses Diagnosis Chest pain, unspecified type Chest pain, unspecified type documented in this encounter Care Teams Manager Software Development Relationship Specialty Start Date End Date EsmeDelmar DO PCP - General Family Medicine 07/05/18 documented as of this encounter Additional Source Comments The information contained in this document represents components of the legal health record. It is not the complete legal health record.[facility]
--- OUTSIDE RECORDS SUMMARY | 2024-12-20 11:22 | XMS_ITS | Clinical Summary ---
Author Organization [facility] Address [address] [place] [address] Care Team Providers Care Shrimp Pond Laborer Name Role Phone Rodrigo Holbrook MD Primary Care Provider + Social History Tobacco Use Types Packs/Day Years Used Date Smoking Tobacco: Never Assessed Sex and Gender Information Value Date Recorded Sex Assigned at Not on file Gender Identity Not on file Sexual Orientation Not on file Plan of Treatment Health Maintenance Due Date Last Done Comments Hepatitis C Screening 1955 COVID-19 Vaccine (#1) 05/28/1955 Depression Screening 1966 Preventative Health Evaluation 1972 DTap / Tdap / Td (1 - Tdap) 1973 Colon Cancer Screening (Colonoscopy) 11/26/1999 Breast Cancer Screening (Mammogram) 2004 Shingrix-Zoster Vaccine (1 of 2) 2004 Fall Risk Assessment 11/26/2019 Osteoporosis Screening (DEXA Scan) 11/26/2019 Pneumococcal Vaccine (1 of 1 - PCV) 11/26/2019 Influenza Vaccine (#1) 2024 RSV Adult > 60+ Yrs or Pregn ant (1 - 1-dose 75+ series) 2029 Hepatitis B Vaccines Aged Out No long er eligible based on patient's age to complete this topic RSV Ped < 20 months Aged Out No longe r eligible based on patient's age to complete this topic Care Teams Shrimp Pond Laborer Relationship Specialty Start Date End Date Rodrigo Holbrook MD [address] [place] [address] [address] [place], [place] [id number] PCP - General Internal Medicine 11/15/19
--- OUTSIDE RECORDS SUMMARY | 2024-12-20 11:23 | XMS_ITS | Clinical Summary ---
Author Organization [facility] Address [address] [place] [id number] Phone Care Team Providers Care Medicine Tech Name Role Phone Delmar Victoria DO Primary Care Provider [phone] Social History Tobacco Use Types Packs/Day Years Used Date Smoking Tobacco: Never Assessed Education Answer Date Recorded Are you interested in more education? Not on nava e 08/20/2022 Are you concerned about learning? Not on file 08/20/2022 No 08/20/2022 No 08/20/2022 Digital Access Answer Date Recorded No 09/21/2022 No 09/21/2022 No 09/21/2022 Reliable internet access at home? Not on file 09/21/2022 Device with a working camera? Not on file Comments Unknown Sex and Gender Information Value Date Recorded Sex Assigned at Not on file Legal Sex Female 1:23 PM EDT Gender Identity Not on file Sexual Orientation Not on file Last Filed Vital Signs Vital Sign Reading Time Taken Comments Blood Pressure 140/82 07/27/2018 10:43 AM EDT Pulse - - Temperature - - Respiratory Rate - - Oxygen Saturation 98% 07/27/2018 10:00 AM EDT Inhaled Oxygen Concentration - - Weight - - Height - - Body Mass Index - - Plan of Treatment Health Maintenance Due Date Last Done Comments LIPID PANEL 1954 DEPRESSION SCREENING 1966 HEPATITIS C SCREENING 1972 MAMMOGRAM 1994 PNEUMOCOCCAL VACCINES (50+ years) (1 of 1 - PCV) 2004 ZOSTER VACCINES (1 of 2) 2004 OSTEOPOROSIS SCREENING INITI AL (ONE-TIME) 11/26/2019 COVID-19 VACCINE (2 - 2023-2 5 season) 2023 03/22/2021 INFLUENZA VACCINE (#1) 2024 , 03/05/2019 Adult Td,Tdap Booster 11/28/2028 11/28/2018 , 10/14/2012 RSV VACCINE (1 - 1-dose 75+ series) 2029 COLORECTAL CANCER SCREENING Completed HEPATITIS A VACCINES Aged Out No long er eligible based on patient's age to complete this topic HIB VACCINES Aged Out No longer eligi ble based on patient's age to complete this topic MENINGOCOCCAL VACCINES (ACWY) Aged Out No longer eligible based on patient's age to complete this topic MENINGOCOCCAL VACCINES (B) Aged Out N o longer eligible based on patient's age to complete this topic Medical Devices Not on file Insurance MEDICARE PART A & B [facility] MEDICARE PART A & B [place] & B Member Subscriber Plan / Payer (Ef fective 2012-Present) Name:Addie Nair Member ID:[id number] Relation to Subscriber:Self Name:Addie Nair Subscriber ID:[id number] Payer ID:[id number] Group ID:Not on file Type:Medicare Address: [employer] [address] [place] PART A & [facility] B Member Subscriber Plan / Payer (Ef fective 2012-Present) Name:Addie Nair Member ID:[id number] Relation to Subscriber:Self Name:Addie Nair Subscriber ID:[id number] Payer ID:[id number] Group ID:Not on file Type:Medicare Address: [employer] [address] [place] A [place] Care Teams Medicine Tech Relationship Specialty Start Date End Date Delmar Victoria DO PCP - General Family Medicine 07/05/18 Additional Source Comments The information contained in this document represents components of the legal health record. It is not the complete legal health record.[facility]
--- OUTSIDE RECORDS SUMMARY | 2024-12-20 11:23 | XMS_ITS | Clinical Summary ---
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 DX E11.9 01/03/20 24 Active blood-glucose meter,continuous (FreeStyle Dafne 3 [place]) misc 1 Device by Does not apply route daily. 09/28/19 24 Active blood-glucose sensor (FREESTYLE DAFNE 3 SENSOR MISC) 1 Device by Does not apply route every 14 days. 09/28/19 24 Active blood-glucose meter kit USE TO TEST BLOOD SUGAR TWICE DAILY 09/12/19 24 Active lancets 33 gauge misc Apply 1 Each topically 2 times daily. 09/12/19 24 Active lisinopriL (PRINIVIL,ZESTRI L) 20 mg tablet Take 1 tablet (20 mg total) by mouth 1 (one) time each day. 90 tablet 1 04/25/20 25 Active amLODIPine (NORVASC) 5 mg tablet Take 1 tablet (5 mg total) by mouth 1 (one) time each day. 90 each 1 08/18/19 25 Active estradioL (ESTRACE) 0.01 % (0.1 mg/gram) vaginal cream Insert 2 g into the vagina 2 (two) times a week. 30 g 08/21/19 25 Active Ozempic 1 mg/dose (4 mg/3 mL) injection pen INJECT 1MG SUBCUTANEOUSLY EVERY 7 DAYS 3 mL 5 10/02/19 25 Active cyanocobalamin (VITAMIN B-12) 1,000 mcg tablet Take 1 tablet (1,000 mcg total) by mouth 3 (three) times a week. Active cetirizine HCl (ZYRTEC ORAL) Take by mouth. A ctive BERGAMOT EXTRACT ORAL Take by mouth. Activ e magnesium oxide 400 mg magnesium capsule Take by mouth. Activ e TURMERIC ORAL Take by mouth. A ctive BIOTIN ORAL Take by mouth 3 (three) times a week. Active aspirin 81 mg EC tablet Take 1 tablet (81 mg total) by mouth 1 (one) time each day. Active cholecalciferol (VITAMIN D-3) 5,000 Units tablet Take 1 tablet (5,000 Units total) by mouth 1 (one) time per week. Active Tresiba FlexTouch U-200 200 unit/mL (3 mL) CONCENTRATED injection pen Inject 26-30 Units under the skin at bedtime. 15 mL 2 11/02/19 25 Active gabapentin (NEURONTIN) 100 mg capsule Take 1 capsule (100 mg total) by mouth 1 (one) time each day. 90 capsule 1 11/02/19 25 Active diclofenac (VOLTAREN) 1 % topical gel Apply 4 g topically 2 (two) times a day. Apply 1 Applicator topically 2 times daily as needed (pain). 720 g 1 12/14/19 25 Active diclofenac (VOLTAREN) 1 % topical gel Apply 1 Applicator topically 2 times daily as needed (pain). 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 10/31/2024 Mitral valve prolapse 03/16/2024 Osteopenia 07/14/2023 Assessment & Plan (05/04/2024 12:19 PM EST): Orders: Hemoglobin A1c; Future Comprehensive metabolic panel; Future Microalbumin creatinine urine ratio; Future Multiple atypical skin moles 07/14/2023 Assessment & Plan (05/04/2024 12:19 PM EST): Lumbar radiculopathy 07/14/2023 Cervical radiculopathy 07/14/2023 Anxiety and depression 07/14/2023 Assessment & Plan (05/04/2024 12:19 PM EST): Orders: Hemoglobin A1c; Future Comprehensive metabolic panel; Future Microalbumin creatinine urine ratio; Future Asymptomatic varicose veins of both lower extrem ities 07/14/2023 Diabetes mellitus ([facility] V24, [facility] V28) 01/2024 Assessment & Plan (05/04/2024 12:19 PM EST): Orders: Hemoglobin A1c; Future Comprehensive metabolic panel; Future Microalbumin creatinine urine ratio; Future Heartburn 10/19/2005 Overview (03/08/2024): Upper GI endoscopy performed by Dr. Claude Vieyra February, revealed antral gastritis, biopsies negative for H. pylori, biopsies only positive for reactive gastropathy. Essential hypertension, benign 10/07/2005 Assessment & Plan (05/04/2024 12:19 PM EST): Orders: Hemoglobin A1c; Future Comprehensive metabolic panel; Future Microalbumin creatinine urine ratio; Future Backache 10/07/2005 Overview (03/08/2024): IMO update Assessment & Plan (05/04/2024 12:19 PM EST): Orders: Hemoglobin A1c; Future Comprehensive metabolic panel; Future Microalbumin creatinine urine ratio; Future Mitral valve disorder 05/11/2005 Overview (03/08/2024): IMO update Mixed hyperlipidemia 05/11/2005 Assessment & Plan (05/04/2024 12:19 PM EST): Orders: Hemoglobin A1c; Future Comprehensive metabolic panel; Future Microalbumin creatinine urine ratio; Future Benign neoplasm of ovary 05/11/2005 Encounters Date Type Department Care Team Description 11/01/2024 11:15 AM EDT Office Visit [facility] [place] [facility] [place], [place] [address] [place] [address] Jose C Birch MD Type 2 diabetes mellitus with diabetic microalbuminuria, with long-term current use of insulin ([facility] V24, [facility] V28) (Primary Dx); Essential hypertension, benign; Mixed hyperlipidemia; Osteopenia, unspecified location; Chronic midline low back pain without sciatica; Spondylosis of cervical region without myelopathy or radiculopathy; Anxiety and depression; Other fatigue 11/01/2024 Telephone [facility] [place] [facility] [place], [place] [address] [place] [address] Jose C Birch MD from Last 3 Months Immunizations Name Administration Dates Next Due Influenza Quadravalent, 0.5ml (Fluad) 65yo and o lder 01/18/2022 Influenza Quadravalent, 0.5m l (Fluzone High-dose) 65yo and older 01/01/2023,02/03/2021 Influenza Quadrivalent, 0.5m l, preservative free (Fluarix; FluLaval; Fluzone) ages 6mo and older (Afluria) 3yo and older 03/05/2019 Influenza trivalent, 0.5mL (Fluad) 65yo and olde r 02/09/2024 Influenza, Unspecified 01/19/2023 Pneumococcal conjugate 20 va lent (Prevnar 20, PCV 20) 2mo and older 05/04/2024 Tdap Tetanus diptheria acell ular pertussis (Boostrix; Adacel) 7yo and older 11/28/2018 Surgical History Surgery Date Site/Laterality Comments CHOLECYSTECTOMY PROCEDURE: HISTORICAL CHOLECYSTECTOMY HYSTERECTOMY PROCEDURE: HISTORICAL TOTAL HYSTERECTOMY WITH BSO LUMBAR LAMINECTOMY PROCEDURE: HISTORICAL LUMB LAMINECTOMY OTHER SURGICAL HISTORY PROCEDURE: [place] ARTHRD ANT INTERBODY MIN DSC CRV BELOW C2 ROTATOR CUFF REPAIR PROCEDURE: HISTORICAL ROTATOR CUFF REPAIR; COMMENT: left Medical History Medical History Date Comments Other and unspecified hyperlipidemia DX:Other and unspecified hyperlipidemia Mitral valve disorders(424.0) DX :Mitral valve disorders(424.0) 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 Essential hypertension, benign 10/07/2005 D X:Essential hypertension, benign Backache, unspecified 10/07/2005 DX:Backach e, unspecified Family History Medical History Relation Name Comments Other: heart trouble Father Arthritis Mother hx fibromyalgia Diabetes Mother heart trouble Other cancer Mother Relation Name Status Comments Father Mother Social History Tobacco Use Types Packs/Day Years Used Date Smoking Tobacco: Never Smokeless Tobacco: Never Tobacco Cessation:Counseling Given: Not Answered Alcohol Use Standard Drinks/Week Comments No 0 (1 standard drink = 0.6 oz pur e alcohol) Housing Instability Answer Date Recorde d Are you worried that in the next 2 months you may not have stable housing? Patient declined 10/28/2024 Food Access & Nutrition Answer Date Rec orded Do you have access to a vari ety of food including fruits and vegetables? Patient declined 10/28/2024 Access to Healthcare Answer Date Record ed Within the last 3 months, ho w many times did you visit the emergency department for your medical care? 0 10/28/2024 Health Literacy Answer Date Recorded How often do you need to hav e someone help you when you read instructions, pamphlets, or other written material from your doctor or pharmacy? Patient declined 10/28/2024 Caregiver: How often do you need to have someone help you when you read instructions, pamphlets, or other written material from your doctor or pharmacy? Not on file 025 Financial Risk Answer Date Recorded How hard is it for you to pa y for the very basics like food, housing, medical care, and air conditioning / heating? Patient declined 10/28/2024 Transportation Answer Date Recorded Has the lack of transportati on kept you from meetings, work, or from getting things needed for daily living? Patient declined 10/28/2024 Has the lack of transportati on kept you from medical appointments or from getting medications? Patient declined 10/28/2024 Social Isolation Answer Date Recorded How often do you feel lonely or isolated from those around you? Patient declined 10/28/2024 Food Risk Answer Date Recorded Within the past 12 months we worried whether our food would run out before we got money to buy more. Sometimes true 025 Within the past 12 months th e food we bought just didn't last and we didn't have money to get more. Patient declined 09/2024 Dependent Care Answer Date Recorded Do you need help finding or paying for care for your loved ones. For example, infant childcare provider or elderly care for an older adult? Patient declined 10/28/2024 Education Answer Date Recorded Do you think completing more education or training, like finishing a GED, going to college, or learning a trade, would be helpful for you? Patient declined 10/28/2024 Employment and Income Answer Date Recor ded During the last four weeks, have you been actively looking for work? Patient declined 10/28/2024 Living Situation Answer Date Recorded What is your living situation? 0 10/28/2024 Comments No Sex and Gender Information Value Date Recorded Sex Assigned at Not on file Legal Sex Female 6:08 AM EST Gender Identity Not on file Sexual Orientation Not on file Obstetrics History Last Filed Vital Signs Vital Sign Reading Time Taken Comments Blood Pressure 144/84 11/01/2024 11:36 AM EDT Pulse 78 11/01/2024 11:06 AM EDT Temperature 36 C (96.8 F) 11/01/2024 11:06 AM EDT Respiratory Rate 16 11/01/2024 11:06 AM EDT Oxygen Saturation - - Inhaled Oxygen Concentration - - Weight 90.7 kg (200 lb) 11/01/2024 11:06 AM EDT Height 167.6 cm (5' 6 ) 11/01/2024 11:06 AM EDT Body Mass Index 32.28 11/01/2024 11:06 AM EDT Plan of Treatment Upcoming Encounters Date Type Department Care Team (Late st Contact Info) Description 05/06/2025 9:00 AM EST Office Visit Adult Medicine [address] [phone] Jose C Birch MD [address] [place] [phone] Health Maintenance Due Date Last Done Comments Diabetes: Annual Retina Eye Exam 1964 Zoster Vaccines (1 of 2) 1973 RSV Immunization Adult Patients (1 - Risk 60-74 years 1-dose series) 2014 COVID-19 Vaccine (6 - Pfizer risk 2023- season) 2024 02/20/2024, 01/21/2022, 03/22/2021, Additional history exists Influenza Vaccine (#1) 2024 , 01/19/2023, 01/01/2023, Additional history exists Diabetes: Blood Sugar Control Test (HGBA1C) 03/26/2025 09/24/2024, 09/28/2023, 09/28/2023 Diabetes: Annual Foot Exam 05/04/2025 05/04/2024 Falls Risk Assessment 05/04/2025 05/04/2024, 025 Medicare Annual Wellness Visit 05/04/2025 05/04/2024 Diabetes: Annual Urine Albumin-Creatinine Ratio (uACR) 09/24/2025 09/24/2024, 09/28/2023 Diabetes: Annual GFR (Glomerular Filtration Rate) 09/24/2025 09/24/2024, 09/28/2023, 09/28/2023 Hypertension/CHF/CAD Annual BMP Blood Test 09/24/2025 09/24/2024, 09/28/2023, 09/28/2023 Social Influencers of Health Screening 10/28/2025 10/28/2024 Breast Cancer Screening 11/01/2026 11/01/2024 DTaP,Tdap,and Td Vaccines (3 - Td or Tdap) 11/28/2028 11/28/2018, 10/14/2012 Cholesterol Screening (Lipid Panel) 09/24/2029 09/24/2024, 09/28/2023, 09/28/2023 Osteoporosis Screening (Bone Density Screening) 11/20/2033 11/21/2023 Colorectal Cancer Screening: Colonoscopy 03/09/2034 03/09/2024 Hepatitis C Screening Completed 05/05/2023, 024 Pneumococcal Vaccine: 50+ Years Completed 05/04/2024 Depression Screening Completed 10/28/2024 HIB Vaccines Aged Out No longer eligi ble based on patient's age to complete this topic HPV Vaccines Aged Out No longer eligi ble based on patient's age to complete this topic Hepatitis A Vaccines Aged Out No long er eligible based on patient's age to complete this topic Hepatitis B Vaccines Aged Out No long er eligible based on patient's age to complete this topic IPV Vaccines Aged Out No longer eligi ble based on patient's age to complete this topic MMR Vaccines Aged Out No longer eligi ble based on patient's age to complete this topic Meningococcal ACWY Vaccine Aged Out N o longer eligible based on patient's age to complete this topic Meningococcal B Vaccine Aged Out No l onger eligible based on patient's age to complete this topic RSV Immunization Patients Under 20 months Aged Out No longer eligible based on patient's age to complete this topic Varicella Vaccines Aged Out No longer eligible based on patient's age to complete this topic Procedures Procedure Name Priority Date/Time Associated Diagnosis Comments MG MAMMO DIGITAL SCREENING BILAT Routine 11/01/2024 2:41 PM EDT MICROALBUMIN CREATININE URINE RATIO Routine 09/24/2024 9:22 AM EDT Type 2 diabetes mellitus with other specified complication, with long-term current use of insulin ([facility] V24, [facility] V28) COMPREHENSIVE METABOLIC PANEL Routine 09/24/2024 9:20 AM EDT Type 2 diabetes mellitus with other specified complication, with long-term current use of insulin ([facility] V24, [facility] V28[facility] Diabetic peripheral neuropathy ([facility] V24, [facility] V28) Encounter for screening mammogram for malignant neoplasm of breast Essential hypertension, benign Mixed hyperlipidemia Osteopenia, unspecified location Chronic midline low back pain without sciatica Spondylosis of cervical region without myelopathy or radiculopathy Anxiety and depression Encounter for subsequent annual wellness visit (AWV) in Medicare patient HEMOGLOBIN A1C Routine 09/24/2024 9:20 AM EDT Type 2 diabetes mellitus with other specified complication, with long-term current use of insulin ([facility] V24, [facility] V28) LIPID PANEL WITH REFLEX TO DIRECT LDL Routine 09/24/2024 9:20 AM EDT Type 2 diabetes mellitus with other specified complication, with long-term current use of insulin ([facility] V24, [facility] V28) EXTERNAL COLONOSCOPY REPORT Routine 03/09/2024 4:41 PM EST HARVINDER DEXA AXIAL SKELETON Routine 11/21/2023 8:27 AM EDT Other specified disorders of bone density and structure, other site HM HEPATITIS C SCREENING Routine 05/05/2023 from Last 3 Months or Most Recently Relevant to Health Maintenance Results * MG Mammo Digital Screening bilat (11/01/2024 2:41 PM EDT) Anatomical Region Laterality Modality Breast Bilateral Mammography us Historical Provider MD RAE BI PROCEDURES Final R esult * (ABNORMAL) Microalbumin creatinine urine ratio (09/24/2024 9:22 AM EDT) Creatinine, Urine 294.0 mg/dL LAB CHEMISTRY METHOD 09/24/2024 1:[address] [facility] Microalb, Ur 46.2(H) 0.0 - 29.0 mg/L LAB CHEMISTRY METHOD 09/24/2024 1:[address] [facility] Microalb/Crea t Ratio 16 <30 mg/g creat LAB CHEMISTRY METHOD 09/24/2024 1:[address] [facility] Urine Urine specimen from urethra / Unknown Non-blood Collection / Unknown 09/24/2024 9:22 AM EDT 09/24/2024 9:22 AM EDT Florina MILLER LAB URINE ORDERABLES Final Result [facility] [address] [place] [address], * (ABNORMAL) Lipid panel with reflex to direct LDL (09/24/2024 9:20 AM EDT) Cholesterol 273(H) 0 - 200 mg/dL LAB CHEMISTRY METHOD 09/24/2024 2:[address] [facility] Triglycerides 153(H) 0 - 150 mg/dL LAB CHEMISTRY METHOD 09/24/2024 2:[address] [facility] HDL 93 >=40 mg/dL LAB CHEMISTRY METHOD 09/24/2024 2:[address] [facility] LDL Calculated 149(H) 0 - 100 mg/dL LAB CHEMISTRY METHOD 09/24/2024 2:[address] [facility] VLDL Cholesterol Calin 30.6 mg/dL LAB CHEMISTRY METHOD 09/24/2024 2:[address] [facility] Non HDL Chol. (LDL+VLDL) 180(H) <145 mg/dL LAB CHEMISTRY METHOD 09/24/2024 2:[address] [facility] Chol/HDL Ratio 2.9 0.0 - 4.4 LAB CHEMISTRY METHOD 09/24/2024 2:[address] [facility] Blood Venous blood specimen / Unknown Venipuncture / Unknown 09/24/2024 9:20 AM EDT 09/24/2024 9:20 AM EDT Florina MILLER LAB BLOOD ORDERABLES Final Result [facility] [address] [place] [address], * Hemoglobin A1c (09/24/2024 9:20 AM EDT) Hemoglobin A1C 6.2 <6.5 % LAB CHEMISTRY METHOD 09/24/2024 1:[address] [facility] Mean Bld Glu Estim. 131 mg/dL LAB CHEMISTRY METHOD 09/24/2024 1:[address] [facility] Blood Venous blood specimen / Unknown Venipuncture / Unknown 09/24/2024 9:20 AM EDT 09/24/2024 9:20 AM EDT us Florina MILLER LAB BLOOD ORDERABLES Final Result [facility] [address] [place] [address], * Comprehensive metabolic panel (09/24/2024 9:20 AM EDT) Sodium 142 133 - 145 mmol/L LAB CHEMISTRY METHOD 09/24/2024 2:[address] [facility] Potassium 4.3 3.5 - 5.5 mmol/L LAB CHEMISTRY METHOD 09/24/2024 2:55 PM [facility] Chloride 106 96 - 110 mmol/L LAB CHEMISTRY METHOD 09/24/2024 2:55 PM [facility] CO2 27 21 - 32 mmol/L LAB CHEMISTRY METHOD 09/24/2024 2:55 PM [facility] Anion Gap 9 3 - 11 LAB CHEMISTRY METHOD 09/24/2024 2:55 PM [facility] Glucose 82 70 - 100 mg/dL LAB CHEMISTRY METHOD 09/24/2024 2:55 PM [facility] BUN 14 5 - 25 mg/dL LAB CHEMISTRY METHOD 09/24/2024 2:55 PM [facility] Creatinine 0.90 0.50 - 1.10 mg/dL LAB CHEMISTRY METHOD 09/24/2024 2:55 PM [facility] eGFR 69 >=60 mL/min/1. 73m2 LAB CHEMISTRY METHOD 09/24/2024 2:55 PM [facility] Comment:Calculation based on the Chronic Kidney Disease Epidemiology Collaboration (CKD-EPI) equation refit without adjustment for race. BUN/Creatinine Ratio 15.6 LAB CHEMISTRY METHOD 09/24/2024 2:55 PM [facility] Calcium 8.9 8.5 - 10.5 mg/dL LAB CHEMISTRY METHOD 09/24/2024 2:[address] [facility] AST (SGOT) 14 10 - 42 unit/L LAB CHEMISTRY METHOD 09/24/2024 2:[address] [facility] ALT (SGPT) 29 10 - 60 unit/L LAB CHEMISTRY METHOD 09/24/2024 2:[address] [facility] Alkaline Phosphatase 76 42 - 121 unit/L LAB CHEMISTRY METHOD 09/24/2024 2:[address] [facility] Total Protein 6.5 6.0 - 8.0 g/dL LAB CHEMISTRY METHOD 09/24/2024 2:[address] [facility] Albumin 3.4 3.2 - 5.0 g/dL LAB CHEMISTRY METHOD 09/24/2024 2:[address] [facility] Total Bilirubin 0.5 0.0 - 1.4 mg/dL LAB CHEMISTRY METHOD 09/24/2024 2:[address] [facility] Blood Venous blood specimen / Unknown Venipuncture / Unknown 09/24/2024 9:20 AM EDT 09/24/2024 9:20 AM EDT us Jose C Birch MD LAB BLOOD ORDERABLES Final Result [facility] [address] [place] [address], * External Colonoscopy Report (03/09/2024 4:41 PM EST) Anatomical Region Laterality Modality Endoscopy us Historical Provider GI~PROCEDURE ORDERABLES F inal Result * HARVINDER DEXA AXIAL SKELETON (11/21/2023 8:27 AM EDT) Anatomical Region Laterality Modality Mammography 11/18/2023 10:3 5 AM EDT Narrative 11/21/2023 8:27 AM EDT [facility] Diagnostic Imaging Department [address] [place] [id number] Patient: ADDIE JOSÉ Richard /Age/Sex: 1955 - 67 - F Unit#: [id number] Location/Status: SPDIMAM/REG CLI Mnemonic/Ordering Site: [facility]X/SPMAM Ordering Physician: JOSE C BIRCH MD Harvinder Dexa Axial Skeleton - 11/18/23 - 1117 Report Status:Signed HISTORY: The patient is a 67-year-old postmenopausal female with clinical concern for metabolic bone disease. FINDINGS: Dual energy x-ray absorptiometry of the lumbar spine and femurs is performed. The mean bone mineral density at L1-2 is 1.021 gm/cm2 which is 88% of that of young normals and 93% of that of age matched controls. This yields a T- score of -1.2 and a Z-score of -0.6 which is diagnostic of osteopenia. The mean bone mineral density of the femurs bilaterally is 0.927 gm/cm2 which is 92% of that of young normals and 100% of that of age matched controls. This yields a T-score of -0.6 and a Z-score of 0.0 and there is therefore no evidence of osteoporosis or osteopenia here. However, the T-score of the right femoral neck is -1.2 and that of the left femoral neck is -1.3 which is diagnostic of osteopenia. IMPRESSION: 1. Osteopenia. 2. FRAX analysis yields a 10-year probability of major osteoporotic fracture of 13.5% and a 10-year probability of hip fracture of 1.5%. Code 27158 Dictating Physician: PIEDAD BAUTISTA MD Electronically Signed by: PIEDAD BAUTISTA MD Dic Date/Time: 11/21/23825 Sign date/Time: 11/21/23826 Procedure Note Piedad Bautista MD - 02/08/2024 [facility] Diagnostic Imaging Department [address] [place] [id number] Patient: ADDIE JOSÉ Richard Ni./Age/Sex: 1955 - 67 - F Unit#: [id number] [facility] Ordering Physician: JOSE C BIRCH MD [facility] Dexa Axial Skeleton - 11/18/23 - 1117 Report Status:Signed HISTORY: The patient is a 67-year-old postmenopausal female withclinical concern for metabolic bone disease. FINDINGS: Dual energy x-ray absorptiometry of the lumbar spine and femursis performed. The mean bone mineral density at L1-2 is 1.021 gm/cm2 which is88% of that of young normals and 93% of that of age matched controls. This yieldsa T- score of -1.2 and a Z-score of -0.6 which is diagnostic of osteopenia. The mean bone mineral density of the femurs bilaterally is 0.927 gm/zp6iabsc is 92% of that of young normals and 100% of that of age matched controls.This yields a T-score of -0.6 and a Z-score of 0.0 and there is therefore noevidence of osteoporosis or osteopenia here. However, the T-score of the rightfemoral neck is -1.2 and that of the left femoral neck is -1.3 which is diagnosticof osteopenia. IMPRESSION: 1. Osteopenia. 2. FRAX analysis yields a 10-year probability of major osteoporoticfracture of 13.5% and a 10-year probability of hip fracture of 1.5%. Code 08596 Dictating Physician: PIEDAD BAUTISTA MD Electronically Signed by: PIEDAD BAUTISTA MD Dic Date/Time: 11/21/23825 Sign date/Time: 11/21/23826 Jose C Birch MD IMG BI PROCEDURES Final Res ult * Hepatitis C Screening (05/05/2023) Pathologist [facility] Hepatitis C Screening abstracted Historical Provider HEALTH MAINTENANCE Final Result from Last 3 Months or Most Recently Relevant to Health Maintenance Insurance * Guarantor: Addie José Account Type Relation to Patient Date of Phone Billing Address Personal/Family Self 1955 [phone] (Work) [address] [place] [address] [employer] [place] Advance Directives Documents on File Type Date Recorded Patient Consulting Actuary Expl anation Health Care Decision (hx) 07/29/2010 AD DIAS DIRECTIVE Health Care Decision (hx) 07/29/2010 AD DIAS DIRECTIVE Health Care Decision (hx) 07/29/2010 AD DIAS DIRECTIVE Health Care Decision (hx) 07/29/2010 AD DIAS DIRECTIVE Health Care Decision (hx) 07/29/2010 AD DIAS DIRECTIVE Health Care Decision (hx) 07/29/2010 AD DIAS DIRECTIVE 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
== END 2024-12-20 11:09 | disposition home or self-care (01) ==
LOC: HO.PMC 10:06
PROVIDERS: PCP Nurse Practitioner Family; Visit Provider Nurse Practitioner Family
DX: M53.3 Sacrococcygeal disorders, not elsewhere classified (principal); M96.1 Postlaminectomy syndrome, not elsewhere classified; M54.16 Radiculopathy, lumbar region; M47.819 Spondylosis without myelopathy or radiculopathy, site unspecified
CPT/HCPCS: 99214; G2211

== ENCOUNTER → 2024-12-20 10:05 | Outpatient (BNVA) | payer MEDICARE, MEDICAID, SELFPAY | PROVIDERS: PCP Nurse Practitioner Family; Visit Provider Nurse Practitioner Family | DX: M53.3 Sacrococcygeal disorders, not elsewhere classified (principal); M96.1 Postlaminectomy syndrome, not elsewhere classified; M54.16 Radiculopathy, lumbar region; M47.819 Spondylosis without myelopathy or radiculopathy, site unspecified | CPT/HCPCS: 99212 ==